=== PATIENT | female | born 1945 | race Caucasian/White ===

== ENCOUNTER 2017-03-18 19:46 | Emergency (ER) | payer MEDICARE, BC ==
[~2017-03-18] VITALS: Ht 160 cm; Wt 90.7 kg
[~2017-03-18 19:46] MED LIST: ALN70T; BPR150TCR PO; CHOL10003 PO; CYAN100021 PO; CYAN10007 PO; Calcium PO; DULO60CA6 PO; HYDR1TAB PO; LEVO500T69 PO; LISI1TAB2 PO; LVT.1T PO; METF500T8 PO; METR500T PO; MULT-963 PO; NF-ESOM40C PO; PRM25T PO; TMZP15C; TMZP15C PO; VENL25TA5; VIT1TABL57 PO
--- NOTE | 2017-03-18 19:53 | ED Fall/Injury ---
General Chief Complaint: Trauma-Non Activation Stated Complaint: FALL Source: patient Exam Limitations: no limitations History of Present Illness Time seen by provider: 19:51 Initial Comments To ER per EMS from home with reports of a fall. Patient tripped over her carpet at home striking face first on the floor. She did have epistaxis that seems to have improved. She does have a deformity to left wrist. Occurred: just prior to arrival Severity: moderate Injuries/Pain Location: head, face, neck Allergies and Home Medications Allergies Coded Allergies: morphine (Unverified Allergy, Intermediate, RED RASH WITH HIVES, 07/28/13) Sulfa (Sulfonamide Antibiotics) (Verified Allergy, Unknown, 11/03/06) Home Medications Amoxicillin 500 Mg Capsule, 500 MG PO TID, #21 Prescribed by: JOSE ALFREDO LLOYD on 03/18/171 Bupropion Hcl 150 Mg Tablet, 1 TAB PO DAILY, #30 (Reported) Cholecalciferol 1,000 Unit Tablet, 1,000 UNIT PO DAILY, (Reported) Cyanocobalamin 1,000 Mcg Tablet.sa, 1,000 MCG PO DAILY, (Reported) Esomeprazole Mag Trihydrate 40 Mg Capsule.dr, 40 MG PO DAILY, (Reported) Hydrocodone/Acetaminophen 1 Each Tablet, 1 EACH PO Q4H PRN for PAIN-MODERATE TO SEVERE, #30 Prescribed by: JOSE ALFREDO LLOYD on 03/18/172116 Levothyroxine Sodium 100 Mcg Tablet, 100 MCG PO DAILY, (Reported) Lisinopril/Hydrochlorothiazide 1 Each Tablet, 1 TAB PO DAILY, (Reported) Multivitamin 1 Each Tablet, 1 EACH PO DAILY, (Reported) Constitutional: see HPI Eyes: No Symptoms Reported Ears, Nose, Mouth, Throat: no symptoms reported Respiratory: no symptoms reported Cardiovascular: no symptoms reported Genitourinary: no symptoms reported Musculoskeletal: no symptoms reported Skin: no symptoms reported Psychiatric/Neurological: No Symptoms Reported Past Zwjtnwe-Juckcb-Aiorzu Hx Patient Social History Alcohol Use: Denies Use Recreational Drug Use: No Smoking Status: Never a Smoker Recent Hopitalizations: No Immunizations Up To Date Tetanus Booster (TDap): Unknown PED Vaccines UTD: Yes Date of Pneumonia Vaccine: Jul 04, 2009 Date of Influenza Vaccine: Jul 17, 2014 Seasonal Allergies Seasonal Allergies: Yes Surgeries HX Surgeries: Yes (TUMOR UNDER KNEE CAP, TUMOR BEHIND THYROID) Respiratory Hx Respiratory Disorders: No Cardiovascular Hx Cardiac Disorders: No Neurological Hx Neurological Disorders: No Reproductive System Hx Reproductive Disorders: No (HYSTERECTOMY) Sexually Transmitted Disease: No HIV/AIDS: No Female Reproductive Disorders: Denies Genitourinary Hx Genitourinary Disorders: No Gastrointestinal Hx Gastrointestinal Disorders: No Gastrointestinal Disorders: Abdominal Hernia, Gastroesophageal Reflux, Gastrointestinal Bleed, Hiatal Hernia Musculoskeletal Hx Musculoskeletal Disorders: Yes (L ANKLE) Musculoskeletal Disorders: Fibromyalgia, Fractures Endocrine Hx Endocrine Disorders: Yes Endocrine Disorders: Hypothyroidsim, Diabetes, Non-Insulin dep HEENT HX ENT Disorders: Yes HEENT Disorders: Cataract Cancer Hx Cancer: No Psychosocial Hx Psychiatric Problems: Yes Behavioral Health Disorders: Depression Integumentary HX Skin/Integumentary Disorder: Yes (ADULT ACNE) Blood Transfusions Hx Blood Disorders: Yes (ANEMIA) Adverse Reaction to a Blood Tr: No Family Medical History Significant Family History: No Pertinent Family Hx Physical Exam Vital Signs Vital Sign - Last 12Hours 03/18/17 03/18/17 19:48 21:13 Temp 98.0 Pulse 86 Resp 18 B/P (MAP) 111/52 Pulse Ox 98 O2 Delivery Room Air O2 Flow Rate 2.00 Capillary Refill : General Appearance: WD/WN, no apparent distress HEENT: PERRL/EOMI, normal ENT inspection, TMs normal, other (dried blood in nose, no septal hematoma, no active bleeding. ) Neck: non-tender, full range of motion Respiratory: normal breath sounds, no respiratory distress, no accessory muscle use Gastrointestinal: normal bowel sounds, non tender, soft Extremities: other (deformity of left wrist. distally neurovascularly intact. ) Neurologic/Psychiatric: alert, normal mood/affect, oriented x 3 Skin: normal color, warm/dry Comments I did end up cauterizing the right side of the nasal septum with one stick of silver nitrate for a slow but persistent oozing of blood from the anterior septum. Deven Coma Score Best Eye Response: (4) Open Spontaneously Best Verbal Response: (5) Oriented Best Motor Response: (6) Obeys Commands [place] Total: 15 Splinting and Joint Reduction : Pre-Proc Neuro Vasc Exam: normal Post-Proc Neuro Vasc Exam: normal, unchanged from pre-exam Hand-Made Type: orthoglass Splint Application: Short Arm Progress/Results/Core Measures Results/Orders My Orders Orders - JOSE ALFREDO LLOYD APRN Lidocaine 2% Injection 20 Ml (Xylocaine (03/18/17 20:00) Fentanyl Injection (Sublimaze Injection (03/18/17 20:00) Ct Head/Face/Cervical Wo (03/18/17 19:49) Forearm, Left, 2 Views (03/18/17 19:49) Fentanyl Injection (Sublimaze Injection (03/18/17 20:45) Midazolam Injection (Versed Injection) (03/18/17 20:45) Forearm, Left, 2 Views (03/18/17 21:08) Oxymetazoline 0.05% Nasal [place] (Afrin 0. (03/19/17 09:00) Forearm, Right, 2 Views (03/18/17 21:11) Rx-Hydrocodone/Apap 5-325 Mg (Rx-Vicodin (03/18/17 21:45) Medications Given in ED Current Medications Medications Dose Ordered Sig/Barber Route Start Time Stop Time Status Last Admin Dose Admin Acetaminophen/ Hydrocodone Bitart 1 ea Q4H PRN PO 03/18/17 21:45 03/18/17 21:52 DC 03/18/17 21:51 1 EA Fentanyl Citrate 75 mcg ONCE ONCE IVP 03/18/17 20:00 03/18/17 20:01 DC 03/18/17 19:57 75 MCG Fentanyl Citrate 75 mcg ONCE ONCE IVP 03/18/17 20:45 03/18/17 20:46 DC 03/18/17 20:54 75 MCG Lidocaine HCl 20 ml ONCE ONCE INJ 03/18/17 20:00 03/18/17 20:01 DC 03/18/17 20:53 10 ML Midazolam HCl 2 mg ONCE ONCE IVP 03/18/17 20:45 03/18/17 20:46 DC 03/18/17 20:54 2 MG Vital Signs/I&O Vital Sign - Last 12Hours 03/18/17 03/18/17 19:48 21:13 Temp 98.0 Pulse 86 Resp 18 B/P (MAP) 111/52 Pulse Ox 98 O2 Delivery Room Air Nasal Cannula O2 Flow Rate 2.00 Progress Note : Progress Note 2110-conscious sedation was done to reduce the dorsally angulated distal radius fracture. Patient was given a total of 75 g of fentanyl and 2 mg of Versed. She had no episodes of desaturation or apnea. She remained arousable to verbal stimuli during the procedure and tolerated the procedure well. She additionally got 10 mL of 2 percent lidocaine as a hematoma block. She was then splinted using a sugar tong style splint with 3 inch Ortho-Glass. ECG Initial ECG Impression Date: Mar 18, 2017 Diagnostic Imaging Diagonstic Imaging: CT Comments NAME: JANICE CASTILLO MED REC#: [id number] PT STATUS: REG ER : 1945 PHYSICIAN: JOSE ALFREDO LLOYD LOAN OPERATIONS MANAGER ADMIT DATE: 03/18/17/ER Signed Date of Exam:03/18/17 CT HEAD/FACE/CERVICAL WO PROCEDURE: CT head, face, and cervical spine without contrast. TECHNIQUE: Multiple contiguous axial images were obtained through the head, neck, and facial bones without the use of intravenous contrast. Sagittal and coronal reformations through the cervical spine and facial bones were also performed. INDICATION: Fall. Head injury. COMPARISON: None FINDINGS: Head CT: No acute intracranial hemorrhage, mass effect or edema is demonstrated. Snell-white junction is preserved. The ventricles appear normal. No acute focal lesion is suspected. Maxillofacial CT: There is a comminuted nondisplaced nasal fracture. No additional fracture or malalignment is seen. Nasal septum is minimally tortuous to the left with small septal spur. There is minimal mucosal thickening in the ethmoid sinuses. Sinuses otherwise appear clear as visualized. Orbits appear intact. Cervical spine CT: No acute fracture, traumatic malalignment or osseous destructive process is seen. Vertebral body heights are maintained. There is disc space narrowing and spurring at C5/C6.. There is facet arthropathy throughout the cervical spine. There is minimal anterior subluxation of C3 on C4 and C4 and C5, likely degenerative. There are multiple levels of foraminal narrowing. IMPRESSION: 1. No evidence of an acute intracranial abnormality. 2. Nondisplaced comminuted nasal fracture. No additional maxillofacial fracture is seen. 3. No evidence of an acute cervical spine fracture. Degenerative changes as described. Dictated by: Dictated on workstation # [id number] Dict: 03/18/172046 Trans: 03/18/172104 [facility] [id number] Interpreted by: JOSR RAMIREZ DO Electronically signed by: JOSR RAMIREZ DO 03/18/172104 NAME: JANICE CASTILLO MED REC#: [id number] PT STATUS: REG ER : 1945 PHYSICIAN: JOSE ALFREDO LLOYD APRN ADMIT DATE: 03/18/17/ER Signed Date of Exam:03/18/17 FOREARM, LEFT, 2 VIEWS INDICATION: Fall. Pain. COMPARISON: None. EXAMINATION: Two views of the left forearm were obtained. FINDINGS: There is an impacted angulated fracture of the distal radius and distal ulna with moderate (greater than 45 degrees) dorsal angulation of the distal fracture fragments. No additional fracture or malalignment is seen. IMPRESSION: Dorsally angulated impacted distal radius and ulnar fractures, as described. Report was called to DOMENICA Khanna in the [facility], [place], operated by [facility] at 8:22 p.m., by heydi. Dictated by: Dictated on workstation # [id number] Dict: 03/18/172016 Trans: 03/18/172031 [facility] [id number] Interpreted by: JOSR RAMIREZ DO Electronically signed by: JOSR RAMIREZ DO 03/18/172031 Departure Impression Impression: Primary Impression: Fall at home Additional Impressions: Epistaxis Nasal fracture Wrist fracture Disposition: 01 HOME, SELF-CARE Condition: Stable Departure-Patient Inst. Decision time for Depature: 21:10 Referrals: KAREN SANDOVAL MD, JON C MD OGDEN, JOHN T MD ORENDER, JACQUELINE S DO (PCP/Family) Primary Care Physician MEREDITH MACIEL MICHAEL P MD Patient Instructions: Wrist Fracture (DC) Add. Discharge Instructions: 1. Wear the splint at all times. Do not take it off even to shower. He should keep this dry when showering so placed a trash bag over this and duct tape it around the upper arm. Take pain medication as directed. Call one of the orthopedic surgeons of your choosing tomorrow morning at 8 a.m. to make an appointment to be seen sometime next week. Take pain medication as directed. Keep the hand elevated to help reduce swelling. Return to ER for any intolerable pain, loss of sensation to the fingertips or any other concerns. 2. You've also broken her nasal bones. Take antibiotics as directed for this and call Dr. Sandoval for an appointment for follow-up. Do not blow your nose. All discharge instructions reviewed with patient and/or family. Voiced understanding. Scripts Amoxicillin (Amoxicillin) 500 Mg Capsule 500 MG PO TID, #21 CAP Prov: JOSE ALFREDO LLOYD APRN 03/18/17 Hydrocodone/Acetaminophen ([place] 5-325 Tablet) 1 Each Tablet 1 EACH PO Q4H Y for PAIN-MODERATE TO SEVERE, #30 TAB Prov: JOSE ALFREDO LLOYD APRN 03/18/17 Copy Copies To 1: DAJA WILSON PETER J APRN Mar 18, 2017 19:53
[2017-03-18] MEDS ORDERED: fentaNYL INJECTION 100 MCG/2 ML AMP IVP ONE ×2 (20:00→20:45)
[2017-03-18] MEDS ORDERED: LIDOCAINE 2% 20 ML (XYLOCAINE) VIAL INJ ONE (20:00)
--- NOTE | 2017-03-18 20:24 | Diagnostic Imaging Report ---
INDICATION: Fall. Pain. COMPARISON: None. EXAMINATION: Two views of the left forearm were obtained. FINDINGS: There is an impacted angulated fracture of the distal radius and distal ulna with moderate (greater than 45 degrees) dorsal angulation of the distal fracture fragments. No additional fracture or malalignment is seen. IMPRESSION: Dorsally angulated impacted distal radius and ulnar fractures, as described. Report was called to DOMENICA Khanna in the [facility] ER at 8:22 p.m., by niko. Dictated by: Dictated on workstation # [id number]
[2017-03-18] MEDS ORDERED: MIDAZOLAM 2 MG/2 ML (VERSED) VIAL IVP ONE (20:45)
--- NOTE | 2017-03-18 20:56 | Diagnostic Imaging Report ---
PROCEDURE: CT head, face, and cervical spine without contrast. TECHNIQUE: Multiple contiguous axial images were obtained through the head, neck, and facial bones without the use of intravenous contrast. Sagittal and coronal reformations through the cervical spine and facial bones were also performed. INDICATION: Fall. Head injury. COMPARISON: None FINDINGS: Head CT: No acute intracranial hemorrhage, mass effect or edema is demonstrated. Snell-white junction is preserved. The ventricles appear normal. No acute focal lesion is suspected. Maxillofacial CT: There is a comminuted nondisplaced nasal fracture. No additional fracture or malalignment is seen. Nasal septum is minimally tortuous to the left with small septal spur. There is minimal mucosal thickening in the ethmoid sinuses. Sinuses otherwise appear clear as visualized. Orbits appear intact. Cervical spine CT: No acute fracture, traumatic malalignment or osseous destructive process is seen. Vertebral body heights are maintained. There is disc space narrowing and spurring at C5/C6.. There is facet arthropathy throughout the cervical spine. There is minimal anterior subluxation of C3 on C4 and C4 and C5, likely degenerative. There are multiple levels of foraminal narrowing. IMPRESSION: 1. No evidence of an acute intracranial abnormality. 2. Nondisplaced comminuted nasal fracture. No additional maxillofacial fracture is seen. 3. No evidence of an acute cervical spine fracture. Degenerative changes as described. Dictated by: Dictated on workstation # [id number]
[2017-03-18] MEDS ORDERED: HYDR-757 PO (21:17)
[2017-03-18] MEDS ORDERED: AMOX500C2 PO (21:21)
--- NOTE | 2017-03-18 21:36 | Diagnostic Imaging Report ---
INDICATION: Postreduction. COMPARISON: 03/18/2017 at 8:11 p.m. EXAMINATION: Two views of the left forearm were obtained through cast material 03/18/2017 at 9:37 p.m. FINDINGS: There has been interval reduction of the angulated distal radius and ulnar fractures. There is some minimal (2-3 mm) lateral displacement of the distal fracture fragments at the radius and ulna. Alignment otherwise appears nearly anatomic. IMPRESSION: Previously described dorsal angulation of the distal radius and ulnar fracture fragments has been reduced. There is minimal lateral angulation of the distal radius and ulnar fracture fragments, as described. Dictated by: Dictated on workstation # [id number]
--- NOTE | 2017-03-18 21:36 | Diagnostic Imaging Report ---
INDICATION: Fall. Pain. COMPARISON: None. EXAMINATION: Two views of the right forearm were obtained. FINDINGS: No acute fracture, malalignment or osseous destructive process is seen. IMPRESSION: Negative right forearm. Dictated by: Dictated on workstation # [id number]
[2017-03-18] MEDS ORDERED: RX-HYDROCODONE/APAP 5/325 MG #4 TAB PK PO PRN (21:45)
[2017-03-18 21:54] VITALS: BP 144/83
[2017-03-19] MEDS ORDERED: OXYMETAZOLINE (AFRIN) 0.05% NA 15 ML BTL SCH (09:00)
== END 2017-03-18 21:52 | disposition home or self-care (01) ==
LOC: EDUNIT# 19:46 → ER 19:47
DX: S02.2XXA Fracture of nasal bones, initial encounter for closed fracture (principal); S62.91XA Unspecified fracture of right hand, initial encounter for closed fracture; R04.0 Epistaxis; W01.198A Fall on same level from slipping, tripping and stumbling with subsequent striking against other object, initial encounter
CPT/HCPCS: 70450; 70486; 72125; 73090; 93041

== ENCOUNTER → 2017-05-19 | Outpatient (CLI) | payer MEDICARE ==
[~2017-05-19] MED LIST changes: +AMOX500C2 PO; +HYDR-757 PO
--- NOTE | 2017-05-19 19:41 | Diagnostic Imaging Report ---
Digital mammogram bilateral screening with tomosynthesis. This study was compared to the prior exams of 03/10/2016, 03/07/2015, and 03/01/2014. At this time, there are no current complaints. The current study was also evaluated with a Computer Aided Detection (CAD) system. FINDINGS: The previous studies have shown a large 3 x 4 cm area of mixed calcification in the medial retroareolar region of the left breast. There were also a few scattered coarse calcifications in the right breast. These findings were felt to be secondary to fat necrosis and related to the patient's prior reduction mammoplasty procedure. On this exam, those findings are again evident and no different. There are scattered fibroglandular densities in both breasts which could obscure a lesion. When compared to the previous study, there does not appear to have been any significant change. There is no primary or secondary sign of malignancy noted. The tomographic views also fail to show any sign of malignancy. However, on the MLO views there are punctate densities overlying each axilla. I suspect that these are secondary to deodorant artifact. I would recommend that the MLO views be repeated for better quality. IMPRESSION: 1. There is no evidence of malignancy. 2. The MLO views of each breast should be repeated. ACR BI-RADS Category 0: Incomplete. (Needs additional imaging evaluation). Result letter will be mailed to the patient. Note: At least 10% of breast cancer is not imaged by mammography. Dictated by: Dictated on workstation # [id number]
== END ==
LOC: RAD 14:43
PROVIDERS: ATTEND Family Medicine
DX: Z12.31 Encounter for screening mammogram for malignant neoplasm of breast (principal); R92.8 Other abnormal and inconclusive findings on diagnostic imaging of breast
CPT/HCPCS: 77067

== ENCOUNTER → 2017-05-27 | Outpatient (CLI) | payer MEDICARE ==
--- NOTE | 2017-05-29 07:47 | Diagnostic Imaging Report ---
INDICATION: Digital mammogram bilateral screening. ADDENDUM TO EXAM: Patient's bilateral diagnostic mammogram performed on 05/19/17. The current study was also evaluated with a Computer Aided Detection (CAD) system. The previous mammogram noted punctate densities overlying each axilla on the MLO view. These findings were felt to be related to deodorant artifact. The patient returned today for additional mammographic views of each breast. On the additional MLO views the punctate densities are no longer evident. Consequently they were secondary to deodorant artifact. IMPRESSION: There is no evidence of malignancy. ACR BI-RADS Category 1: Negative. Result letter will be mailed to the patient. Note: At least 10% of breast cancer is not imaged by mammography. Dictated by: Dictated on workstation # [id number]
== END ==
LOC: RAD 14:11
PROVIDERS: ATTEND Family Medicine
DX: R92.1 Mammographic calcification found on diagnostic imaging of breast (principal)
CPT/HCPCS: 77066

== ENCOUNTER → 2017-06-17 | Outpatient (CLI) | payer MEDICARE ==
--- NOTE | 2017-06-17 17:49 | Diagnostic Imaging Report ---
Examination: DEXA scan. Indication: osteopenia Technique: Bone mineral density estimated based on dual energy radiography over the lumbar spine and femoral necks, was performed. Findings: The lumbar spine T-score is -1. This is 2.2% increased density measurement compared to 10/23/2010. The T-score over the left femoral neck is 1.2 and on the right side is 1.2. This is 5.1% decreased density compared to 2011 measurements. IMPRESSION: Osteopenia. Dictated by: Dictated on workstation # [id number]
== END ==
LOC: RAD 10:26
PROVIDERS: ATTEND Family Medicine
DX: M81.0 Age-related osteoporosis without current pathological fracture (principal)
CPT/HCPCS: 77080

== ENCOUNTER → 2017-09-08 | Outpatient (CLI) | payer MEDICARE ==
--- NOTE | 2017-09-08 11:24 | Diagnostic Imaging Report ---
PROCEDURE: US Carotid Duplex Bilateral. INDICATION: History of hypertension. TECHNIQUE: Multiple real-time grayscale images were obtained over the carotid arteries in various projections bilaterally. Additional duplex Doppler and color Doppler images were also obtained. CORRELATION STUDY: 11/09/2014 FINDINGS: Color and grayscale images demonstrate mild plaque-like formation to be present. Visualized area of stenosis does not appear to be present. No abnormally elevated velocity to suggest a focal area of narrowing. On the right, maximum velocity is distally at 99 cm/s with an ICA/CCA ratio of 1.2. On the left, maximum velocity in the distal aspect of the ICA at 104 cm/s with an ICA/CCA ratio of 1.7. External carotid arteries patent. Vertebral arteries with antegrade direction of flow. IMPRESSION: 1. Mild plaque-like formation of the carotid arteries. As demonstrate on prior study, there is mildly elevated velocity in the distal aspect of the left ICA. However, no appreciable underlying plaque or visualized narrowing demonstrated. This may be owing to tortuous course. Potential estimated underlying stenosis appears to be less than 40%. Periodic followup survey assessment recommended. Dictated by: Dictated on workstation # [id number]
== END ==
LOC: RAD 09:00
PROVIDERS: ATTEND Family Medicine
DX: I65.29 Occlusion and stenosis of unspecified carotid artery (principal); I10 Essential (primary) hypertension
CPT/HCPCS: 93880

== ENCOUNTER 2017-11-13 21:26 | Emergency (ER) | payer MEDICARE ==
[~2017-11-13] VITALS: Ht 157.5 cm; Wt 104.3 kg
--- NOTE | 2017-11-13 21:43 | ED Fall/Injury ---
General Stated Complaint: FELL ON ICE,POSS BROKEN R ARM Source: patient History of Present Illness Date Seen by Provider: Nov 13, 2017 Time Seen by Provider: 21:28 Initial Comments PT ARRIVES VIA POV FROM HOME PT STATES SHE WAS WALKING OUT DOOR, TO GET HER DOG BACK INSIDE, BECAUSE DOG WAS SLIPPING ALL OVER THE ICE. PT TOOK ONE STEP OUT HER DOOR, AND SLIPPED AND FELL, LANDING ON OUTSTRETCHED RIGHT HAND--OCCURRED JUST PRIOR TO ARRIVAL C/O RIGHT WRIST PAIN NO PARESTHESIAS OR MOTOR DEFICITS NO PRIOR INJURY TO THIS WRIST--FRACTURED LEFT WRIST AND HAD ORIF A YEAR AGO. DR. LARSON PT IS RIGHT HANDED PT IS CARING FOR HER DAUGHTER WHO BROKE HER LEG 10 DAYS AGO PT STATES SHE ALSO LANDED ON HER BUTTOCKS, BUT DENIES ANY BACK OR HIP PAIN-- STATES HER LOWER BACK ALWAYS HURTS SOME, BUT IS NOT ANY DIFFERENT THAN NORMAL WAS ABLE TO GET BACK UP ON HER OWN AND ABLE TO AMBULATE WITHOUT DIFFICULTY DID NOT HIT HEAD AND NO LOSS OF CONSCIOUSNESS NO NECK PAIN PCP:DR. WILSON Allergies and Home Medications Allergies Coded Allergies: morphine (Unverified Allergy, Intermediate, RED RASH WITH HIVES, 11/13/17) Sulfa (Sulfonamide Antibiotics) (Verified Allergy, Unknown, 11/03/06) Home Medications Amoxicillin 500 Mg Capsule, 500 MG PO TID, #21 Prescribed by: JOSE ALFREDO LLOYD on 03/18/172120 Bupropion Hcl 150 Mg Tablet, 1 TAB PO DAILY, #30 (Reported) Cholecalciferol 1,000 Unit Tablet, 1,000 UNIT PO DAILY, (Reported) Cyanocobalamin 1,000 Mcg Tablet.sa, 1,000 MCG PO DAILY, (Reported) Esomeprazole Mag Trihydrate 40 Mg Capsule.dr, 40 MG PO DAILY, (Reported) Hydrocodone/Acetaminophen 1 Each Tablet, 1 EACH PO Q4H PRN for PAIN-MODERATE TO SEVERE, #30 Prescribed by: JOSE ALFREDO LLOYD on 03/18/172116 Levothyroxine Sodium 100 Mcg Tablet, 100 MCG PO DAILY, (Reported) Lisinopril/Hydrochlorothiazide 1 Each Tablet, 1 TAB PO DAILY, (Reported) Multivitamin 1 Each Tablet, 1 EACH PO DAILY, (Reported) Constitutional: no symptoms reported Respiratory: no symptoms reported Cardiovascular: no symptoms reported Gastrointestinal: no symptoms reported Genitourinary: no symptoms reported Musculoskeletal: see HPI Skin: no symptoms reported Psychiatric/Neurological: No Symptoms Reported Past Fdcpwek-Vtfysy-Bnwncy Hx Patient Social History Recent Hopitalizations: No Immunizations Up To Date Tetanus Booster (TDap): Unknown PED Vaccines UTD: Yes Date of Pneumonia Vaccine: Jul 04, 2009 Date of Influenza Vaccine: Jul 17, 2014 Seasonal Allergies Seasonal Allergies: Yes Surgeries History of Surgeries: Yes (LEFT ANKLE FX/ORIF WITH HARDWARE REMOVAL-SURGERIES X 3; LEFT WRIST FX/ORIF 2017; RIGHT KNEE BENIGN TUMOR; BENIGN TUMOR IN NECK WITH THYROIDECTOMY; OPEN BRIANNA WITH EXPLORATORY LAP/KIKO; HYST/BSO WITH KIKO; COLONOSCOPIES WITH POLYPECTOMY; VENTRAL HERNIA REPAIR; BREAST REDUCTION) Surgeries: Abdominal, Gallbladder, Hysterectomy, Oophorectomy, Orthopedic, Thyroidectomy, Tonsillectomy Respiratory History of Respiratory Disorde: No Cardiovascular History of Cardiac Disorders: Yes (CAROTID DISEASE) Cardiac Disorders: Hypertension Neurological History of Neurological Disord: No Reproductive System Hx Reproductive Disorders: No (HYSTERECTOMY) Sexually Transmitted Disease: No HIV/AIDS: No Female Reproductive Disorders: 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, Menopausal Genitourinary History of Genitourinary Disor: No Gastrointestinal History of Gastrointestinal Di: Yes Gastrointestinal Disorders: Abdominal Hernia, Colitis, Gastroesophageal Reflux , Gastrointestinal Bleed, Polyps, Hiatal Hernia Musculoskeletal History of Musculoskeletal Dis: Yes (L ANKLE FX/ORIF; LEFT WRIST FX/ORIF) Musculoskeletal Disorders: Degenerate Disk Disease (ESPECIALLY OF LUMBAR SPINE) , Osteoporosis, Fibromyalgia, Chronic Back Pain, Fractures Endocrine History of Endocrine Disorders: Yes Endocrine Disorders: Hypothyroidsim, Diabetes, Non-Insulin dep HEENT History of HEENT Disorders: Yes HEENT Disorders: Cataract Cancer History of Cancer: No Psychosocial History of Psychiatric Problem: Yes Behavioral Health Disorders: Sleep Difficulties, Anxiety, Depression Integumentary History of Skin or Integumenta: Yes (ADULT ACNE) Blood Transfusions History of Blood Disorders: Yes (ANEMIA, B12 DEFICIENCY) Adverse Reaction to a Blood Tr: No Family Medical History Significant Family History: No Pertinent Family Hx Physical Exam Vital Signs Vital Signs - First Documented 11/13/17 21:28 Temp 98.0 Pulse 96 Resp 20 B/P (MAP) 141/88 (105) Pulse Ox 97 O2 Delivery Room Air Capillary Refill : General Appearance: WD/WN, no apparent distress, obese Neck: non-tender, full range of motion, supple, normal inspection Cardiovascular: normal peripheral pulses, regular rate, rhythm, no murmur Respiratory: chest non-tender, normal breath sounds, no respiratory distress, no accessory muscle use Gastrointestinal: non tender, soft Back: normal inspection, no CVA tenderness, no vertebral tenderness Extremities: other (RIGHT WRIST WITH SWELLING, TENDERNESS AND DEFORMITY. 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, no motor/sensory deficits, alert, normal mood/affect, oriented x 3 Skin: normal color, warm/dry Splinting and Joint Reduction : Arm Sling: [place] Hand-Made Type: orthoglass Splint Application: Short Arm Progress/Results/Core Measures Results/Orders My Orders Orders - FILIBERTO GELLER DO Forearm, Right, 2 Views (11/13/17 21:37) Wrist, Right, 3 Views Or More (11/13/17 21:37) Splint Application Short Arm (11/13/17 22:17) Sling (11/13/17 22:17) Hydrocodone/Apap 10/325 Tablet (Lortab 1 (11/13/17 22:30) Rx-Hydrocodone/Apap 5-325 Mg (Rx-Vicodin (11/13/17 22:30) Ibuprofen Tablet (Motrin Tablet) (11/13/17 22:30) Vital Signs/I&O Vital Sign - Last 12Hours 11/13/17 21:28 Temp 98.0 Pulse 96 Resp 20 B/P (MAP) 141/88 (105) Pulse Ox 97 O2 Delivery Room Air Diagnostic Imaging Comments XRAYS RIGHT WRIST AND FOREARM--FX DISTAL RADIUS AND ULNAR STYLOID, PENDING RADIOLOGIST REVIEW Reviewed: Reviewed by Me Departure Impression Impression: Primary Impression: Closed fracture of right distal radius and ulna Additional Impression: S/P FALL ON ICE Disposition: 01 HOME, SELF-CARE Condition: Stable Departure-Patient Inst. Referrals: DAJA WILSON DO (PCP/Family) Primary Care Physician TESSA LARSON DO Patient Instructions: How to Use a Shoulder Sling, SPLINT CARE, Wrist Fracture (DC) Add. Discharge Instructions: WEAR SPLINT AND SLING AT ALL TIMES ICE TO AREA AT 20 MINUTE INTERVALS ELEVATE HAND MUCH POSSIBLE FOLLOW UP WITH DR. LARSON IN 3-4 DAYS FOR FURTHER CARE--CALL ON [facility] TO MAKE APPOINTMENT Scripts Hydrocodone/Ibuprofen (Hydrocodone-Ibuprofen 7.5-200) 1 Each Tablet 1-2 EACH PO Q4H for Pain, #20 TAB Prov: FILIBERTO GELLER DO 11/13/17 FILIBERTO GELLER DO Nov 13, 2017 21:42
[2017-11-13] MEDS ORDERED: HYDR-87 PO (22:25)
[2017-11-13] MEDS ORDERED: IBUPROFEN 800 MG (MOTRIN) TAB PO ONE (22:30)
[2017-11-13] MEDS ORDERED: RX-HYDROCODONE/APAP 5/325 MG #4 TAB PK PO PRN (22:30)
[2017-11-13] MEDS ORDERED: HYDROcodone/APAP 10 MG/325 MG (LORTAB) TAB PO ONE (22:30)
[2017-11-13] MEDS ORDERED: fentaNYL INJECTION 100 MCG/2 ML AMP IM STA (22:42)
[2017-11-13] MEDS ORDERED: KETOROLAC 60 MG/2 ML VIAL IM ONE (22:45)
[2017-11-13 23:20] VITALS: BP 141/88
--- NOTE | 2017-11-14 06:12 | Diagnostic Imaging Report ---
EXAM: WRIST, RIGHT, 3 VIEWS OR MORE INDICATION: Fall. Right wrist pain. COMPARISON: Right wrist radiograph 03/18/2017. FINDINGS: Comminuted impacted intra-articular fracture of the distal right radial metaphysis. Mildly displaced right ulnar styloid fracture. Moderate degenerative changes in the CMC joints, greatest in the first CMC joint. No radiopaque foreign bodies. IMPRESSION: Comminuted impacted intra-articular fracture of the distal right radial metaphysis. Mildly displaced right ulnar styloid fracture. Dictated by: Dictated on workstation # [id number]
--- NOTE | 2017-11-14 06:13 | Diagnostic Imaging Report ---
EXAM: FOREARM, RIGHT, 2 VIEWS INDICATION: Fall. Right arm pain. COMPARISON: Right wrist radiographs also performed today. FINDINGS: Again seen is the comminuted impacted intra-articular right radius fracture. Mildly displaced right ulnar styloid fracture. No other fractures. No radiopaque foreign bodies. IMPRESSION: Comminuted impacted intra-articular fracture of the distal right radius. Mildly displaced right ulnar styloid fracture. Dictated by: Dictated on workstation # [id number]
--- OUTSIDE RECORDS SUMMARY | 2017-11-14 11:37 | XMS REPORT | Clinical Summary ---
Author Author [facility] Organization [facility] Address Unknown Phone Unavailable Care Team Providers Care Biology Research Assistant Name Role Phone Gabriella Manriquez MD PCP Jennifer Rizo PA-C Unavailable Source Comments Some departments are not documenting in the electronic medical record. If you do not see the information that you expected, contact Release of Information in the Health Information Management department at [phone] for further assistance in locating additional records.[facility] Allergies Active Allergy Reactions Severity Noted Date Comments Sulfa (Sulfonamide HIVES 12/26/2010 Antibiotics) Current Medications Prescription Sig. Disp. Refills Start End Date Status Date levothyroxine (SYNTHROID) Take 112 mcg by mouth Active 100 mcg PO tablet daily. lisinopril/hydrochlorothi Take 1 Dose by mouth Active azide (ZESTORETIC) daily. 10/12.5 mg tablet 1 Dose metformin-XR(+) Take 500 mg by mouth Active (GLUCOPHAGE XR) 500 mg PO daily with dinner. tablet esomeprazole DR(+) Take 40 mg by mouth every Active (NEXIUM) 40 mg PO capsule morning. cyanocobalamin (VITAMIN Take 1,000 mcg by mouth Active B-12) 1,000 mcg PO tablet daily. Cholecalciferol (Vitamin Take 1 Tab by mouth Active D3) (VITAMIN D-3) 1,000 daily. unit PO Chew DULoxetine DR (CYMBALTA) Take 60 mg by mouth Active 60 mg capsule daily. NAPROXEN SODIUM (ALEVE Take by mouth as Needed. Active PO) ferrous sulfate (IRON) Take 325 mg by mouth Active 325 mg (65 mg iron) three times daily. 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 GERD (gastroesophageal reflux disease) 12/26/2010 Overview: She reports a recent EGD which showed a schatzki's ring, she says it did not require dilatation. She reports she also had a hiatal hernia. Schatzki's ring 12/26/2010 Hiatal hernia 12/26/2010 Vitamin D deficiency 12/26/2010 Thyroid mass 12/26/2010 Overview: A. 01/03/2010 s/p right hemithyroidectomy. The pathology showed nodular hyperplasia with dominant nodule. There is no evidence of malignancy. Neck mass 12/26/2010 Overview: A. 10/2010 Carotid Doppler post operatively showed a mass in the bed of the right thyroid. B. 10/30/2010 CT neck showed a 3.7x3.7x6 mc mass arising from the right thyroid bed. C. 12/11/2010 Carotid Doppler showed well-defined mildly lobulated heterogeneous hypervascular soft tissue mass in the right thyroid bed measuring 5.4 x 4.1 x 2.4 cm. The left lobe of the thyroid measures 4.0 x 1.1 x 1.2 cm. There is a colloid cyst in the midpole which measures 0.3 x 0.2 cm. A small cyst is noted in the left isthmus measuring 0.4 cm. Last Assessment & Plan: Resection of the neck mass is planned. Osteopenia 12/26/2010 Unspecified elective surgery for purposes other than remedying health 2010 states Overview: Prior R knee mass surgery. Prior tosillectomy. Prior cholecystectomy. Prior L ankle ORIF. Prior MARCO ANTONIO. Prior right hemithyroidectomy. Hypertension Last Assessment & Plan: Her blood pressure is slightly above goal today. She held her anti-hypertensive today since she was driving up from [place], [place], and didn't want to take a diuretic prior to the ride up. I think we can follow her blood pressure for now. She says it has been well controlled at home. She is scheduled for an echocardiogram and MPI today. I will update you on the results once they are complete. If there are no high risk findings, I see no cardiac contra-indication to surgery. Hypothyroidism Borderline diabetes mellitus Overview: She says she has no complications from her diabetes. Resolved Problems Problem Noted Date Resolved Date Multiple thyroid nodules 12/26/2010 12/26/2010 Family History Medical History Relation Name Comments Diabetes Mother Asthma Other Heart Attack Other Relation Name Status Comments Father Mother Alive Other Social History Tobacco Use Types Packs/Day Years Used Date Never Smoker Smokeless Tobacco: Never Used Alcohol Use Drinks/Week oz/Week Comments No Sex Assigned at Date Recorded Not on file Last Filed Vital Signs Vital Sign Reading Time Taken Blood Pressure 132/84 06/09/2012 1:30 PM CDT Pulse 90 06/09/2012 1:30 PM CDT Temperature 36.6 C (97.8 F) 01/28/2011 10:45 AM CDT Respiratory Rate - - Oxygen Saturation 95% 01/28/2011 10:45 AM CDT Inhaled Oxygen - - Concentration Weight 101.2 kg (223 lb) 06/09/2012 1:30 PM CDT Height 158.1 cm (5' 2.25") 06/09/2012 1:30 PM CDT Body Mass Index 40.46 06/09/2012 1:30 PM CDT Plan of Treatment Health Maintenance Due Date Last Done Comments HEPATITIS C SCREENING 1946 PHYSICAL (COMPREHENSIVE) 1953 EXAM PERTUSSIS VACCINE 1957 TETANUS VACCINE 1963 BREAST CANCER SCREENING 1986 COLORECTAL CANCER 1996 SCREENING SHINGLES VACCINE 2006 OSTEOPOROSIS SCREENING 2011 PREVNAR/PNEUMOVAX (#1) 2011 INFLUENZA VACCINE 05/04/2017 Results Not on filefrom Last 3 Months
--- OUTSIDE RECORDS SUMMARY | 2017-11-14 11:38 | XMS REPORT | Continuity of Care Document ---
Author Author [facility] Organization [facility] Address Unknown Phone Unavailable Allergies Active Description Code Type Severity Reaction Onset Reported/Identified Relationship to Patient Clinical Status Yes Sulfa (Sulfonamide Antibiotics) [id number] Drug Allergy Unknown N/A 2006 Yes morphine [id number] Drug Allergy Moderate RED RASH WITH H 07/28/2013 Medications There is no data. Problems Date Dx Coded Attending Type Code Diagnosis Diagnosed By 03/25/2011 Ot 719.41 JOINT PAIN- LDER 03/25/2011 Ot 719.61 JOINT SYMPTOM NEC-LDER 03/25/2011 Ot V57.1 PHYSICAL THERAPY NEC 04/18/2013 IVÁN WILSON DOQUELINE S Ot 244.9 04/18/2013 SELAMNDER DO, DAJA S Ot 266.2 04/18/2013 SELAMNDER DO, DAJA S Ot 272.4 04/18/2013 SELAMNDER DO, DAJA S Ot 277.7 04/18/2013 SELAMNDER DO, DAJA S Ot 300.00 04/18/2013 SELAMNDER DO, DAJA S Ot 311 04/18/2013 SELAMNDER DO, DAJA S Ot 401.9 04/18/2013 SELAMNDER DO, DAJA S Ot 412 04/18/2013 SELAMNDER DO, DAJA S Ot 530.81 04/18/2013 SELAMNDER DO, DAJA S Ot 558.9 04/18/2013 SELAMNDER DO, DAJA S Ot 562.10 04/18/2013 SELAMNDER DO, DAJA S Ot 715.90 04/18/2013 SELAMNDER DO, DAJA S Ot 780.52 07/21/2013 WILLY OSCAR, MEREDITH Acuña Ot 244.0 07/21/2013 WILLY OSCAR, MEREDITH Acuña Ot 250.00 07/21/2013 WILLY OSCAR, MEREDITH Acuña Ot 278.00 07/21/2013 WILLY OSCAR, MEREDITH S Ot 401.9 07/21/2013 WILLY OSCAR, MEREDITH S Ot 530.81 07/21/2013 WILLY OSCAR, MEREDITH S Ot 552.1 07/21/2013 WILLY OSCAR, MEREDITH S Ot 553.20 07/21/2013 WILLY OSCAR, MEREDITH S Ot 553.3 07/21/2013 WILLY OSCAR, MEREDITH S Ot 553.8 07/21/2013 WILLY OSCAR, MEREDITH S Ot 724.5 07/21/2013 WILLY OSCAR, MEREDITH S Ot 729.1 07/21/2013 WILLY OSCAR, MEREDITH S Ot 789.00 07/21/2013 WILLY OSCAR, MEREDITH S Ot V04.81 07/21/2013 WILLY OSCAR, MEREDITH S Ot V85.39 07/29/2013 CEDRIC OSCAR, MADELEINE Conn Ot 552.20 07/29/2013 CEDRIC OSCAR, MADELEINE Conn Ot 701.9 08/28/2013 CEDRIC OSCAR, MADELEINE M Ot 211.3 08/28/2013 CEDRIC OSCAR, MADELEINE Conn Ot 562.10 08/29/2014 Ot V76.12 08/29/2014 CEDRIC OSCAR, MADELEINE M Ot V72.84 08/29/2014 LONG WILSON DOLINE S Ot V76.12 08/30/2014 Ot V76.12 08/30/2014 CEDRIC OSCAR, MADELEINE M Ot V72.84 08/30/2014 LONG WILSON DOLINE S Ot V76.12 09/03/2014 Ot V76.12 09/03/2014 CEDRIC OSCAR, MADELEINE M Ot V72.84 09/03/2014 DAJA WILSON DO S Ot V76.12 09/03/2014 CEDRIC OSCAR, MADELEINE M Ot V72.84 09/04/2014 CEDRIC OSCAR, MADELEINE Conn Ot 562.10 09/04/2014 CEDRIC OSCAR, MADELEINE Conn Ot V12.72 09/04/2014 CEDRIC OSCAR, MADELEINE Conn Ot V67.09 09/05/2014 CEDRIC OSCAR, MADELEINE Conn Ot 562.10 09/05/2014 CEDRIC OSCAR, MAEDLEINE M Ot V12.72 09/05/2014 CEDRIC OSCAR, MADELEINE M Ot V67.09 09/14/2014 CEDRIC OSCAR, MADELEINE M Ot 562.10 09/14/2014 CEDRIC OSCAR, MADELEINE M Ot V12.72 09/14/2014 CEDRIC OSCAR, MADELEINE M Ot V67.09 10/03/2014 CEDRIC OSCAR, MADELEINE M Ot 562.10 10/03/2014 CEDRIC OSCAR, MADELEINE M Ot V12.72 10/03/2014 CEDRIC OSCAR, MADELEINE M Ot V67.09 11/08/2014 Ot V76.12 11/08/2014 CEDRIC OSCAR, MADELEINE M Ot V72.84 11/08/2014 SELAMNDLETTY FERNANDEZ, DAJA S Ot V76.12 11/08/2014 CEDRIC OSCAR, MADELEINE M Ot V72.84 11/08/2014 CEDRIC OSCAR, MADELEINE M Ot 562.10 11/08/2014 CEDRIC OSCAR, MADELEINE M Ot V12.72 11/08/2014 CEDRIC OSCAR, MADELEINE M Ot V67.09 11/12/2014 STEVE FERNANDEZ DAJA S Ot 433.10 11/12/2014 Ot V76.12 11/12/2014 CEDRIC OSCAR, MADELEINE M Ot V72.84 11/12/2014 STEVE FERNANDEZ DAJA S Ot V76.12 11/12/2014 CEDRIC OSCAR, MADELEINE M Ot V72.84 11/12/2014 CEDRIC OSCAR, MADELEINE M Ot 562.10 11/12/2014 CEDRIC OSCAR, MADELEINE M Ot V12.72 11/12/2014 CEDRIC OSCAR, MADELEINE M Ot V67.09 11/12/2014 STEVE FERNANDEZ, DAJA S Ot 433.10 11/22/2014 SELAMNDER , DAJA S Ot 433.10 02/06/2015 Ot V76.12 02/06/2015 CEDRIC OSCAR, MADELEINE M Ot V72.84 02/06/2015 IVÁN WILSON DOQUELINE S Ot V76.12 02/06/2015 CEDRIC OSCAR, MADELEINE M Ot V72.84 02/06/2015 CEDRIC OSCAR, MADELEINE M Ot 562.10 02/06/2015 CEDRIC OSCAR, MADELEINE M Ot V12.72 02/06/2015 CEDRIC OSCAR, MADELEINE M Ot V67.09 02/06/2015 SELAMNDER DO, DAJA S Ot 433.10 03/20/2015 SELAMNDER DO, DAJA S Ot 719.47 03/26/2015 SELAMNDER DO, DAJA S Ot V76.12 06/13/2015 Ot V76.12 06/13/2015 CEDRIC OSCAR, MADELEINE Conn Ot V72.84 06/13/2015 ORENDER DO, DAJA S Ot V76.12 06/13/2015 CEDRIC OSCAR, MADELEINE Conn Ot V72.84 06/13/2015 CEDRIC OSCAR, MADELEINE Conn Ot 562.10 06/13/2015 CEDRIC OSCAR, MADELEINE Conn Ot V12.72 06/13/2015 CEDRIC OSCAR, MADELEIEN Conn Ot V67.09 06/13/2015 SELAMNDER DO, DAJA S Ot 433.10 06/13/2015 SELAMNDER DO, DAJA S Ot 719.47 06/13/2015 SELAMNDER DO, DAJA S Ot V76.12 03/10/2016 Ot 433.10 CAROTID ARTERY OCCLUSION W O CEREBRAL IN 03/10/2016 Ot 733.90 BONE CARTILAGE DIS NOS 03/10/2016 Ot 784.2 SWELLING IN HEAD NECK 03/10/2016 Ot V76.12 OTH SCREEN MAMMO-MALIGN NEOPLASM OF PJ 03/10/2016 Ot 784.2 SWELLING IN HEAD NECK 03/10/2016 Ot V81.5 SCREEN FOR NEPHROPATHY 03/10/2016 Ot 786.09 RESPIRATORY ABNORM NEC 03/10/2016 Ot 786.2 COUGH 03/10/2016 Ot V76.12 OTH SCREEN MAMMO-MALIGN NEOPLASM OF PJ 03/10/2016 Ot 722.91 DISC DIS NEC /NOS-CERV 03/10/2016 Ot 787.20 DYSPHAGIA, UNSPECIFIED 03/12/2016 JOEY KEEN Ot Z12.31 ENCNTR SCREEN MAMMOGRAM FOR MALIGNANT NE 03/31/2016 JOEY KEEN Ot Z12.31 ENCNTR SCREEN MAMMOGRAM FOR MALIGNANT NE 03/18/2017 JOSE ALFREDO LLOYD PROCESSING MANAGER Ot R04.0 EPISTAXIS 03/18/2017 JOSE ALFREDO LLOYD PROCESSING MANAGER Ot S02.2XXA FRACTURE OF NASAL BONES, INIT ENCNTR FOR 03/18/2017 JOSE ALFREDO LLOYD PROCESSING MANAGER Ot S09.90XA UNSPECIFIED INJURY OF HEAD, INITIAL ENCO 03/18/2017 JOSE ALFREDO LLOYD PROCESSING MANAGER Ot S62.91XA UNSP FRACTURE OF RIGHT WRIST AND HAND, I 03/18/2017 JOSE ALFREDO LLOYD PROCESSING MANAGER Ot W01.198A FALL SAME LEV FROM SLIP/TRIP W STRIKE AG 03/18/2017 Ot V76.12 OTH SCREEN MAMMO-MALIGN NEOPLASM OF PJ 03/18/2017 Ot 722.91 DISC DIS NEC /NOS-CERV 03/18/2017 Ot 787.20 DYSPHAGIA, UNSPECIFIED 03/18/2017 JOEY KEEN ROOFER HELPER Ot Z12.31 ENCNTR SCREEN MAMMOGRAM FOR MALIGNANT NE 05/11/2017 ORENDER DO, DAJA S Ot Z12.31 ENCNTR SCREEN MAMMOGRAM FOR MALIGNANT NE 05/11/2017 Ot 787.20 DYSPHAGIA, UNSPECIFIED 05/11/2017 JOEY KEEN ROOFER HELPER Ot Z12.31 ENCNTR SCREEN MAMMOGRAM FOR MALIGNANT NE 05/11/2017 ORENDER DO, DAJA S Ot Z12.31 ENCNTR SCREEN MAMMOGRAM FOR MALIGNANT NE 05/17/2017 ORENDER DO, DAJA S Ot Z12.31 ENCNTR SCREEN MAMMOGRAM FOR MALIGNANT NE 05/19/2017 Ot 787.20 DYSPHAGIA, UNSPECIFIED 05/19/2017 JOEY KEEN ROOFER HELPER Ot Z12.31 ENCNTR SCREEN MAMMOGRAM FOR MALIGNANT NE 05/19/2017 ORENDER DO, DAJA S Ot Z12.31 ENCNTR SCREEN MAMMOGRAM FOR MALIGNANT NE 05/27/2017 ORENDER DO, DAJA S Ot R92.8 OTH ABN AND INCONCLUSIVE FINDINGS ON DX 05/27/2017 ORENDER DO, DAJA S Ot Z12.31 ENCNTR SCREEN MAMMOGRAM FOR MALIGNANT NE 05/27/2017 ORENDER DO, DAJA S Ot R92.1 MAMMOGRAPHIC CALCIFCN FOUND ON DIAGNOSTI 06/02/2017 ORENDER DO, DAJA S Ot M80.032G AGE-REL OSTEOPOR W CRNT PATH FX, L FOREA 06/15/2017 ORENDER DO, DAJA S Ot R92.8 OTH ABN AND INCONCLUSIVE FINDINGS ON DX 06/15/2017 SELAMNDDAJA SAENZ DO S Ot Z12.31 ENCNTR SCREEN MAMMOGRAM FOR MALIGNANT NE 06/15/2017 SELAMNDER DO, DAJA S Ot M81.0 AGE-RELATED OSTEOPOROSIS W/O CURRENT PAT 06/16/2017 ORENDER DO, DAJA S Ot M81.0 AGE-RELATED OSTEOPOROSIS W/O CURRENT PAT 06/17/2017 ORENDER DO, DAJA S Ot M81.0 AGE-RELATED OSTEOPOROSIS W/O CURRENT PAT 06/18/2017 ORENDER DO, DAJA S Ot M81.0 AGE-RELATED OSTEOPOROSIS W/O CURRENT PAT 06/18/2017 ORENDER DO, DAJA S Ot R92.1 MAMMOGRAPHIC CALCIFCN FOUND ON DIAGNOSTI 06/23/2017 SELAMNDER DO, DAJA S Ot M81.0 AGE-RELATED OSTEOPOROSIS W/O CURRENT PAT 06/24/2017 ORENDER DO, DAJA S Ot R92.1 MAMMOGRAPHIC CALCIFCN FOUND ON DIAGNOSTI 07/08/2017 SELAMNDER DO, DAJA S Ot M81.0 AGE-RELATED OSTEOPOROSIS W/O CURRENT PAT 09/03/2017 SELAMNDER DO, DAJA S Ot I65.29 OCCLUSION AND STENOSIS OF UNSPECIFIED CA 09/03/2017 SELAMNDER DO, DAJA S Ot I65.29 OCCLUSION AND STENOSIS OF UNSPECIFIED CA 09/29/2017 ORENDER DO, DAJA S Ot I10 ESSENTIAL (PRIMARY) HYPERTENSION 09/29/2017 ORENDER DO, DAJA S Ot I65.29 OCCLUSION AND STENOSIS OF UNSPECIFIED CA 10/22/2017 ORENDER DO, DAJA S Ot I10 ESSENTIAL (PRIMARY) HYPERTENSION 10/22/2017 ORENDER DO, DAJA S Ot I65.23 OCCLUSION AND STENOSIS OF BILATERAL CHEN Procedures There is no data. Results There is no data. Encounters ACCT No. Visit Date/Time Discharge Status Pt. Type Provider Facility Loc./Unit Complaint [id number] 09/08/2017 09:00:00 09/08/2017 23:59:59 [facility] Outpatient TAWANDA DAJA S [facility] RAD CAROTID ARTERY STENOSIS [id number] 06/17/2017 10:26:00 06/17/2017 23:59:59 [facility] Outpatient ORENDER DO, DAJA S [facility] RAD POSTMENOPAUSAL OSTEOPOROSIS W/CURRENT L WRIST FRAC [id number] 05/27/2017 14:11:00 05/27/2017 23:59:59 CLS Outpatient ORENDER DO, DAJA S [facility] RAD BILAT BREAST CALCIFICATIONS [id number] 05/19/2017 14:43:00 05/19/2017 23:59:59 CLS Outpatient ORENDER DO, DAJA S [facility] RAD SCREENING Z12.31 [id number] 03/18/2017 19:47:00 03/18/2017 21:52:00 DIS Emergency JOSE ALFREDO LLOYD PROCESSING MANAGER [facility] ER FALL [id number] 03/10/2016 13:49:00 03/10/2016 23:59:59 CLS Outpatient JOEY KEEN ROOFER HELPER [facility] RAD SCREENING [id number] 03/07/2015 15:18:00 03/07/2015 23:59:59 CLS Outpatient ORENDER DO, DAJA S [facility] RAD [id number] 02/06/2015 15:36:00 02/06/2015 23:59:59 CLS Outpatient ORENDER DO, DAJA S [facility] RAD [id number] 11/09/2014 10:12:00 11/09/2014 23:59:59 CLS Outpatient ORENDER DO, DAJA S [facility] RAD [id number] 09/03/2014 09:44:00 09/03/2014 23:59:59 [id number] 08/29/2014 06:08:00 08/29/2014 23:59:59 CLS Outpatient MADELEINE STEELE MD [facility] PREOP [id number] 03/01/2014 10:05:00 03/01/2014 23:59:59 CLS Outpatient ORENDER DO, DAJA S [facility] RAD [id number] 08/28/2013 10:36:00 08/28/2013 14:00:00 DIS Outpatient MADELEINE STEELE MD [facility] [id number] 08/24/2013 07:11:00 08/24/2013 23:59:59 CLS Outpatient MADELEINE STEELE MD [facility] PREOP [id number] 07/27/2013 10:17:00 07/29/2013 14:21:00 DIS Outpatient MADELEINE STEELE MD [facility] [id number] 07/20/2013 21:58:00 07/21/2013 15:10:00 DIS Inpatient MEREDITH AGUILERA MD S [facility] SURGICAL [id number] 04/14/2013 14:56:00 04/18/2013 14:30:00 DIS Inpatient DAJA WILSON DO S [facility] SURGICAL [id number] 03/10/2016 13:49:00 Document Registration [id number] 12/22/2012 09:45:00 Document Registration [id number] 04/21/2012 10:00:00 Document Registration [id number] 10/30/2011 11:20:00 Document Registration [id number] 10/26/2011 10:58:00 Document Registration [id number] 03/25/2011 08:28:00 Document Registration [id number] 03/20/2011 13:36:00 Document Registration [id number] 10/30/2010 09:02:00 Document Registration [id number] 10/23/2010 09:04:00 Document Registration
== END 2017-11-13 23:20 | disposition home or self-care (01) ==
LOC: EDUNIT# 21:26 → ER 21:28
DX: S52.571A Other intraarticular fracture of lower end of right radius, initial encounter for closed fracture (principal); S52.201A Unspecified fracture of shaft of right ulna, initial encounter for closed fracture; D64.9 Anemia, unspecified; F41.9 Anxiety disorder, unspecified; F32.9 Major depressive disorder, single episode, unspecified; E03.9 Hypothyroidism, unspecified; E11.9 Type 2 diabetes mellitus without complications; Z90.710 Acquired absence of both cervix and uterus; Z90.89 Acquired absence of other organs; Z88.2 Allergy status to sulfonamides; Z88.5 Allergy status to narcotic agent; W00.0XXA Fall on same level due to ice and snow, initial encounter
CPT/HCPCS: 29125; 73090; 73110; 96372

== ENCOUNTER → 2017-12-02 | Outpatient (CLI) | payer MEDICARE ==
[~2017-12-02] MED LIST changes: +HYDR-87 PO
--- NOTE | 2017-12-02 14:33 | Diagnostic Imaging Report ---
INDICATION: Cough. TIME OF EXAM: 1:47 PM COMPARISON: Correlation is made with prior chest from 12/30/2009. FINDINGS: The heart size is stable. Pulmonary vascularity is normal. No infiltrate or effusion is detected. There is no pneumothorax identified. IMPRESSION: No acute cardiopulmonary processes detected. Dictated by: Dictated on workstation # [id number]
== END ==
LOC: RAD 13:20
PROVIDERS: ATTEND Family Medicine
DX: R05 Cough (principal)
CPT/HCPCS: 71046

== ENCOUNTER → 2018-06-08 | Outpatient (CLI) | payer MEDICARE ==
[~2018-06-08] MED LIST changes: +CHOL10007 PO; +CIPR500T4 PO; +CYAN250T PO; +HYDR-34 PO; +HYDR-4226 PO; -HYDR-757 PO; +LEVO100T7 PO; +LISI-552 PO; +LOSA100T8 PO; +METR500T21 PO
--- NOTE | 2018-06-08 16:33 | Diagnostic Imaging Report ---
INDICATION: Low back pain with left sciatica. EXAMINATION: Lumbar spine. FINDINGS: AP and lateral views of the lumbar spine show normal vertebral body height and alignment. There is mild spondylosis with small osteophytes forming anteriorly. There is no compression fracture or misalignment. IMPRESSION: Mild spondylosis deformans. No acute abnormality is seen. Dictated by: Dictated on workstation # [id number]
== END ==
LOC: RAD 15:01
PROVIDERS: ATTEND Family Medicine
DX: M47.816 Spondylosis without myelopathy or radiculopathy, lumbar region (principal); M54.42 Lumbago with sciatica, left side
CPT/HCPCS: 72100

== ENCOUNTER → 2018-06-13 | Outpatient (CLI) | payer MEDICARE ==
--- NOTE | 2018-06-13 17:39 | Diagnostic Imaging Report ---
INDICATION: Routine screening. COMPARISON: Comparison is made with prior mammogram from 05/19/2017 and 03/10/2016. TECHNIQUE: 2D and 3D bilateral screening mammography was performed with computer-aided detection (CAD) system. FINDINGS: Scattered fibroglandular densities are identified bilaterally. Large area of calcification in the medial retroareolar left breast is similar to prior exam and again an area of likely fat necrosis. Benign calcifications on the right are again noted. No new mass or malignant appearing microcalcifications are seen. Areas of nodularity bilaterally are stable. The axillae are unremarkable. IMPRESSION: No mammographic features suspicious for malignancy are identified. ACR BI-RADS Category 2: Benign findings. Result letter will be mailed to the patient. Note: At least 10% of breast cancer is not imaged by mammography. Dictated by: Dictated on workstation # [id number]
== END ==
LOC: RAD 15:08
PROVIDERS: ATTEND Family Medicine
DX: Z12.31 Encounter for screening mammogram for malignant neoplasm of breast (principal)
CPT/HCPCS: 77067

== ENCOUNTER 2018-06-25 19:30 | Inpatient (IN) | payer MEDICARE ==
[~2018-06-25] VITALS: Ht 157.5 cm; Wt 108.0 kg
[~2018-06-25 19:30] MED LIST changes: -CHOL10007 PO; -CIPR500T4 PO; -CYAN250T PO; -HYDR-34 PO; -LEVO100T7 PO; -LISI-552 PO; -LOSA100T8 PO; -METR500T21 PO
--- OUTSIDE RECORDS SUMMARY | 2018-06-25 19:35 | XMS REPORT | Clinical Summary ---
Author Author [facility] Organization [facility] Address Unknown Phone Unavailable Care Team Providers Care Television Receiver Analyzer Name Role Phone Gabriella Manriquez MD PCP Jennifer Rizo PA-C Unavailable Source Comments Some departments are not documenting in the electronic medical record. If you do not see the information that you expected, contact Release of Information in the Health Information Management department at [phone] for further assistance in locating additional records.[facility] Allergies Active Allergy Reactions Severity Noted [...] today since she was driving up from [place], [place], and didn't want to take a [...] SCREENING 1986 COLORECTAL CANCER 1996 SCREENING SHINGLES RECOMBINANT 1996 VACCINE (1 of 2) OSTEOPOROSIS SCREENING 2011 PNEUMONIA (PCV13/PPSV23) 2011 VACCINES (1 of 2 - PCV13) INFLUENZA VACCINE 07/04/2018 Results Not on filefrom Last 3 Months
--- OUTSIDE RECORDS SUMMARY | 2018-06-25 19:37 | XMS REPORT | Continuity of Care Document ---
Author Author [facility] Organization [facility] Address Unknown Phone Unavailable Allergies Active Description Code Type Severity Reaction Onset Reported/Identified Relationship to Patient Clinical Status Yes Sulfa (Sulfonamide Antibiotics) [id number] Drug Allergy Unknown N/A 2006 Yes morphine [id number] Drug Allergy Moderate RED RASH WITH H 11/13/2017 Medications There is no data. Problems Date Dx Coded Attending Type Code Diagnosis Diagnosed By 03/25/2011 Ot 719.41 JOINT PAIN- LDER 03/25/2011 Ot 719.61 JOINT SYMPTOM NEC-LDER 03/25/2011 Ot V57.1 PHYSICAL THERAPY NEC 04/18/2013 IVÁN WILSON DOQUELINE S Ot 244.9 04/18/2013 SELAMNDLETTY DO, GABRIELLA S Ot 266.2 04/18/2013 SELAMNDER DO, GABRIELLA S Ot 272.4 04/18/2013 SELAMNDER DO, GABRIELLA S Ot 277.7 04/18/2013 SELAMNDER DO, GABRIELLA S Ot 300.00 04/18/2013 SELAMNDER DO, GABRIELLA S Ot 311 04/18/2013 SELAMNDER DO, GABRIELLA S Ot 401.9 04/18/2013 SELAMNDER DO, GABRIELLA S Ot 412 04/18/2013 SELAMNDER DO, GABRIELLA S Ot 530.81 04/18/2013 SELAMNDER DO, GABRIELLA S Ot 558.9 04/18/2013 SELAMNDER DO, GABRIELLA S Ot 562.10 04/18/2013 SELAMNDER DO, GABRIELLA S Ot 715.90 04/18/2013 SELAMNDER DO, GABRIELLA S Ot 780.52 07/21/2013 WILLY OSCAR, MEREDITH [...] CEDRIC OSCAR, MADELEINE M Ot V72.84 09/03/2014 GABRIELLA WILSON DO S Ot V76.12 09/03/2014 CEDRIC OSCAR, MADELEINE M Ot V72.84 09/04/2014 CEDRIC OSCAR, MADELEINE Conn Ot 562.10 09/04/2014 CEDRIC OSCAR, MADELEINE Conn Ot V12.72 09/04/2014 CEDRIC OSCAR, MADELEINE Conn Ot V67.09 09/05/2014 CEDRIC OSCAR, MADELEINE Conn Ot 562.10 09/05/2014 CEDRIC OSCAR, MADELEINE M Ot V12.72 09/05/2014 CEDRIC OSCAR, MADELEINE [...] MADELEINE M Ot V72.84 11/08/2014 SELAMNDLETTY FERNANDEZ, GABRIELLA S Ot V76.12 11/08/2014 CEDRIC OSCAR, MADELEINE M Ot V72.84 11/08/2014 CEDRIC OSCAR, MADELEINE M Ot 562.10 11/08/2014 CEDRIC OSCAR, MADELEINE M Ot V12.72 11/08/2014 CEDRIC OSCAR, MADELEINE M Ot V67.09 11/12/2014 STEVE FERNANDEZ GABRIELLA S Ot 433.10 11/12/2014 Ot V76.12 11/12/2014 CEDRIC OSCAR, MADELEINE M Ot V72.84 11/12/2014 STEVE FERNANDEZ GABRILELA S Ot V76.12 11/12/2014 CEDRIC OSCAR, MADELEINE M Ot V72.84 11/12/2014 CEDRIC OSCAR, MADELEINE M Ot 562.10 11/12/2014 CEDRIC OSCAR, MADELEINE M Ot V12.72 11/12/2014 CEDRIC OSCAR, MADELEINE M Ot V67.09 11/12/2014 STEVE FERNANDEZ, GABRIELLA S Ot 433.10 11/22/2014 SELAMNDER , GABRIELLA S Ot 433.10 02/06/2015 Ot V76.12 02/06/2015 CEDRIC OSCAR, MADELEINE M Ot V72.84 02/06/2015 IVÁN WILSON DOQUELINE S Ot V76.12 02/06/2015 CEDRIC OSCAR, MADELEINE M Ot V72.84 02/06/2015 CEDRIC OSCAR, MADELEINE M Ot 562.10 02/06/2015 CEDRIC OSCAR, MADELEINE M Ot V12.72 02/06/2015 CEDRIC OSCAR, MADELEINE M Ot V67.09 02/06/2015 SELAMNDER DO, GABRIELLA S Ot 433.10 03/20/2015 SELAMNDER DO, GABRIELLA S Ot 719.47 03/26/2015 SELAMNDER DO, GABRIELLA S Ot V76.12 06/13/2015 Ot V76.12 06/13/2015 CEDRIC OSCAR, MADELEINE Conn Ot V72.84 06/13/2015 ORENDER DO, GABRIELLA S Ot V76.12 06/13/2015 CEDRIC OSCAR, MADELEINE Conn Ot V72.84 06/13/2015 CEDRIC OSCAR, MADELEINE Conn Ot 562.10 06/13/2015 CEDRIC OSCAR, MADELEINE Conn Ot V12.72 06/13/2015 CEDRIC OSCAR, MADELEINE Conn Ot V67.09 06/13/2015 SELAMNDER DO, GABRIELLA S Ot 433.10 06/13/2015 SELAMNDER DO, GABRIELLA S Ot 719.47 06/13/2015 SELAMNDER DO, GABRIELLA S Ot V76.12 03/10/2016 Ot 433.10 CAROTID [...] 03/10/2016 Ot 787.20 DYSPHAGIA, UNSPECIFIED 03/12/2016 JOEY EKEN Ot Z12.31 ENCNTR SCREEN MAMMOGRAM FOR MALIGNANT NE 03/31/2016 JOEY KEEN Ot Z12.31 ENCNTR SCREEN MAMMOGRAM FOR MALIGNANT NE 03/18/2017 JOSE ALFREDO LLOYD MATERIALS PLANNING ANALYST Ot R04.0 EPISTAXIS 03/18/2017 JOSE ALFREDO LLOYD MATERIALS PLANNING ANALYST Ot S02.2XXA FRACTURE OF NASAL BONES, INIT ENCNTR FOR 03/18/2017 JOSE ALFREDO LLOYD MATERIALS PLANNING ANALYST Ot S09.90XA UNSPECIFIED INJURY OF HEAD, INITIAL ENCO 03/18/2017 JOSE ALFREDO LLOYD MATERIALS PLANNING ANALYST Ot S62.91XA UNSP FRACTURE OF RIGHT WRIST AND HAND, I 03/18/2017 JOSE ALFREDO LLOYD MATERIALS PLANNING ANALYST Ot W01.198A FALL SAME LEV FROM SLIP/TRIP W STRIKE AG 03/18/2017 Ot V76.12 OTH SCREEN MAMMO-MALIGN NEOPLASM OF PJ 03/18/2017 Ot 722.91 DISC DIS NEC /NOS-CERV 03/18/2017 Ot 787.20 DYSPHAGIA, UNSPECIFIED 03/18/2017 JOEY KEEN TRANSMISSION TECHNICIAN Ot Z12.31 ENCNTR SCREEN MAMMOGRAM FOR MALIGNANT NE 05/11/2017 ORENDER DO, GABRIELLA S Ot Z12.31 ENCNTR SCREEN MAMMOGRAM FOR MALIGNANT NE 05/11/2017 Ot 787.20 DYSPHAGIA, UNSPECIFIED 05/11/2017 JOEY KEEN TRANSMISSION TECHNICIAN Ot Z12.31 ENCNTR SCREEN MAMMOGRAM FOR MALIGNANT NE 05/11/2017 ORENDER DO, GABRIELLA S Ot Z12.31 ENCNTR SCREEN MAMMOGRAM FOR MALIGNANT NE 05/17/2017 ORENDER DO, GABRIELLA S Ot Z12.31 ENCNTR SCREEN MAMMOGRAM FOR MALIGNANT NE 05/19/2017 Ot 787.20 DYSPHAGIA, UNSPECIFIED 05/19/2017 JOEY KEEN TRANSMISSION TECHNICIAN Ot Z12.31 ENCNTR SCREEN MAMMOGRAM FOR MALIGNANT NE 05/19/2017 ORENDER DO, GABRIELLA S Ot Z12.31 ENCNTR SCREEN MAMMOGRAM FOR MALIGNANT NE 05/27/2017 ORENDER DO, GABRIELLA S Ot R92.8 OTH ABN AND INCONCLUSIVE FINDINGS ON DX 05/27/2017 ORENDER DO, GABRIELLA S Ot Z12.31 ENCNTR SCREEN MAMMOGRAM FOR MALIGNANT NE 05/27/2017 ORENDER DO, GABRIELLA S Ot R92.1 MAMMOGRAPHIC CALCIFCN FOUND ON DIAGNOSTI 06/02/2017 ORENDER DO, GABRIELLA S Ot M80.032G AGE-REL OSTEOPOR W CRNT PATH FX, L FOREA 06/15/2017 ORENDER DO, GABRIELLA S Ot R92.8 OTH ABN AND INCONCLUSIVE FINDINGS ON DX 06/15/2017 SELAMNDGABRIELLA SAENZ DO Ot Z12.31 ENCNTR SCREEN MAMMOGRAM FOR MALIGNANT NE 06/15/2017 SELAMNDER DO, GABRIELLA S Ot M81.0 AGE-RELATED OSTEOPOROSIS W/O CURRENT PAT 06/16/2017 ORENDER DO, GABRIELLA S Ot M81.0 AGE-RELATED OSTEOPOROSIS W/O CURRENT PAT 06/17/2017 ORENDER DO, GABRIELLA S Ot M81.0 AGE-RELATED OSTEOPOROSIS W/O CURRENT PAT 06/18/2017 ORENDER DO, GABRIELLA S Ot M81.0 AGE-RELATED OSTEOPOROSIS W/O CURRENT PAT 06/18/2017 ORENDER DO, GABRIELLA S Ot R92.1 MAMMOGRAPHIC CALCIFCN FOUND ON DIAGNOSTI 06/23/2017 SELAMNDER DO, GABRIELLA S Ot M81.0 AGE-RELATED OSTEOPOROSIS W/O CURRENT PAT 06/24/2017 SELAMNDER DO, GABRIELLA S Ot R92.1 MAMMOGRAPHIC CALCIFCN FOUND ON DIAGNOSTI 07/08/2017 SELAMNDER DO, GABRIELLA S Ot M81.0 AGE-RELATED OSTEOPOROSIS W/O CURRENT PAT 09/03/2017 SELAMNDER DO, GABRIELLA S Ot I65.29 OCCLUSION AND STENOSIS OF UNSPECIFIED CA 09/03/2017 ORENDER DO, GABRIELLA S Ot I65.29 OCCLUSION AND STENOSIS OF UNSPECIFIED CA 09/29/2017 ORENDER DO, GABRIELLA S Ot I10 ESSENTIAL (PRIMARY) HYPERTENSION 09/29/2017 ORENDER DO, GABRIELLA S Ot I65.29 OCCLUSION AND STENOSIS OF UNSPECIFIED CA 10/22/2017 ORENDER DO, GABRIELLA S Ot I10 ESSENTIAL (PRIMARY) HYPERTENSION 10/22/2017 ORENDER DO, GABRIELLA S Ot I65.23 OCCLUSION AND STENOSIS OF BILATERAL CHEN 11/13/2017 YIMI DO, FILIBERTO K Ot D64.9 ANEMIA, UNSPECIFIED 11/13/2017 YIMI DO, FILIBERTO K Ot E03.9 HYPOTHYROIDISM, UNSPECIFIED 11/13/2017 YIMI DO, FILIBERTO K Ot E11.9 TYPE 2 DIABETES MELLITUS WITHOUT COMPLIC 11/13/2017 YIMI DO FILIBERTO K Ot F32.9 MAJOR DEPRESSIVE DISORDER, SINGLE EPISOD 11/13/2017 YIMI , FILIBERTO Elizabeth Ot F41.9 ANXIETY DISORDER, UNSPECIFIED 11/13/2017 [facility] FILIBERTO Elizabeth Ot M25.531 PAIN IN RIGHT WRIST 11/13/2017 [facility] FILIBERTO Elizabeth Ot S52.201A UNSP FRACTURE OF SHAFT OF RIGHT ULNA, IN 11/13/2017 [facility] FILIBERTO Elizabeth Ot S52.571A OTH INTARTIC FRACTURE OF LOWER END OF RI 11/13/2017 [place] FILIBERTO K Ot W00.0XXA FALL ON SAME LEVEL DUE TO ICE AND SNOW, 11/13/2017 [facility] FILIBERTO K Ot Z88.2 ALLERGY STATUS TO SULFONAMIDES STATUS 11/13/2017 [facility] FILIBERTO K Ot Z88.5 ALLERGY STATUS TO NARCOTIC AGENT STATUS 11/13/2017 [facility] Ot Z90.710 ACQUIRED ABSENCE OF BOTH CERVIX AND UTER 11/13/2017 [facility] Ot Z90.89 ACQUIRED ABSENCE OF OTHER ORGANS 11/15/2017 [facility] FILIBERTO K Ot D64.9 ANEMIA, UNSPECIFIED 11/15/2017 [facility] FILIBERTO Elizabeth Ot E03.9 HYPOTHYROIDISM, UNSPECIFIED 11/15/2017 [facility] FILBIERTO Elizabeth Ot E11.9 TYPE 2 DIABETES MELLITUS WITHOUT COMPLIC 11/15/2017 [facility] FILIBERTO K Ot F32.9 MAJOR DEPRESSIVE DISORDER, SINGLE EPISOD 11/15/2017 [place] FILIBERTO Elizabeth Ot F41.9 ANXIETY DISORDER, UNSPECIFIED 11/15/2017 [facility] FILIBERTO Elizabeth Ot M25.531 PAIN IN RIGHT WRIST 11/15/2017 [facility] FILIBERTO Elizabeth Ot S52.201A UNSP FRACTURE OF SHAFT OF RIGHT ULNA, IN 11/15/2017 [facility] FILIBERTO K Ot S52.571A OTH INTARTIC FRACTURE OF LOWER END OF RI 11/15/2017 [place] FILIBERTO K Ot W00.0XXA FALL ON SAME LEVEL DUE TO ICE AND SNOW, 11/15/2017 YIMI DO FILIBERTO K Ot Z88.2 ALLERGY STATUS TO SULFONAMIDES STATUS 11/15/2017 [facility] Z88.5 ALLERGY STATUS TO NARCOTIC AGENT STATUS 11/15/2017 [facility], FILIBERTO K Ot Z90.710 ACQUIRED ABSENCE OF BOTH CERVIX AND UTER 11/15/2017 FILIBERTO GELLER DO Ot Z90.89 ACQUIRED ABSENCE OF OTHER ORGANS 11/17/2017 GABRIELLA WILSON DO S Ot I10 ESSENTIAL (PRIMARY) HYPERTENSION 11/17/2017 LONG WILSON DOLINE S Ot I65.23 OCCLUSION AND STENOSIS OF BILATERAL CHEN 12/06/2017 SELAMND LONG FERNANDEZLINE S Ot R05 COUGH 12/24/2017 SELAMND , GABREILLA S Ot R05 COUGH 12/29/2017 SELAMNDER , GABRIELLA S Ot R05 COUGH 06/08/2018 JOEY KEEN M TRANSMISSION TECHNICIAN Ot Z12.31 ENCNTR SCREEN MAMMOGRAM FOR MALIGNANT NE 06/08/2018 GABRIELLA WILSON DO Ot R92.8 OTH ABN AND INCONCLUSIVE FINDINGS ON DX 06/08/2018 GABRIELLA WILSON DO S Ot Z12.31 ENCNTR SCREEN MAMMOGRAM FOR MALIGNANT NE 06/08/2018 GABRIELLA WILSON DO S Ot R92.1 MAMMOGRAPHIC CALCIFCN FOUND ON DIAGNOSTI 06/08/2018 GABRIELLA WILSON DO S Ot M81.0 AGE-RELATED OSTEOPOROSIS W/O CURRENT PAT 06/08/2018 GABRIELLA WILSON DO S Ot I10 ESSENTIAL (PRIMARY) HYPERTENSION 06/08/2018 GABRIELLA WILSON DO S Ot I65.23 OCCLUSION AND STENOSIS OF BILATERAL CHEN 06/08/2018 LONG WILSON DOLINE S Ot R05 COUGH 06/08/2018 SELAMND LONG FERNANDEZLINE S Ot Z12.31 ENCNTR SCREEN MAMMOGRAM FOR MALIGNANT NE 06/14/2018 LONG WILSON DOLINE S Ot Z12.31 ENCNTR SCREEN MAMMOGRAM FOR MALIGNANT NE Procedures There is no data. Results There is no data. Encounters ACCT No. Visit Date/Time Discharge Status Pt. Type Provider Facility Loc./Unit Complaint [id number] 06/13/2018 15:08:00 06/13/2018 23:59:59 CLS Outpatient GABRIELLA WILSON DO [facility] RAD SCREENING [id number] 06/08/2018 15:01:00 06/08/2018 23:59:59 CLS Outpatient STEVE FERNANDEZ, GABRIELLA S [facility] RAD LOW BACK PAIN [id number] 12/02/2017 13:20:00 12/02/2017 23:59:59 CLS Outpatient STEVE FERNANDEZ, GABRIELLA S [facility] RAD COUGH [id number] 11/13/2017 21:28:00 11/13/2017 23:20:00 DIS Emergency FILIBERTO GELLER DO [facility] ER FELL ON ICE,POSS BROKEN R ARM [id number] 09/08/2017 09:00:00 09/08/2017 23:59:59 CLS Outpatient STVEE FERNANDEZ GABRIELLA S [facility] RAD CAROTID ARTERY STENOSIS [id number] 06/17/2017 10:26:00 06/17/2017 23:59:59 CLS Outpatient STEVE DO GABRIELLA S [facility] RAD POSTMENOPAUSAL OSTEOPOROSIS W/CURRENT L WRIST FRAC [id number] 05/27/2017 14:11:00 05/27/2017 23:59:59 CLS Outpatient STEVE FERNANDEZ GABRIELLA S [facility] RAD BILAT BREAST CALCIFICATIONS [id number] 05/19/2017 14:43:00 05/19/2017 23:59:59 CLS Outpatient STEVE FERNANDEZ GABRIELLA S [facility] RAD SCREENING Z12.31 [id number] 03/18/2017 19:47:00 03/18/2017 21:52:00 DIS Emergency JOSE ALFREDO LLOYD MATERIALS PLANNING ANALYST [facility] ER FALL [id number] 03/10/2016 13:49:00 03/10/2016 23:59:59 CLS Outpatient JOEY KEEN TRANSMISSION TECHNICIAN [facility] RAD SCREENING [id number] 03/07/2015 15:18:00 03/07/2015 23:59:59 CLS Outpatient SELAMNDER DO, GABRIELLA S [facility] RAD [id number] 02/06/2015 15:36:00 02/06/2015 23:59:59 CLS Outpatient SELAMNDER DO GABRIELLA S [facility] RAD [id number] 11/09/2014 10:12:00 11/09/2014 23:59:59 CLS Outpatient ORENDER DOLONGGABRIELLA S [facility] RAD [id number] 09/03/2014 09:44:00 09/03/2014 23:59:59 CLS Outpatient MADELEINE STEELE MD [facility] [id number] 08/29/2014 06:08:00 08/29/2014 23:59:59 CLS Outpatient MADELEINE STEELE MD [facility] PREOP [id number] 03/01/2014 10:05:00 03/01/2014 23:59:59 CLS Outpatient ORENDER DOIVÁNGABRIELLA S [facility] RAD [id number] 08/28/2013 10:36:00 08/28/2013 14:00:00 DIS Outpatient MADELEINE STEELE MD [facility] [id number] 08/24/2013 07:11:00 08/24/2013 23:59:59 CLS Outpatient MADELEINE STEELE MD [facility] PREOP [id number] 07/27/2013 10:17:00 07/29/2013 14:21:00 DIS Outpatient MADELEINE STEELE MD [facility] [id number] 07/20/2013 21:58:00 07/21/2013 15:10:00 DIS Inpatient MEREDITH AGUILERA MD [facility] SURGICAL [id number] 04/14/2013 14:56:00 04/18/2013 14:30:00 DIS Inpatient SELAMNDER DOLONGGABRIELLA S [facility] SURGICAL [id number] 06/25/2018 19:31:00 ACT Emergency VALENTÍN JOE MD [facility] ER ABD PAIN [id number] 03/10/2016 13:49:00 Document Registration [id number] 12/22/2012 09:45:00 Document Registration [id number] 04/21/2012 10:00:00 Document Registration [id number] 10/30/2011 11:20:00 Document Registration [id number] 10/26/2011 10:58:00 Document Registration [id number] 03/25/2011 08:28:00 Document Registration [id number] 03/20/2011 13:36:00 Document Registration [id number] 10/30/2010 09:02:00 Document Registration [id number] 10/23/2010 09:04:00 Document Registration [email or web address] 03/08/2015 05:29:32 ACT Document Registration 06/27/16 06/13/2018 11:48:42 06/13/2018 23:59:59 [facility] Gabriella Cotto
[2018-06-25 20:03] LABS: BASOPHILS % (AUTO) 0 % (0-10); EOSINOPHILS # (AUTO) 0.1 10^3/uL (0.0-0.3); EOSINOPHILS % (AUTO) 1 % (0-10); HEMATOCRIT 43 % (35-52); HEMOGLOBIN 14.9 G/DL (11.5-16.0); LYMPHOCYTES # (AUTO) 2.2 X 10^3 (1.0-4.0); LYMPHOCYTES % (AUTO) 17 % (12-44); MEAN CORPUSCULAR HEMOGLOBIN 32 PG (25-34); MEAN CORPUSCULAR HGB CONC 35 G/DL (32-36); MEAN CORPUSCULAR VOLUME 90 FL (80-99); MEAN PLATELET VOLUME 10.9 FL (7.4-10.4); MONOCYTES # (AUTO) 0.9 X 10^3 (0.0-1.0); MONOCYTES % (AUTO) 7 % (0-12); NEUTROPHILS # (AUTO) 9.3 X 10^3 (1.8-7.8); NEUTROPHILS % (AUTO) 75 % (42-75); PLATELET COUNT 326 10^3/uL (130-400); RED BLOOD COUNT 4.73 10^6/uL (4.35-5.85); RED CELL DISTRIBUTION WIDTH 13.4 % (10.0-14.5); WHITE BLOOD COUNT 12.5 10^3/uL (4.3-11.0)
[2018-06-25 20:04] LABS: BILIRUBIN,URINE NEGATIVE (NEGATIVE); CLARITY,URINE SLIGHTLY CLOUDY; COLOR,URINE YELLOW; GLUCOSE, URINE (UA) NEGATIVE (NEGATIVE); KETONES,URINE 2+ (NEGATIVE); LEUKOCYTE ESTERASE ,URINE NEGATIVE (NEGATIVE); NITRITE,URINE NEGATIVE (NEGATIVE); PH,URINE 7 (5-9); PROTEIN,URINE NEGATIVE (NEGATIVE); UROBILINOGEN,URINE NORMAL (NORMAL)
--- NOTE | 2018-06-25 20:08 | ED Abdominal Pain ---
General Chief Complaint: Abdominal/GI Problems Stated Complaint: ABD PAIN Nursing Triage Note: ABDOMINAL PAIN SINCE LAST WEEKEND. PT HAS HAD HERNIA REPAIR SURGERY AND IS CONCERNED THAT "HER INSIDES ARE BEING PULLED APART BY THE TRACTION TABLE AT PHYSICAL THERAPY." PT ALSO STATES THAT SHE IS UNDER A LOT OF STRESS AT HOME. Sepsis Screen: No Definite Risk Source of Information: Patient Exam Limitations: No Limitations History of Present Illness Date Seen by Provider: Jun 25, 2018 Time Seen by Provider: 20:05 Initial Comments To ER per private vehicle with reports of abdominal pain. This is been intermittent for about 2 weeks but constant since yesterday. She reports intermittent bouts of diarrhea area of the pain is crampy and upper abdominal in location. She has nausea and vomiting. She had vomiting 2 weeks ago but none today. History of open cholecystectomy many years ago and ventral hernia repair Timing/Duration: Getting Worse, Intermittent Severity/Quality: Moderate Location: Generalized Abdomen Radiation: No Radiation Associated Symptoms: Nausea/Vomiting Allergies and Home Medications Allergies Coded Allergies: morphine (Unverified Allergy, Intermediate, RED RASH WITH HIVES, 11/13/17) Sulfa (Sulfonamide Antibiotics) (Verified Allergy, Unknown, 11/03/06) Home Medications Amoxicillin 500 Mg Capsule, 500 MG PO TID Prescribed by: JOSE ALFREDO LLOYD on 03/18/172120 Bupropion Hcl 150 Mg Tablet, 1 TAB PO DAILY, (Reported) Cholecalciferol 1,000 Unit Tablet, 1,000 UNIT PO DAILY, (Reported) Cyanocobalamin 1,000 Mcg Tablet.sa, 1,000 MCG PO DAILY, (Reported) Esomeprazole Mag Trihydrate 40 Mg Capsule.dr, 40 MG PO DAILY, (Reported) Hydrocodone/Acetaminophen 1 Each Tablet, 1 EACH PO Q4H PRN for PAIN-MODERATE TO SEVERE Prescribed by: JOSE ALFREDO LLOYD on 03/18/172116 Hydrocodone/Ibuprofen 1 Each Tablet, 1-2 EACH PO Q4H Prescribed by: FILIBERTO GELLER on 11/13/172224 Levothyroxine Sodium 100 Mcg Tablet, 100 MCG PO DAILY, (Reported) Lisinopril/Hydrochlorothiazide 1 Each Tablet, 1 TAB PO DAILY, (Reported) Multivitamin 1 Each Tablet, 1 EACH PO DAILY, (Reported) Patient Home Medication List Home Medication List Reviewed: Yes Review of Systems Review of Systems Constitutional: see HPI EENTM: No Symptoms Reported Respiratory: No Symptoms Reported Gastrointestinal: See HPI, Abdominal Pain, Diarrhea, Nausea, Vomiting Genitourinary: No Symptoms Reported Musculoskeletal: no symptoms reported Skin: no symptoms reported Psychiatric/Neurological: No Symptoms Reported Endocrine: No Symptoms Reported Hematologic/Lymphatic: No Symptoms Reported Past Mkxvzsm-Nlwdzf-Xgeraf Hx Patient Social History Alcohol Use: Denies Use Recreational Drug Use: No Recent Foreign Travel: No Contact w/Someone Who Travel: No Recent Infectious Disease Expo: No Recent Hopitalizations: No Physical Abuse: No Sexual Abuse: No Immunizations Up To Date Tetanus Booster (TDap): Unknown PED Vaccines UTD: Yes Date of Pneumonia Vaccine: Jul 04, 2009 Date of Influenza Vaccine: Jul 17, 2014 Seasonal Allergies Seasonal Allergies: Yes Past Medical History Surgeries: Yes Abdominal, Gallbladder, Hysterectomy, Oophorectomy, Orthopedic, Thyroidectomy, Tonsillectomy Respiratory: No Cardiac: Yes (CAROTID DISEASE) Hypertension Neurological: No Reproductive Disorders: No (HYSTERECTOMY) Female Reproductive Disorders: Denies CLIENT REPRESENTATIVE History: Hysterectomy, Menopausal Sexually Transmitted Disease: No HIV/AIDS: No Genitourinary: No Gastrointestinal: Yes Abdominal Hernia, Colitis, Gastroesophageal Reflux, Gastrointestinal Bleed, Polyps, Hiatal Hernia Musculoskeletal: Yes (L ANKLE FX/ORIF; LEFT WRIST FX/ORIF) Degenerate Disk Disease, Osteoporosis, Fibromyalgia, Chronic Back Pain, Fractures Endocrine: Yes Hypothyroidsim, Diabetes, Non-Insulin dep HEENT: Yes Cataract Cancer: No Psychosocial: Yes Sleep Difficulties, Anxiety, Depression Integumentary: Yes (ADULT ACNE) Blood Disorders: Yes (ANEMIA, B12 DEFICIENCY) Adverse Reaction/Blood Tranf: No Family Medical History No Pertinent Family Hx Physical Exam Vital Signs Vital Signs - First Documented 06/25/18 19:39 Temp 98.0 Pulse 94 Resp 16 B/P (MAP) 153/74 (100) Pulse Ox 98 Capillary Refill : Less Than 3 Seconds Height/Weight/BMI Height: 5'2.00" Weight: 230lbs. oz. 104.598735dm; 42.98 BMI Method:Stated General Appearance: WD/WN, mild distress HEENT: PERRL/EOMI, normal ENT inspection Neck: non-tender, full range of motion Respiratory: no respiratory distress, no accessory muscle use Cardiovascular: regular rate, rhythm, no murmur Gastrointestinal: soft, abnormal bowel sounds (hypoactive), tenderness Extremities: normal range of motion, non-tender Neurologic/Psychiatric: alert, normal mood/affect, oriented x 3 Progress/Results/Core Measures Results/Orders Lab Results Laboratory Tests Test 06/25/18 19:45 06/25/18 19:51 Range/Units Urine Color YELLOW Urine Clarity SLIGHTLY CLOUDY Urine pH 7 5-9 Urine Specific [place] 1.010 L 1.016-1.022 Urine Protein NEGATIVE NEGATIVE Urine Glucose (UA) NEGATIVE NEGATIVE Urine Ketones 2+ H NEGATIVE Urine Nitrite NEGATIVE NEGATIVE Urine Bilirubin NEGATIVE NEGATIVE Urine Urobilinogen NORMAL NORMAL MG/DL Urine Leukocyte Esterase NEGATIVE NEGATIVE Urine RBC (Auto) NEGATIVE NEGATIVE Urine RBC NONE /HPF Urine WBC 0-2 /HPF Urine Squamous Epithelial Cells 10-25 H /HPF Urine Renal Epithelial Cells NONE /HPF Urine Crystals NONE /LPF Urine Bacteria TRACE /HPF Urine Casts NONE /LPF Urine Mucus SMALL H /LPF Urine Culture Indicated NO White Blood Count 12.5 H 4.3-11.0 10^3/uL Red Blood Count 4.73 4.35-5.85 10^6/uL Hemoglobin 14.9 11.5-16.0 G/DL Hematocrit 43 35-52 % Mean Corpuscular Volume 90 80-99 FL Mean Corpuscular Hemoglobin 32 25-34 PG Mean Corpuscular Hemoglobin Concent 35 32-36 G/DL Red Cell Distribution Width 13.4 10.0-14.5 % Platelet Count 326 130-400 10^3/uL Mean Platelet Volume 10.9 H 7.4-10.4 FL Neutrophils (%) (Auto) 75 42-75 % Lymphocytes (%) (Auto) 17 12-44 % Monocytes (%) (Auto) 7 0-12 % Eosinophils (%) (Auto) 1 0-10 % Basophils (%) (Auto) 0 0-10 % Neutrophils # (Auto) 9.3 H 1.8-7.8 X 10^3 Lymphocytes # (Auto) 2.2 1.0-4.0 X 10^3 Monocytes # (Auto) 0.9 0.0-1.0 X 10^3 Eosinophils # (Auto) 0.1 0.0-0.3 10^3/uL Basophils # (Auto) 0.0 0.0-0.1 10^3/uL Sodium Level 140 135-145 MMOL/L Potassium Level 3.8 3.6-5.0 MMOL/L Chloride Level 106 98-107 MMOL/L Carbon Dioxide Level 22 21-32 MMOL/L Anion Gap 12 5-14 MMOL/L Blood Urea Nitrogen 12 7-18 MG/DL Creatinine 0.74 0.60-1.30 MG/DL Estimat Glomerular Filtration Rate > 60 BUN/Creatinine Ratio 16 Glucose Level 103 70-105 MG/DL Calcium Level 10.0 8.5-10.1 MG/DL Corrected Calcium 9.7 8.5-10.1 MG/DL Total Bilirubin 0.4 0.1-1.0 MG/DL Aspartate Amino Transf (AST/SGOT) 18 5-34 U/L Alanine Aminotransferase (ALT/SGPT) 15 0-55 U/L Alkaline Phosphatase 91 40-136 U/L Troponin I < 0.30 <0.30 NG/ML Total Protein 8.0 6.4-8.2 GM/DL Albumin 4.4 3.2-4.5 GM/DL Lipase 22 8-78 U/L My Orders Orders - JOSE ALFREDO LLOYD APRN Cbc With Automated Diff (06/25/18 19:56) Comprehensive Metabolic Panel (06/25/18 19:56) Lipase (06/25/18 19:56) Ua Culture If Indicated (06/25/18 19:56) Iv Heplock-Insert (Order) (06/25/18 19:56) Troponin I (06/25/18 19:56) Ekg Tracing (06/25/18 19:56) Ct Abd/Pelv W (Appendicitis) (06/25/18 20:04) Fentanyl Injection (Sublimaze Injection (06/25/18 20:15) Ondansetron Injection (Zofran Injectio (06/25/18 20:15) Iohexol Injection (Omnipaque 350 Mg/Ml 1 (06/25/18 20:30) Ns (Ivpb) (Sodium Chloride 0.9%) (06/25/18 20:30) Promethazine Injection (Phenergan Injec (06/25/18 21:15) Benzocaine Extension Tube (Hurricaine Ex (06/25/18 21:05) Medications Given in ED Current Medications Medications Dose Ordered Sig/Barber Route Start Time Stop Time Status Last Admin Dose Admin Benzocaine 1 ea STK-MED ONCE .ROUTE 06/25/18 21:05 06/25/18 21:09 DC 06/25/18 21:19 1 EA Fentanyl Citrate 50 mcg ONCE ONCE IVP 06/25/18 20:15 06/25/18 20:16 DC 06/25/18 20:15 50 MCG Iohexol 100 ml ONCE ONCE IV 06/25/18 20:30 06/25/18 20:31 UNV 06/25/18 20:30 100 ML Ondansetron HCl 8 mg ONCE ONCE IVP 06/25/18 20:15 06/25/18 20:16 DC 06/25/18 20:15 8 MG Promethazine HCl 12.5 mg ONCE ONCE IVP 06/25/18 21:15 06/25/18 21:16 DC 06/25/18 21:19 12.5 MG Sodium Chloride 250 ml ONCE ONCE IV 06/25/18 20:30 06/25/18 20:31 UNV 06/25/18 20:30 80 ML Vital Signs/I&O 06/25/18 19:39 Temp 98.0 Pulse 94 Resp 16 B/P (MAP) 153/74 (100) Pulse Ox 98 Blood Pressure Mean: 100 Departure Communication (Admissions) Time/Spoke to Admitting Phy: 21:[address] Grace who is on-call for surgery. We'll admit with nasogastric tube to low and minimal suction, IV fluids, pain medication nausea medication Cipro Flagyl. 2126 I did insert a 16 Syriac nasogastric tube through the left nares. Placement to be confirmed by chest x-ray. Impression Primary Impression: Small bowel obstruction Additional Impression: Umbilical hernia Disposition: ADMITTED INPATIENT Condition: Stable Admissions Decision to Admit Reason: Admit from ER (General) Decision to Admit/Date: Jun 25, 2018 Time/Decision to Admit Time: 21:28 Departure-Patient Inst. Referrals: DAJA WILSON DO (PCP/Family) Primary Care Physician JOSE ALFREDO LLOYD APRN Jun 25, 2018 20:08
[2018-06-25] MEDS ORDERED: fentaNYL INJECTION 100 MCG/2 ML AMP IVP ONE (20:15)
[2018-06-25] MEDS ORDERED: ONDANSETRON 4 MG/2 ML (SDV) Z0FRAN IVP ONE (20:15)
[2018-06-25 20:20] LABS: ALANINE AMINOTRANSFERASE 15 U/L (0-55); ALBUMIN 4.4 GM/DL (3.2-4.5); ALKALINE PHOSPHATASE 91 U/L (40-136); BILIRUBIN,TOTAL 0.4 MG/DL (0.1-1.0); BUN/CREATININE RATIO 16; CARBON DIOXIDE 22 MMOL/L (21-32); CHLORIDE 106 MMOL/L (98-107); CREATININE SERUM 0.74 MG/DL (0.60-1.30); GFR ESTIMATED > 60; GLUCOSE 103 MG/DL (70-105); LIPASE 22 U/L (8-78); POTASSIUM 3.8 MMOL/L (3.6-5.0); SODIUM 140 MMOL/L (135-145)
[2018-06-25 20:21] LABS: BACTERIA,URINE TRACE /HPF; WBC,URINE 0-2 /HPF
[2018-06-25] MEDS ORDERED: NS 250 ML (IVPB) BAG IV ONE (20:30)
[2018-06-25] MEDS ORDERED: IOHEXOL 350 MG/ML 100 ML (OMNIPAQUE 350) VIAL IV ONE (20:30)
--- NOTE | 2018-06-25 20:55 | Diagnostic Imaging Report ---
PROCEDURE: CT abdomen and pelvis with contrast, rule out appendicitis. TECHNIQUE: Multiple contiguous axial images were obtained through the abdomen and pelvis after the administration of intravenous contrast. INDICATION: Upper abdominal pain with nausea and diarrhea. Comparison is made with prior CT from 07/20/2013. The lung bases are clear. There is a moderate-sized hiatal hernia. No discrete liver mass is seen. 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 Gallbladder appears to be surgically absent. The pancreas and spleen are unremarkable. No adrenal mass is identified. There are tiny cortical renal low densities present, too small to characterize but most likely cysts. Aorta is non-aneurysmal. There appears to be a small fat containing midline ventral hernia just above the umbilicus. In addition, there is an umbilical hernia which does contain small bowel loop. There are some mildly prominent and fluid-filled upper abdominal small bowel loops with distal bowel normal caliber. Small bowel obstruction is suspected. The colon is decompressed. There is significant sigmoid diverticulosis but no evidence of acute diverticulitis. The bladder is decompressed. There is no ascites. IMPRESSION: 1. Umbilical hernia containing a small bowel loop. This does create some proximal small bowel fluid-filled distention consistent with small bowel obstruction. Distal loops are normal caliber. No abscess formation or free air is seen. 2. Uncomplicated sigmoid diverticulosis. Dictated by: Dictated on workstation # [id number]
[2018-06-25] MEDS ORDERED: HURRICAINE EXT TUBE (BENZOCAINE) ONE (21:05)
[2018-06-25] MEDS ORDERED: PROMETHAZINE INJ 25 MG/ML (PHENERGAN) AMP IVP ONE (21:15)
--- OUTSIDE RECORDS SUMMARY | 2018-06-25 21:49 | XMS REPORT | Clinical Summary ---
Author Author [facility] Organization [facility] Address Unknown Phone Unavailable Care Team Providers Care Programming Director Name Role Phone Gabriella Manriquez MD PCP Jennifer Rizo PA-C Unavailable Source Comments Some departments are not documenting in the electronic medical record. If you do not see the information that you expected, contact Release of Information in the Health Information Management department at [phone] for further assistance in locating additional records.[facility] Allergies Active Allergy Reactions Severity Noted Date [...] today since she was driving up from [place], [place], and didn't want to take a [...]
--- OUTSIDE RECORDS SUMMARY | 2018-06-25 21:51 | XMS REPORT | Continuity of Care Document ---
Author Author [facility] Organization [facility] Address Unknown Phone Unavailable Allergies Active Description Code Type Severity Reaction Onset Reported/Identified Relationship to Patient Clinical Status Yes Sulfa (Sulfonamide Antibiotics) [id number] Drug Allergy Unknown N/A 2006 Yes morphine [id number] Drug Allergy Moderate RED RASH WITH H [...] SELAMNDER DO, GABRIELLA S Ot 530.81 04/18/2013 ESLAMNDER DO, GABRIELLA S Ot 558.9 04/18/2013 SELAMNDER DO, GABRIELLA S Ot 562.10 04/18/2013 SELAMNDER DO, GABRIELLA S Ot 715.90 04/18/2013 SELAMNDER DO, GABRIELLA S Ot 780.52 07/21/2013 WILLY OSCAR, MEREDITH Acuña Ot 244.0 07/21/2013 WILLY OSCAR, MEREDITH Acuña Ot 250.00 07/21/2013 WILLY OSCAR, MEREDITH Acuña Ot 278.00 07/21/2013 WILLY OSCAR, MEREDITH S Ot 401.9 07/21/2013 WILLY OSCAR, MEREDITH S Ot 530.81 07/21/2013 WLILY OSCAR, MEREDITH S Ot 552.1 07/21/2013 WILLY [...] MADELEINE M Ot V72.84 11/12/2014 STEVE FERNANDEZ GABRIELLA S Ot V76.12 11/12/2014 CEDRIC OSCAR, MADELEINE [...] FOR MALIGNANT NE 03/18/2017 JOSE ALFREDO LLOYD CAPTAIN WAITER/WAITRESS Ot R04.0 EPISTAXIS 03/18/2017 JOSE ALFREDO LLOYD CAPTAIN WAITER/WAITRESS Ot S02.2XXA FRACTURE OF NASAL BONES, INIT ENCNTR FOR 03/18/2017 JOSE ALFREDO LLOYD CAPTAIN WAITER/WAITRESS Ot S09.90XA UNSPECIFIED INJURY OF HEAD, INITIAL ENCO 03/18/2017 JOSE ALFREDO LLOYD CAPTAIN WAITER/WAITRESS Ot S62.91XA UNSP FRACTURE OF RIGHT WRIST AND HAND, I 03/18/2017 JOSE ALFREDO LLOYD CAPTAIN WAITER/WAITRESS Ot W01.198A FALL SAME LEV FROM SLIP/TRIP W STRIKE AG 03/18/2017 Ot V76.12 OTH SCREEN MAMMO-MALIGN NEOPLASM OF PJ 03/18/2017 Ot 722.91 DISC DIS NEC /NOS-CERV 03/18/2017 Ot 787.20 DYSPHAGIA, UNSPECIFIED 03/18/2017 JOEY KEEN RETAIL MERCHANDISING MANAGER Ot Z12.31 ENCNTR SCREEN MAMMOGRAM FOR MALIGNANT NE 05/11/2017 ORENDER DO, GABRIELLA S Ot Z12.31 ENCNTR SCREEN MAMMOGRAM FOR MALIGNANT NE 05/11/2017 Ot 787.20 DYSPHAGIA, UNSPECIFIED 05/11/2017 JOEY KEEN RETAIL MERCHANDISING MANAGER Ot Z12.31 ENCNTR SCREEN MAMMOGRAM FOR MALIGNANT NE 05/11/2017 ORENDER DO, GABRIELLA S Ot Z12.31 ENCNTR SCREEN MAMMOGRAM FOR MALIGNANT NE 05/17/2017 ORENDER DO, GABRIELLA S Ot Z12.31 ENCNTR SCREEN MAMMOGRAM FOR MALIGNANT NE 05/19/2017 Ot 787.20 DYSPHAGIA, UNSPECIFIED 05/19/2017 JOEY KEEN RETAIL MERCHANDISING MANAGER Ot Z12.31 ENCNTR SCREEN MAMMOGRAM FOR MALIGNANT [...] Elizabeth Ot F41.9 ANXIETY DISORDER, UNSPECIFIED 11/13/2017 [facility] FILIBERTO Elizabeth Ot M25.531 PAIN IN RIGHT WRIST 11/13/2017 [facility] FILIBERTO Elizabeth Ot S52.201A UNSP FRACTURE OF SHAFT OF RIGHT ULNA, IN 11/13/2017 [facility] FILIBERTO Elizabeth Ot S52.571A OTH INTARTIC FRACTURE OF LOWER END OF RI 11/13/2017 [facility] FILIBERTO K Ot W00.0XXA FALL ON SAME LEVEL DUE TO ICE AND SNOW, 11/13/2017 [facility] FILIBERTO K Ot Z88.2 ALLERGY STATUS TO SULFONAMIDES STATUS 11/13/2017 [facility] FILIBERTO K Ot Z88.5 ALLERGY STATUS TO NARCOTIC AGENT STATUS 11/13/2017 [facility] Ot Z90.710 ACQUIRED ABSENCE OF BOTH CERVIX AND UTER 11/13/2017 [facility] Ot Z90.89 ACQUIRED ABSENCE OF OTHER ORGANS 11/15/2017 [facility] FILIBERTO K Ot D64.9 ANEMIA, UNSPECIFIED 11/15/2017 [facility] FILIBERTO Elizabeth Ot E03.9 HYPOTHYROIDISM, UNSPECIFIED 11/15/2017 [facility] FILIBERTO Elizabeth Ot E11.9 TYPE 2 DIABETES MELLITUS WITHOUT COMPLIC 11/15/2017 [facility] FILIBERTO K Ot F32.9 MAJOR DEPRESSIVE DISORDER, SINGLE EPISOD 11/15/2017 [facility] FILIBERTO Elizabeth Ot F41.9 ANXIETY DISORDER, UNSPECIFIED 11/15/2017 [facility] FILIBERTO Elizabeth Ot M25.531 PAIN IN RIGHT WRIST 11/15/2017 [facility] FILIBERTO Elizabeth Ot S52.201A UNSP FRACTURE OF SHAFT OF RIGHT ULNA, IN 11/15/2017 [facility] FILIBERTO K Ot S52.571A OTH INTARTIC FRACTURE OF LOWER END OF RI 11/15/2017 TRINWAY FILIBERTO K Ot W00.0XXA FALL ON SAME LEVEL DUE TO ICE AND SNOW, 11/15/2017 YIMI DO FILIBERTO K Ot Z88.2 ALLERGY STATUS TO SULFONAMIDES STATUS 11/15/2017 [facility] Ot Z88.5 ALLERGY STATUS TO NARCOTIC AGENT STATUS 11/15/2017 [facility], FILIBERTO K Ot Z90.710 ACQUIRED ABSENCE OF BOTH CERVIX AND UTER 11/15/2017 FILIBERTO GELLER DO Ot Z90.89 ACQUIRED ABSENCE OF OTHER ORGANS 11/17/2017 SELAMNDER GABRIELLA FERNANDEZ S Ot I10 ESSENTIAL (PRIMARY) HYPERTENSION 11/17/2017 SELAMNDER DO, GABRIELLA S Ot I65.23 OCCLUSION AND STENOSIS OF BILATERAL CHEN 12/06/2017 ORENDER DO, GABRIELLA S Ot R05 COUGH 12/24/2017 ORENDER DO, GABRIELLA S Ot R05 COUGH 12/29/2017 [facility] S Ot R05 COUGH 06/08/2018 LEONILA JOEY M RETAIL MERCHANDISING MANAGER Ot Z12.31 ENCNTR SCREEN MAMMOGRAM FOR MALIGNANT NE 06/08/2018 SELAMNDER DO, GABRIELLA S Ot R92.8 OTH ABN AND INCONCLUSIVE FINDINGS ON DX 06/08/2018 SELAMND , GABRIELLA S Ot Z12.31 ENCNTR SCREEN MAMMOGRAM FOR MALIGNANT NE 06/08/2018 SELAMNDER , GABRIELLA S Ot R92.1 MAMMOGRAPHIC CALCIFCN FOUND ON DIAGNOSTI 06/08/2018 SELAMND , GABRIELLA S Ot M81.0 AGE-RELATED OSTEOPOROSIS W/O CURRENT PAT 06/08/2018 TAWANDA GABRIELLA FERNANDEZ S Ot I10 ESSENTIAL (PRIMARY) HYPERTENSION 06/08/2018 SELAMND DO, GABRIELLA S Ot I65.23 OCCLUSION AND STENOSIS OF BILATERAL CHEN 06/08/2018 [facility] S Ot R05 COUGH 06/08/2018 SELAMND DO, GABRIELLA S Ot Z12.31 ENCNTR SCREEN MAMMOGRAM FOR MALIGNANT NE 06/14/2018 SELAMND DO, GABRIELLA S Ot Z12.31 ENCNTR SCREEN MAMMOGRAM FOR MALIGNANT NE Procedures There is no data. Results Test Result Range Complete urinalysis with reflex to culture - 06/25/18 19:45 Urine color determination YELLOW NRG Urine clarity determination SLIGHTLY CLOUDY NRG Urine pH measurement by test strip 7 5-9 Specific gravity of urine by test strip 1.010 1.016- 1.022 Urine protein assay by test strip, semi-quantitative NEGATIVE NEGATIVE Urine glucose detection by automated test strip NEGATIVE NEGATIVE Erythrocytes detection in urine sediment by light microscopy NEGATIVE NEGATIVE Urine ketones detection by automated test strip 2+ NEGATIVE Urine nitrite detection by test strip NEGATIVE NEGATIVE Urine total bilirubin detection by test strip NEGATIVE NEGATIVE Urine urobilinogen measurement by automated test strip (mass/volume) NORMAL NORMAL Urine leukocyte esterase detection by dipstick NEGATIVE NEGATIVE Automated urine sediment erythrocyte count by microscopy (number/high power field) NONE NRG Automated urine sediment leukocyte count by microscopy (number/high power field ) [HPF] NRG Bacteria detection in urine sediment by light microscopy TRACE NRG Squamous epithelial cells detection in urine sediment by light microscopy 10-25 NRG Crystals detection in urine sediment by light microscopy NONE NRG Casts detection in urine sediment by light microscopy NONE NRG Mucus detection in urine sediment by light microscopy SMALL NRG Complete urinalysis with reflex to culture NO NRG Renal epithelial cells detection in urine sediment by light microscopy NONE NRG Complete blood count (CBC) with automated white blood cell (WBC) differential - 06/25/18 19:51 Blood leukocytes automated count (number/volume) 12.5 10*3/uL 4.3-11.0 Blood erythrocytes automated count (number/volume) 4.73 10*6/uL 4.35-5.85 Venous blood hemoglobin measurement (mass/volume) 14.9 g/dL 11.5-16.0 Blood hematocrit (volume fraction) 43 % 35-52 Automated erythrocyte mean corpuscular volume 90 [foz_us] 80-99 Automated erythrocyte mean corpuscular hemoglobin (mass per erythrocyte) 32 pg 25-34 Automated erythrocyte mean corpuscular hemoglobin concentration measurement ( mass/volume) 35 g/dL 32-36 Automated erythrocyte distribution width ratio 13.4 % 10.0-14.5 Automated blood platelet count (count/volume) 326 10*3/uL 130-400 Automated blood platelet mean volume measurement 10.9 [foz_us] 7.4-10.4 Automated blood neutrophils/100 leukocytes 75 % 42-75 Automated blood lymphocytes/100 leukocytes 17 % 12-44 Blood monocytes/100 leukocytes 7 % 0-12 Automated blood eosinophils/100 leukocytes 1 % 0-10 Automated blood basophils/100 leukocytes 0 % 0-10 Blood neutrophils automated count (number/volume) 9.3 10*3 1.8-7.8 Blood lymphocytes automated count (number/volume) 2.2 10*3 1.0-4.0 Blood monocytes automated count (number/volume) 0.9 10*3 0.0-1.0 Automated eosinophil count 0.1 10*3/uL 0.0-0.3 Automated blood basophil count (count/volume) 0.0 10*3/uL 0.0-0.1 Comprehensive metabolic panel - 06/25/18 19:51 Serum or plasma sodium measurement (moles/volume) 140 mmol/L 135-145 Serum or plasma potassium measurement (moles/volume) 3.8 mmol/L 3.6-5.0 Serum or plasma chloride measurement (moles/volume) 106 mmol/L 98-107 Carbon dioxide 22 mmol/L 21-32 Serum or plasma anion gap determination (moles/volume) 12 mmol/L 5-14 Serum or plasma urea nitrogen measurement (mass/volume) 12 mg/dL 7-18 Serum or plasma creatinine measurement (mass/volume) 0.74 mg/dL 0.60-1.30 Serum or plasma urea nitrogen/creatinine mass ratio 16 NRG Serum or plasma creatinine measurement with calculation of estimated glomerular filtration rate > NRG Serum or plasma glucose measurement (mass/volume) 103 mg/dL 70-105 Serum or plasma calcium measurement (mass/volume) 10.0 mg/dL 8.5-10.1 Serum or plasma total bilirubin measurement (mass/volume) 0.4 mg/dL 0.1-1.0 Serum or plasma alkaline phosphatase measurement (enzymatic activity/volume) 91 U/L 40-136 Serum or plasma aspartate aminotransferase measurement (enzymatic activity/ volume) 18 U/L 5-34 Serum or plasma alanine aminotransferase measurement (enzymatic activity/volume ) 15 U/L 0-55 Serum or plasma protein measurement (mass/volume) 8.0 g/dL 6.4-8.2 Serum or plasma albumin measurement (mass/volume) 4.4 g/dL 3.2-4.5 CALCIUM CORRECTED 9.7 mg/dL 8.5-10.1 Serum or plasma troponin i.cardiac measurement (mass/volume) - 06/25/18 19:51 Serum or plasma troponin i.cardiac measurement (mass/volume) < ng/ mL <0.30 Lipase - 06/25/18 19:51 Lipase 22 U/L 8-78 Encounters ACCT No. Visit Date/Time Discharge Status Pt. Type Provider Facility Loc./Unit Complaint [id number] 06/13/2018 15:08:00 06/13/2018 23:59:59 CLS Outpatient IÁVN WILSON DOQUELINE S [facility] RAD SCREENING [id number] 06/08/2018 15:01:00 06/08/2018 23:59:59 CLS Outpatient IVÁN WILSON DOQUELINE S [facility] RAD LOW BACK PAIN [id number] 12/02/2017 13:20:00 12/02/2017 23:59:59 CLS Outpatient IVÁN WILSON DOQUELINE S [facility] RAD COUGH [id number] 11/13/2017 21:28:00 11/13/2017 23:20:00 DIS Emergency FILIBERTO GELLER DO [facility] ER FELL ON ICE,POSS BROKEN R ARM [id number] 09/08/2017 09:00:00 09/08/2017 23:59:59 CLS Outpatient STEVE FERNANDEZ GABRIELLA S [facility] RAD CAROTID ARTERY STENOSIS [id number] 06/17/2017 10:26:00 06/17/2017 23:59:59 CLS Outpatient STEVE FERNANDEZ GABRIELLA S [facility] RAD POSTMENOPAUSAL OSTEOPOROSIS W/CURRENT L WRIST FRAC [id number] 05/27/2017 14:11:00 05/27/2017 23:59:59 CLS Outpatient STEVE FERNANDEZ GABRIELLA S [facility] RAD BILAT BREAST CALCIFICATIONS [id number] 05/19/2017 14:43:00 05/19/2017 23:59:59 CLS Outpatient STEVE FERNANDEZ GABRIELLA S [facility] RAD SCREENING Z12.31 [id number] 03/18/2017 19:47:00 03/18/2017 21:52:00 DIS Emergency JOSE ALFREDO LLOYD CAPTAIN WAITER/WAITRESS [facility] ER FALL [id number] 03/10/2016 13:49:00 03/10/2016 23:59:59 CLS Outpatient JOEY KEEN RETAIL MERCHANDISING MANAGER [facility] RAD SCREENING [id number] 03/07/2015 15:18:00 03/07/2015 23:59:59 CLS Outpatient STEVE FERNANDEZ GABRIELLA S [facility] RAD [id number] 02/06/2015 15:36:00 02/06/2015 23:59:59 CLS Outpatient SELAMNDER DO GABRIELLA S [facility] RAD [id number] 11/09/2014 10:12:00 11/09/2014 23:59:59 CLS Outpatient ORENDER DO GABRIELLA S [facility] RAD [id number] 09/03/2014 09:44:00 09/03/2014 23:59:59 CLS Outpatient MADELEINE STEELE MD [facility] [id number] 08/29/2014 06:08:00 08/29/2014 23:59:59 CLS Outpatient MADELEINE STEELE MD [facility] PREOP [id number] 03/01/2014 10:05:00 03/01/2014 23:59:59 CLS Outpatient ORENDER DOIVÁNGABRIELLA S [facility] RAD [id number] 08/28/2013 10:36:00 08/28/2013 14:00:00 DIS Outpatient MADELEINE STEELE MD [facility] [id number] 08/24/2013 07:11:00 08/24/2013 23:59:59 CLS Outpatient MADELEINE STEELE MD [facility] PREOP [id number] 07/27/2013 10:17:00 07/29/2013 14:21:00 DIS Outpatient MADELEINE STEELE MD [facility] [id number] 07/20/2013 21:58:00 07/21/2013 15:10:00 DIS Inpatient WILLY OSCAR, MEREDITH S [facility] SURGICAL [id number] 04/14/2013 14:56:00 04/18/2013 14:30:00 DIS Inpatient SELAMNDER DOIVÁNGABRIELLA S [facility] SURGICAL [id number] 06/25/2018 21:44:00 ACT Inpatient PEARL ROLLE MD [facility] 4TH SMALL BOWEL OBSTRUCTION [id number] 03/10/2016 13:49:00 Document Registration [id number] 12/22/2012 09:45:00 Document Registration [id number] 04/21/2012 10:00:00 Document Registration [id number] 10/30/2011 11:20:00 Document Registration [id number] 10/26/2011 10:58:00 Document Registration [id number] 03/25/2011 08:28:00 Document Registration [id number] 03/20/2011 13:36:00 Document Registration [id number] 10/30/2010 09:02:00 Document Registration [id number] 10/23/2010 09:04:00 Document Registration [email or web address] 03/08/2015 05:29:32 ACT Document Registration 06/27/16 06/13/2018 11:48:42 06/13/2018 23:59:59 Gabriella Haley
--- NOTE | 2018-06-25 22:04 | Diagnostic Imaging Report ---
INDICATION: Abdominal pain. Time of exam: 9:55 PM NG tube passes below the diaphragm. Lungs are clear. Heart size is normal. There is no effusion or pneumothorax. IMPRESSION: No acute cardiopulmonary process is identified. Dictated by: Dictated on workstation # [id number]
[2018-06-25 22:25] VITALS: BP 141/69
[2018-06-25] MEDS ORDERED: ONDANSETRON 4 MG/2 ML (SDV) Z0FRAN IV PRN (23:30)
[2018-06-25] MEDS: PANTOPRAZOLE 40 MG (PROTONIX) VIAL IV SCH (23:50)
[2018-06-25] MEDS: NS W/KCL 20 MEQ/L 1,000 ML IV SCH (23:51)
[2018-06-25] MEDS: metroNIDAZOLE 500 MG/100 ML IVPB (PRE-MIX) IV SCH (23:51)
[2018-06-26] VITALS: BP 143/71
[2018-06-26] MEDS ORDERED: LISI-552 PO (00:33)
[2018-06-26] MEDS ORDERED: CYAN250T PO (00:33)
[2018-06-26] MEDS: CIPROFLOXACIN 400 MG/D5W 200 ML (PRE-MIX) IV SCH ×3 (00:42→23:46)
[2018-06-26] MEDS: fentaNYL INJECTION 100 MCG/2 ML AMP IV PRN ×2 (02:55→19:45)
[2018-06-26] MEDS ORDERED: LOSA100T8 PO (03:54)
[2018-06-26 04:00] VITALS: BP 129/61
[2018-06-26 05:47] LABS: BASOPHILS % (AUTO) 0 % (0-10); EOSINOPHILS # (AUTO) 0.1 10^3/uL (0.0-0.3); EOSINOPHILS % (AUTO) 1 % (0-10); HEMATOCRIT 39 % (35-52); HEMOGLOBIN 12.9 G/DL (11.5-16.0); LYMPHOCYTES # (AUTO) 2.1 X 10^3 (1.0-4.0); LYMPHOCYTES % (AUTO) 18 % (12-44); MEAN CORPUSCULAR HEMOGLOBIN 31 PG (25-34); MEAN CORPUSCULAR HGB CONC 33 G/DL (32-36); MEAN CORPUSCULAR VOLUME 93 FL (80-99); MEAN PLATELET VOLUME 10.4 FL (7.4-10.4); MONOCYTES # (AUTO) 0.9 X 10^3 (0.0-1.0); MONOCYTES % (AUTO) 8 % (0-12); NEUTROPHILS # (AUTO) 8.3 X 10^3 (1.8-7.8); NEUTROPHILS % (AUTO) 73 % (42-75); PLATELET COUNT 287 10^3/uL (130-400); RED BLOOD COUNT 4.19 10^6/uL (4.35-5.85); RED CELL DISTRIBUTION WIDTH 13.6 % (10.0-14.5); WHITE BLOOD COUNT 11.4 10^3/uL (4.3-11.0)
[2018-06-26 06:13] LABS: ALANINE AMINOTRANSFERASE 13 U/L (0-55); ALBUMIN 3.6 GM/DL (3.2-4.5); ALKALINE PHOSPHATASE 71 U/L (40-136); BILIRUBIN,TOTAL 0.4 MG/DL (0.1-1.0); BUN/CREATININE RATIO 13; CALCIUM 8.8 MG/DL (8.5-10.1); CARBON DIOXIDE 22 MMOL/L (21-32); CHLORIDE 109 MMOL/L (98-107); GFR ESTIMATED > 60; GLUCOSE 109 MG/DL (70-105); POTASSIUM 3.9 MMOL/L (3.6-5.0); SODIUM 140 MMOL/L (135-145); TOTAL PROTEIN 6.3 GM/DL (6.4-8.2)
[2018-06-26] MEDS: metroNIDAZOLE 500 MG/100 ML IVPB (PRE-MIX) IV SCH ×3 (06:52→22:30)
[2018-06-26] MEDS ORDERED: FLU QUADRIvalent (5+ YOA) 2018-2019 (AFLURIA) 0.5 ML IM ONE ×2 (07:15→09:19)
[2018-06-26 08:00] VITALS: BP 122/56
[2018-06-26] MEDS: NS W/KCL 20 MEQ/L 1,000 ML IV SCH ×2 (11:17→15:48)
[2018-06-26] MEDS: PANTOPRAZOLE 40 MG (PROTONIX) VIAL IV SCH ×2 (11:19→22:30)
--- NOTE | 2018-06-26 11:47 | History & Physicial ---
History of Present Illness History of Present Illness Reason for visit/HPI This is a 72 year old female who was seen with Dr. Rolle. Patient reports that she presented to the ER last night after a 2 week history of diffuse abdominal pain. She reports that it is intermittent and sharp at times. She does report associated nausea and did vomit once a week ago. She Reports that she did also have sweats and chills 3 days ago. She reports that over the course of the 2 weeks the pain has increased as well as having diarrhea and reflux. She reports that she has a midline abdominal incision from a previous hysterectomy and did have a ventral abdominal incision hernia repaired about 2 years ago. She reports that she has gained weight over the past 3 years since the passing of her . She reports that she did move recently and was doing some heavy lifting. While in the ER a CT scan was performed which showed a umbilical hernia containing a loop of small bowel. Date of Admission Jun 25, 2018 at 21:44 Date Seen by a Provider: Jun 26, 2018 Time Seen by a Provider: 11:30 I consulted on this patient on 06/26/18 11:41 Attending Physician Pearl Rolle MD Admitting Physician Gabriella Manriquez DO Consult Allergies and Home Medications Allergies Coded Allergies: morphine (Unverified Allergy, Intermediate, RED RASH WITH HIVES, 11/13/17) Sulfa (Sulfonamide Antibiotics) (Verified Allergy, Unknown, 11/03/06) Home Medications Cholecalciferol (Vitamin D3) 1,000 Unit Capsule, 1,000 UNIT PO DAILY, (Reported) Cyanocobalamin (Vitamin B-12) 250 Mcg Tablet, 250 MCG PO DAILY, (Reported) Levothyroxine Sodium 100 Mcg Tablet, 100 MCG PO DAILY, (Reported) Losartan Potassium 100 Mg Tablet, 100 MG PO DAILY, (Reported) Patient Home Medication List Home Medication List Reviewed: Yes Past Ybwvfag-Mycgjm-Ffuscv Hx Patient Social History Alcohol Use: Denies Use Recreational Drug Use: No Smoking Status: Never a Smoker Physical Abuse Screen: No Sexual Abuse: No Recent Foreign Travel: No Contact w/other who traveled: No Recent Hopitalizations: No Recent Infectious Disease Expo: No Immunizations Up To Date Tetanus Booster (TDap): Unknown Pediatric: Yes Date of Pneumonia Vaccine: Jul 04, 2017 Date of Influenza Vaccine: Jul 17, 2014 Seasonal Allergies Seasonal Allergies: Yes Surgeries Yes Abdominal, Gallbladder, Hysterectomy, Oophorectomy, Orthopedic, Thyroidectomy, Tonsillectomy Respiratory No Currently Using CPAP: No Currently Using BIPAP: No Cardiovascular Yes (CAROTID DISEASE) Hypertension Neurological No Reproductive System Hx Reproductive Disorders: No (HYSTERECTOMY) Sexually Transmitted Disease: No HIV/AIDS: No Female Reproductive Disorders: Denies 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: Hysterectomy, Menopausal Genitourinary No Gastrointestinal Yes Abdominal Hernia, Colitis, Gastroesophageal Reflux, Gastrointestinal Bleed, Polyps, Hiatal Hernia Musculoskeletal Yes (L ANKLE FX/ORIF; LEFT WRIST FX/ORIF) Degenerate Disk Disease, Osteoporosis, Fibromyalgia, Chronic Back Pain, Fractures Endocrine History of Endocrine Disorders: No (denies NIDDM) Endocrine Disorders: Hypothyroidsim, Diabetes, Non-Insulin dep HEENT History of HEENT Disorders: Yes HEENT Disorders: Cataract Hearing Impairment: Denies Cancer No Psychosocial History of Psychiatric Problem: Yes Behavioral Health Disorders: Sleep Difficulties, Anxiety, Depression Integumentary History of Skin or Integumenta: Yes (ADULT ACNE) Blood Transfusions History of Blood Disorders: Yes (ANEMIA, B12 DEFICIENCY) Adverse Reaction to a Blood Tr: No Family Medical History Significant Family History: No Pertinent Family Hx Review of Systems Constitutional: see HPI EENTM: no symptoms reported Respiratory: no symptoms reported Cardiovascular: no symptoms reported Gastrointestinal: see HPI, abdominal pain (diffuse), diarrhea, heartburn, nausea, vomiting Genitourinary: no symptoms reported : No Musculoskeletal: no symptoms reported Skin: no symptoms reported Psychiatric/Neurological: No Symptoms Reported All Other Systems Reviewed Negative Unless Noted: Yes Physical Exam Vital Signs Vital Signs - First Documented 06/25/18 06/25/18 19:39 22:15 Temp 98.0 Pulse 94 Resp 16 B/P (MAP) 153/74 (100) Pulse Ox 98 O2 Delivery Room Air Capillary Refill : Less Than 3 Seconds Height, Weight, BMI Height: 5'2.00" Weight: 238lbs. 1.8oz. 108.140659tz; 43.5 BMI Method:Stated General Appearance: No Apparent Distress, WD/WN Neck: Full Range of Motion, Normal Inspection, Non Tender, Supple Respiratory: Normal Breath Sounds, No Accessory Muscle Use, No Respiratory Distress Cardiovascular: Regular Rate, Rhythm, No Edema Gastrointestinal: Normal Bowel Sounds, Soft, Hernia (Ventral abdominal incision just superior to umbilicus which is painful to palpation and appears to be incarcerated. ), Tenderness Extremity: Normal Capillary Refill, Normal Inspection, Normal Range of Motion Neurologic/Psychiatric: Alert, Oriented x3 Skin: Normal Color, Warm/Dry, Other (Midline abdominal incision, RUQ incision, and laparoscopic incisions.) Assessment/Plan Assessment and Plan A 72 year old female with a recurrent ventral abdominal incisional hernia which is incarcerated. At this time we will proceed with IV fluids, pain and nausea medications. It was discussed with patient about proceeding with a ventral abdominal incisional hernia repair with mesh tomorrow. The risks, benefits, and home care instructions were explained to the patient as well as the need for weight reduction. Patient verbalized understanding and agreed to proceed as planned. We will proceed with NPO status tonight and schedule her for a ventral abdominal incisional hernia repair with mesh tomorrow. Admission Diagnosis recurrent ventral abdominal incisional hernia Admission Status: Inpatient Order (span 2 midnights) Reason for Inpatient Admission: Patient admitted due to pain and nausea control. Clinical Quality Measures DVT/VTE Risk/Contraindication: Risk Factor Score Per Nursin RFS Level Per Nursing on Admit: 3=High Copy Copies To 1: PEARL ROLLE MD, DUSTIN L APRN Jun 26, 2018 11:47 am
[2018-06-26 12:00] VITALS: BP 119/67
--- NOTE | 2018-06-26 12:30 | Progress Note-Pre Operative ---
Pre-Operative Progress Note H&P Reviewed The H&P was reviewed, patient examined and no changes noted. Date Seen by Provider: Jun 26, 2018 Time Seen by Provider: 12:20 Date H&P Reviewed: Jun 26, 2018 Time H&P Reviewed: 12:20 Pre-Operative Diagnosis: recurrent ventral abdominal incisional hernia, incarcerated PEARL ROLLE MD Jun 26, 2018 12:30 pm
[2018-06-26 16:21] VITALS: BP 111/53
[2018-06-26 19:15] VITALS: BP 121/92
[2018-06-27 00:09] VITALS: BP 126/61
[2018-06-27] MEDS: NS W/KCL 20 MEQ/L 1,000 ML IV SCH ×4 (02:02→20:18)
[2018-06-27 04:03] VITALS: BP 131/64
[2018-06-27] MEDS: metroNIDAZOLE 500 MG/100 ML IVPB (PRE-MIX) IV SCH ×3 (06:23→23:24)
[2018-06-27 08:00] VITALS: BP 133/65
[2018-06-27] MEDS ORDERED: LEVO100T7 PO (10:17)
[2018-06-27] MEDS ORDERED: CHOL10007 PO (10:17)
[2018-06-27] MEDS: CIPROFLOXACIN 400 MG/D5W 200 ML (PRE-MIX) IV SCH ×2 (10:55→20:18)
[2018-06-27] MEDS: PANTOPRAZOLE 40 MG (PROTONIX) VIAL IV SCH ×2 (10:59→23:24)
[2018-06-27 12:00] VITALS: BP 146/66
[2018-06-27] MEDS ORDERED: BUP/EPI 0.5% 1:200,000 (SENSORCAINE) 30 ML VIAL ONE (12:57)
[2018-06-27] MEDS ORDERED: ROCURONIUM 10 MG/ML 5 ML SYRINGE IV ONE (13:29)
[2018-06-27] MEDS ORDERED: ONDANSETRON 4 MG/2 ML (SDV) Z0FRAN ONE (13:29)
[2018-06-27] MEDS ORDERED: SEVOFLURANE (ULTANE) 15 ML INHAL SOLN ONE ×8 (13:29→17:51)
[2018-06-27] MEDS ORDERED: LIDOCAINE PF 2% 2 ML (XYLOCAINE) VIAL ONE ×2 (13:29→13:32)
[2018-06-27] MEDS ORDERED: proPOfol 200 MG/20 ML (DIPRIVAN) VIAL IV ONE (13:29)
[2018-06-27] MEDS ORDERED: fentaNYL INJECTION 100 MCG/2 ML AMP ONE ×3 (13:30→18:00)
[2018-06-27] MEDS ORDERED: DEXAMETHASONE 10 MG/ML (DECADRON) 1 ML VIAL ONE (13:33)
[2018-06-27] MEDS: LACTATED RINGERS 1,000 ML IV PRN ×2 (15:50→17:08)
[2018-06-27] MEDS ORDERED: ceFAZolin 2 GM IV Premixed 50 ML ONE (15:51)
--- NOTE | 2018-06-27 15:59 | Progress Note-Standard ---
Standard Progress Note Progress Notes/Assess & Plan Date Seen by a Provider: Jun 27, 2018 Time Seen by a Provider: 15:50 Progress/Assessment & Plan Patient seen and reports doing ok, but still having abdominal pain. No other issues. Questions answered for surgery. Will proceed with open ventral abdominal incisional hernia repair with mesh. WADE ALBERTO APRN Jun 27, 2018 3:59 pm
[2018-06-27] MEDS ORDERED: ceFAZolin 2 GM IV Premixed 50 ML IV ONE (16:30)
[2018-06-27] MEDS ORDERED: HYDROmorphone 2 MG/ML VIAL (DILAUDID) ONE (16:52)
[2018-06-27] MEDS ORDERED: NEOSTIGMINE 1 MG/ML 5 ML SYRINGE ONE (17:50)
[2018-06-27] MEDS ORDERED: GLYCOPYRROLATE 0.2 MG/ML (ROBINUL) 2 ML VIAL ONE (17:50)
--- NOTE | 2018-06-27 18:06 | Progress Note-Post Operative ---
Post-Operative Progess Note Surgeon (s)/Entry Level Software Developer (s) Surgeon PEARL ROLLE MD Entry Level Software Developer: saskia leonard INSTRUMENTATION CONTROLS ENGINEER Pre-Operative Diagnosis recurrent ventral abdominal incisional hernia, incarcerated Post-Operative Diagnosis multiple recurrent ventral abd inc hernias, incarcerated. Procedure & Operative Findings Date of Procedure 06/27/18 Procedure Performed/Findings exploratory laparotomy, lysis of adhesions, small bowel resection and anastamosis, enterorrhaphy, primary repair recurrent incarcerated incisional hernias. Anesthesia Type GET Estimated Blood Loss Estimated blood loss (mL): minimal Specimens/Packing Specimens Removed small bowel segment. PEARL ROLLE MD Jun 27, 2018 6:06 pm
[2018-06-27] MEDS ORDERED: HYDROmorphone 2 MG/ML VIAL (DILAUDID) IV ONE (19:30)
[2018-06-27] MEDS ORDERED: ONDANSETRON 4 MG/2 ML (SDV) Z0FRAN IVP PRN (19:30)
[2018-06-27 20:00] VITALS: BP 139/62
[2018-06-27] MEDS: fentaNYL INJECTION 100 MCG/2 ML AMP IV PRN ×2 (20:19→21:59)
--- NOTE | 2018-06-27 22:17 | OPERATIVE REPORT ---
DATE OF SERVICE: 06/27/2018 ATTENDING PRIMARY CARE PHYSICIAN: Gabriella Manriquez DO PREOPERATIVE DIAGNOSIS: Recurrent incarcerated ventral abdominal incisional hernia. POSTOPERATIVE DIAGNOSIS: Multiple recurrent incarcerated ventral abdominal incisional hernias with extensive adhesions. PROCEDURES: Exploratory laparotomy, lysis of adhesions, which took greater than 90 minutes. Two enterotomies were identified and we proceeded with small bowel resection and anastomosis of 1 segment with adhered mesh, enterorrhaphy of a small enterotomy. Primary repair multiple recurrent incarcerated ventral abdominal incisional hernias. SURGEON: Thanh Grace MD HOME HEALTH OUTREACH COORDINATOR: Leo Guerrier APRN ANESTHESIA: General endotracheal. ESTIMATED BLOOD LOSS: 250 mL. FINDINGS: Multiple recurrent ventral abdominal incisional hernias that were incarcerated. Extensive intra-abdominal adhesions. A small bowel enterotomy was identified, which was greater than 50%. Just distal to this after the lysis of adhesions was adherent previous mesh and we decided to resect this segment, which was approximately 12 cm in length. We then proceeded with primary anastomosis. A smaller enterotomy less than 25% of the bowel was identified and closed primarily in two layers. DISPOSITION: The patient tolerated the procedure well. INDICATIONS: The patient is a 73-year-old female who presented to the Emergency Department with a 2-week history of diffuse abdominal pain, which has been intermittent and sharp at times. She also reports intermittent episodes of nausea and vomiting as well. She has had multiple abdominal surgeries done in the past. She has had a previous midline laparotomy incision from a previous hysterectomy as well as open Slim incision and as well as a previous ventral abdominal incisional hernia repair with mesh. A CT scan was performed, which did identify an incarcerated hernia. Upon examination, she does not have any peritoneal signs and she was dehydrated and also had a urinary tract infection and we did admit this patient, observed her, proceeded with bowel rest as well as antibiotics. DESCRIPTION OF PROCEDURE: The patient was brought to the operating room, laid supine on the table. After adequate IV pain and sedative medications and general endotracheal intubation, the abdomen was prepped and draped in standard surgical fashion. A 0.5% Marcaine with epinephrine was used to anesthetize the overlying skin along the previous midline incision close to the umbilicus. The skin incision was made using a 15 blade. Subcutaneous tissue was dissected down to the hernia sac. This was dissected out. Upon examination of the hernia defect, there was multiple small hernia defects scattered superiorly and inferiorly. Some of these hernia sacs had omentum as well as a small bowel in them. We then proceeded with meticulous dissection of the intraperitoneal adhesions using Metzenbaum scissors as well as electrocautery. The fascial hernia defects were then connected with electrocautery. Upon exploration of the peritoneal cavity, there was a bile identified. Upon further exploration, it was identified that there was an enterotomy that was greater than 50% of the circumferential diameter of the small bowel. Just a few centimeters distal to this was an excised mesh that was hard and adhered to the top of the bowel and adjacent portion as well. This segment was approximately 12 cm in length. An opening was made in the mesentery using electrocautery and we proceeded with a stapling and transection of the small bowel and using a CHRISTINE 55 mm stapler with blue loads. The omentum was then cut and cauterized using electrocautery with visualization of good hemostasis. We then proceeded with end-to-end anastomosis after the staple corners were opened and a CHRISTINE 55 mm blue load was used to create the anastomosis. The open end was then loosely approximated using 3-0 silk sutures and the open end stapled using the same stapler. The mesentery was then approximated using 3-0 silk suture. Upon further exploration just distal to this was a smaller enterotomy less than 25% of the luminal diameter, which was closed primarily in 2 layers using 3-0 silk. The abdomen was then copiously irrigated and suctioned out with visualization of good hemostasis as well as no other enterotomies or serosal tears. We then proceeded with approximating the fascia and encompassing all the previous hernias primarily using #1 PDS suture starting superiorly and inferiorly taking frequent small fascial bites and then tying this in the middle. Good hemostasis was observed. The subcutaneous tissue was then reapproximated using 3-0 Vicryl interrupted sutures. Skin was closed using loosely approximated skin antony. The wound was then cleaned and covered with island dressing. Before this a 19-Faroese Sergo-Laguerre drain was placed into the abdominal cavity. The patient tolerated the procedure well. We will admit her back to the floor. We will keep her n.p.o. for now and await bowel function and proceed with early ambulation and pain control. When she does show return of bowel function, we will start clear liquid diet and advance as tolerated. We will also await the pathology result for suspected crohns disease as well. Diffuse mesenteric fat creeping of the small bowel was indentified intraoperatively. Job ID: [id number] DocumentID: [id number] Dictated Date: 06/27/2018 18:26:41 Forestry Technical Officer Date: 06/27/2018 22:16:40 Dictated By: THANH GRACE MD MTDD
[2018-06-27] MEDS: HYDROcodone/APAP 7.5 MG/325 MG (LORTAB, LORCET PLUS) TABLET PO PRN (23:25)
[2018-06-28] VITALS (7 sets, daily range): BP systolic 112–141; BP diastolic 56–80
[2018-06-28] MEDS: fentaNYL INJECTION 100 MCG/2 ML AMP IV PRN ×3 (02:53→16:08)
[2018-06-28] MEDS: HYDROcodone/APAP 7.5 MG/325 MG (LORTAB, LORCET PLUS) TABLET PO PRN ×3 (06:17→22:51)
[2018-06-28] MEDS: NS W/KCL 20 MEQ/L 1,000 ML IV SCH ×3 (06:41→23:45)
[2018-06-28] MEDS: metroNIDAZOLE 500 MG/100 ML IVPB (PRE-MIX) IV SCH ×3 (07:39→23:45)
[2018-06-28 07:42] LABS: HEMOGLOBIN 12.3 G/DL (11.5-16.0); MEAN PLATELET VOLUME 10.3 FL (7.4-10.4); RED CELL DISTRIBUTION WIDTH 13.2 % (10.0-14.5)
[2018-06-28 08:00] LABS: BUN/CREATININE RATIO 8; CALCIUM 8.4 MG/DL (8.5-10.1); CARBON DIOXIDE 20 MMOL/L (21-32); CHLORIDE 110 MMOL/L (98-107); CREATININE SERUM 0.63 MG/DL (0.60-1.30); GFR ESTIMATED > 60; GLUCOSE 125 MG/DL (70-105); POTASSIUM 4.1 MMOL/L (3.6-5.0); SODIUM 139 MMOL/L (135-145)
--- NOTE | 2018-06-28 09:27 | Anesthesia-General Post-Op ---
General Patient Condition Mental Status/LOC: Same as Preop Cardiovascular: Satisfactory Nausea/Vomiting: Absent Respiratory: Satisfactory Pain: Controlled Complications: Absent Post Op Complications Complications None Follow Up Care/Instructions Patient Instructions None needed. Anesthesia/Patient Condition Patient Condition Patient is doing well, no complaints, stable vital signs, no apparent adverse anesthesia problems. No complications reported per nursing. D/C home per [facility] Criteria: LUIS Radford CRNA Jun 28, 2018 09:27
[2018-06-28] MEDS: CIPROFLOXACIN 400 MG/D5W 200 ML (PRE-MIX) IV SCH ×2 (11:12→22:47)
[2018-06-28] MEDS: PANTOPRAZOLE 40 MG (PROTONIX) VIAL IV SCH ×2 (11:12→23:45)
--- NOTE | 2018-06-28 12:54 | Progress Note (SOAP) ---
Subjective Date Seen by a Provider: Jun 28, 2018 Time Seen by a Provider: 11:00 Subjective/Events-last exam doing well. pain controlled. no bowel fxn yet. ambulating well. Objective Exam Vital Signs Date Time Temp Pulse Resp B/P (MAP) Pulse Ox O2 Delivery O2 Flow Rate FiO2 06/28/18 12:00 97.6 80 16 130/80 (97) 98 Nasal Cannula 2.00 06/28/18 11:00 94 Room Air 06/28/18 08:25 95 Nasal Cannula 2.00 06/28/18 08:00 96.9 67 14 130/62 (84) 95 Nasal Cannula 2.00 06/28/18 07:30 100 Nasal Cannula 3.00 06/28/18 04:14 98.9 89 17 112/56 (74) 99 Nasal Cannula 3.00 06/28/18 02:45 99 Nasal Cannula 4.00 06/28/18 00:06 97.2 86 19 141/67 (91) 99 Nasal Cannula 4.00 06/27/18 22:40 95 Nasal Cannula 4.00 06/27/18 20:12 94 Nasal Cannula 3.00 06/27/18 20:00 98.4 83 18 139/62 (87) 97 Room Air 06/27/18 20:00 93 Nasal Cannula 5.00 I & O 06/28/18 07:00 Intake Total 2550 ml Output Total 1065 ml Balance 1485 ml Capillary Refill : Less Than 3 Seconds General Appearance: No Apparent Distress HEENT: PERRL/EOMI Neck: Full Range of Motion Respiratory: Chest Non Tender, Lungs Clear, Normal Breath Sounds Cardiovascular: Regular Rate, Rhythm Gastrointestinal: soft, tenderness, other (inc clean/dry, BEATRIZ minimal SS) Extremity: Normal Capillary Refill Neurologic/Psychiatric: Alert, Oriented x3 Skin: Normal Color Lymphatic: No Adenopathy Results Lab Laboratory Tests 06/28/18 07:35: White Blood Count 14.0H, Red Blood Count 4.00L, Hemoglobin 12.3, Hematocrit 37, Mean Corpuscular Volume 92, Mean Corpuscular Hemoglobin 31, Mean Corpuscular Hemoglobin Concent 33, Red Cell Distribution Width 13.2, Platelet Count 258, Mean Platelet Volume 10.3, Sodium Level 139, Potassium Level 4.1, Chloride Level 110H, Carbon Dioxide Level 20L, Anion Gap 9, Blood Urea Nitrogen 5L, Creatinine 0.63, Estimat Glomerular Filtration Rate > 60, BUN/Creatinine Ratio 8 , Glucose Level 125H, Calcium Level 8.4L Microbiology 06/26/18 MRSA Screen - Final, Complete MRSA not isolated Assessment/Plan Assessment/Plan Assess & Plan/Chief Complaint s/p expl lap, small bowel resection, lysis of adhesions and multiple recurrent incisional hernia repair primarily. suspect crohn's due to diffuse adhesions, hx of intermittent crampy abd pain with diarrhea. also introp finding of diffuse mesenteric fat creeping small bowel. will continue abx for now due to contamination and [place](morbid obesity and limited mobility). await bowel fxn then start clears. Clinical Quality Measures DVT/VTE Risk/Contraindication: Risk Factor Score Per Nursin RFS Level Per Nursing on Admit: 3=High PEARL ROLLE MD Jun 28, 2018 12:54
[2018-06-29 04:00] VITALS: BP 120/58
[2018-06-29] MEDS: NS W/KCL 20 MEQ/L 1,000 ML IV SCH ×2 (04:43→14:51)
[2018-06-29] MEDS: metroNIDAZOLE 500 MG/100 ML IVPB (PRE-MIX) IV SCH ×2 (06:27→14:52)
[2018-06-29] MEDS: fentaNYL INJECTION 100 MCG/2 ML AMP IV PRN (07:36)
[2018-06-29 08:00] VITALS: BP 140/64
[2018-06-29 08:04] LABS: HEMOGLOBIN 11.6 G/DL (11.5-16.0); MEAN PLATELET VOLUME 10.6 FL (7.4-10.4); RED BLOOD COUNT 3.64 10^6/uL (4.35-5.85); RED CELL DISTRIBUTION WIDTH 13.5 % (10.0-14.5); WHITE BLOOD COUNT 11.1 10^3/uL (4.3-11.0)
[2018-06-29 08:20] LABS: BUN/CREATININE RATIO 8; CALCIUM 8.3 MG/DL (8.5-10.1); CARBON DIOXIDE 21 MMOL/L (21-32); CHLORIDE 111 MMOL/L (98-107); GFR ESTIMATED > 60; GLUCOSE 87 MG/DL (70-105); POTASSIUM 3.7 MMOL/L (3.6-5.0); SODIUM 140 MMOL/L (135-145)
[2018-06-29] MEDS: PANTOPRAZOLE 40 MG (PROTONIX) VIAL IV SCH (11:32)
[2018-06-29] MEDS: CIPROFLOXACIN 400 MG/D5W 200 ML (PRE-MIX) IV SCH ×2 (11:33→22:42)
[2018-06-29 12:00] VITALS: BP 146/67
[2018-06-29] MEDS: HYDROcodone/APAP 7.5 MG/325 MG (LORTAB, LORCET PLUS) TABLET PO PRN ×2 (13:19→19:44)
[2018-06-29 15:55] VITALS: BP 131/63
--- NOTE | 2018-06-29 16:40 | Progress Note (SOAP) ---
Subjective Date Seen by a Provider: Jun 29, 2018 Time Seen by a Provider: 16:00 Subjective/Events-last exam doing well. pain controlled. tolerating ice chips with no nausea/vomiting. improving bowel sounds. ambulating well. Objective Exam Vital Signs Date Time Temp Pulse Resp B/P (MAP) Pulse Ox O2 Delivery O2 Flow Rate FiO2 06/29/18 12:00 97.2 102 22 146/67 (93) 97 Room Air 06/29/18 08:16 97 Room Air 06/29/18 08:00 97.9 90 20 140/64 (89) 97 Room Air 06/29/18 04:00 98.4 89 20 120/58 (78) 97 Room Air 06/28/18 23:57 97.2 89 20 131/63 (85) 97 Room Air 06/28/18 20:25 98.6 81 20 133/60 (84) 93 Room Air 06/28/18 20:00 Room Air I & O 06/29/18 07:00 Intake Total 1500 ml Output Total 1025 ml Balance 475 ml Capillary Refill : Less Than 3 Seconds General Appearance: No Apparent Distress HEENT: PERRL/EOMI Neck: Full Range of Motion Respiratory: Chest Non Tender, Lungs Clear, Normal Breath Sounds Cardiovascular: Regular Rate, Rhythm Gastrointestinal: soft, tenderness, other (inc clean/dry, mild SS BEATRIZ drainage) Extremity: Normal Capillary Refill Neurologic/Psychiatric: Alert, Oriented x3 Skin: Normal Color Lymphatic: No Adenopathy Results Lab Laboratory Tests 06/29/18 07:38: White Blood Count 11.1H, Red Blood Count 3.64L, Hemoglobin 11.6, Hematocrit 34L , Mean Corpuscular Volume 94, Mean Corpuscular Hemoglobin 32, Mean Corpuscular Hemoglobin Concent 34, Red Cell Distribution Width 13.5, Platelet Count 236, Mean Platelet Volume 10.6H, Sodium Level 140, Potassium Level 3.7, Chloride Level 111H, Carbon Dioxide Level 21, Anion Gap 8, Blood Urea Nitrogen 5L, Creatinine 0.60, Estimat Glomerular Filtration Rate > 60, BUN/Creatinine Ratio 8 , Glucose Level 87, Calcium Level 8.3L Microbiology 06/26/18 MRSA Screen - Final, Complete MRSA not isolated Assessment/Plan Assessment/Plan Assess & Plan/Chief Complaint s/p expl lap, small bowel resection, lysis of adhesions and multiple recurrent incisional hernia repair primarily. suspect crohn's due to diffuse adhesions, hx of intermittent crampy abd pain with diarrhea. also introp finding of diffuse mesenteric fat creeping small bowel. will continue abx for now due to contamination and [place](morbid obesity and limited mobility). continue ambulation. start clear liquids. Clinical Quality Measures DVT/VTE Risk/Contraindication: Risk Factor Score Per Nursin RFS Level Per Nursing on Admit: 3=High PEARL ROLLE MD Jun 29, 2018 4:40 pm
[2018-06-29 19:30] VITALS: BP 133/60
[2018-06-30] MEDS: PANTOPRAZOLE 40 MG (PROTONIX) VIAL IV SCH ×2 (00:08→12:09)
[2018-06-30] MEDS: metroNIDAZOLE 500 MG/100 ML IVPB (PRE-MIX) IV SCH ×4 (00:09→23:19)
[2018-06-30] MEDS: HYDROcodone/APAP 7.5 MG/325 MG (LORTAB, LORCET PLUS) TABLET PO PRN ×3 (00:09→23:19)
[2018-06-30] MEDS: NS W/KCL 20 MEQ/L 1,000 ML IV SCH ×4 (00:09→23:37)
[2018-06-30 00:30] VITALS: BP 133/60
[2018-06-30 04:00] VITALS: BP 140/63
[2018-06-30 08:11] VITALS: BP 126/71
--- NOTE | 2018-06-30 11:56 | Physical Therapy Evaluation ---
PT Evaluation-General Medical Diagnosis Admission Date Jun 25, 2018 at 21:44 Medical Diagnosis: ventral abdominal incision Onset Date: Jun 25, 2018 Therapy Diagnosis Therapy Diagnosis: debility Height/Weight Height (Feet): 5 Height (Inches): 2.00 Weight (Pounds): 238 Weight (Ounces): 1.8 Precautions Precautions/Isolations: Standard Precautions Weight Bear Status Right Lower Extremity: Right Full Weight Bearing Left Lower Extremity: Left Full Weight Bearing Referral Physician: Lesly Reason for Referral: Evaluation/Treatment Medical History Pertinent Medical History: DM, HTN, Hypothroidism Additional Medical History morbid obesity Current History ED secondary to abdominal pain and cramping Reviewed History: Yes Social History Home: Single Level Current Living Status: Children Entry Into Home: Stairs With Railing PT Steps Into Home: 2 Prior/Core FIM Prior Level of Function Functional [place] Measure 0=Not Assessed/NA 4=Minimal Assistance 1=Total Assistance 5=Supervision or Setup 2=Maximal Assistance 6=Modified [place] 3=Moderate Assistance 7=Complete [place] Bed Mobility: 7 Transfers (B,C,W/C) (FIM): 7 Gait: 7 Locomotion: 7 PT Evaluation-Current Subjective Patient agrees to PT. She reports she is feeling better today. Pain Numeric Pain Scale: 5-Moderate Pain Location: Medial Location Body Site: Abdomen Pain Description: Acute Objective Patient Orientation: Normal For Age Problem Solving: Good Attachments: IV ROM/Strength ROM Lower Extremities bilateral LE WFL Strength Lower Extremities 4/5 grossly bilateral LE Integumentary/Posture Integumentary refer to nursing notes Bowel Incontinence: No Bladder Incontinence: No Posture erect Neuromuscular (Tone, Coordination, Reflexes) grossly intact Sensory Vision: Functional Hearing: Functional Sensation Right Lower Extremit: Intact Sensation Left Lower Extremity: Intact Transfers Functional [place] Measure 0=Not Assessed/NA 4=Minimal Assistance 1=Total Assistance 5=Supervision or Setup 2=Maximal Assistance 6=Modified [place] 3=Moderate Assistance 7=Complete [place] Transfers (B, C, W/C) (FIM): 6 Scootin Rollin Supine to/from Sit: 6 Sit to/from Stand: 6 bed flat Gait Mode of Locomotion: Walk Anticipated Mode of Locomotion: Walk Gait (FIM): 6 Distance (FIM): 3=150 ft Distance: 400' Gait Level of Assist: 6 Gait Assistive Device: FWW Comments/Gait Description FWW to decrease abdominal discomfort only/patient has FWW at home from prior use if needed. Stairs Stairs (FIM): 2 #of Steps: 2 Level of Assist: 5 step to Balance Sitting Static: Normal Sitting Dynamic: Normal Standing Static: Normal Standing Dynamic: Normal Assessment/Needs 73 y.o. female, will be seen short term to address functional mobility. Patient is up with nursing PRN in hallway without difficulty. Rehab Potential: Good PT Short Term Goals Short Term Goals Time Frame: Jul 06, 2018 Transfers (B,C,W/C) (FIM): 6 Gait (FIM): 6 Distance (FIM): 3=150 ft Gait Distance Comment: 500' Gait Level of Assist: 6 Gait Assistive Device: None, FWW PT Plan Treatment/Plan Treatment Plan: Continue Plan of Care Treatment Plan: Education, Functional Activity Humberto, Functional Strength, Gait , Safety, Therapeutic Exercise Treatment Duration: Jul 06, 2018 Frequency: 6 times per week Estimated Hrs Per Day: .25 hour per day Patient and/or Family Agrees t: Yes Discharge Recommendations Therapy D/C Recommendations: Home w/ Family Support Time/GCodes Time In: 1115 Time Out: 1140 Total Billed Treatment Time: 25 Total Billed Treatment 1 visit EVModC 25 min G Codes Necessary: No CLAYTON MACIEL PT Jun 30, 2018 11:56
[2018-06-30 12:00] VITALS: BP 129/78
[2018-06-30] MEDS: CIPROFLOXACIN 400 MG/D5W 200 ML (PRE-MIX) IV SCH (12:09)
--- NOTE | 2018-06-30 13:50 | Progress Note (SOAP) ---
Subjective Date Seen by a Provider: Jun 30, 2018 Time Seen by a Provider: 13:30 Subjective/Events-last exam doing well. pain controlled. passing flatus. working with PO/OT due to weakness/ instability even before surgery. Objective Exam Vital Signs Date Time Temp Pulse Resp B/P (MAP) Pulse Ox O2 Delivery O2 Flow Rate FiO2 06/30/18 12:00 98.8 90 20 129/78 (95) 95 Room Air 06/30/18 08:11 98.0 87 16 126/71 (89) 96 Room Air 06/30/18 04:00 98.0 96 18 140/63 (88) 96 Nasal Cannula 1.00 06/30/18 00:30 98.7 90 19 133/60 (84) 95 Nasal Cannula 1.00 06/29/18 19:30 98.4 91 18 133/60 (84) 99 Room Air 06/29/18 15:55 98.7 85 18 131/63 (85) 97 Room Air I & O 06/30/18 07:00 Intake Total 2560 ml Output Total 3345 ml Balance -785 ml Capillary Refill : Less Than 3 Seconds General Appearance: No Apparent Distress HEENT: PERRL/EOMI Neck: Full Range of Motion Respiratory: Chest Non Tender, Lungs Clear, Normal Breath Sounds Cardiovascular: Regular Rate, Rhythm Gastrointestinal: normal bowel sounds, soft, tenderness, other (wound clean/dry , minimal BEATRIZ drainage) Extremity: Normal Capillary Refill Neurologic/Psychiatric: Alert, Oriented x3 Skin: Normal Color Lymphatic: No Adenopathy Results Lab Microbiology 06/26/18 MRSA Screen - Final, Complete MRSA not isolated Assessment/Plan Assessment/Plan Assess & Plan/Chief Complaint s/p expl lap, small bowel resection, lysis of adhesions and multiple recurrent incisional hernia repair primarily. suspect crohn's due to diffuse adhesions, hx of intermittent crampy abd pain with diarrhea. also introp finding of diffuse mesenteric fat creeping small bowel. will continue abx for now due to contamination and [place](morbid obesity and limited mobility). continue ambulation and consult PT/OT as well as ARU evaluation. passing flatus and will advance to dys3 diet. Clinical Quality Measures DVT/VTE Risk/Contraindication: Risk Factor Score Per Nursin RFS Level Per Nursing on Admit: 3=High PEARL ROLLE MD Jun 30, 2018 1:50 pm
--- NOTE | 2018-06-30 15:16 | Occupational Therapy Eval ---
OT Evaluation-General/PLF Medical Diagnosis Admission Date Jun 25, 2018 at 21:44 Medical Diagnosis: ventral abdominal incision Onset Date: Jun 25, 2018 Therapy Diagnosis Therapy Diagnosis: Weakness Height/Weight Height (Feet): 5 Height (Inches): 2.00 Weight (Pounds): 238 Weight (Ounces): 1.8 Precautions Precautions/Isolations: Standard Precautions Safety Interventions: None Weight Bear Status Weight Bearing Restriction: Weight Bearing/Tolerated Referral Physician: Lesly Referral Reason: Activity Tolerance, Self Care, Evaluation/Treatment, Strengthening/ROM Medical History Pertinent Medical History: DM, HTN, Hypothroidism Additional Medical History hysterectomy, carotid disease, Left ankle fx, bilateral wrist fx. Current History Pt. began having abdominal pain. Came to hospital. Discovered that she had abdominal hernia with colon involvement. Underwent hernia repair with small bowl resection. Reviewed History: Yes Social History Home: Single Level Current Living Status: Children Entry Into Home: Stairs With Railing Steps Into Home: 2 ADL-Prior Level of Function ADL PLOF Comments Pt. states that she was independent previous to this hospitalization. Does use a toileting device to cleanse self. DME/Equipment: Shower Occupation: Retired from [employer] Drive Self: Yes OT Current Status Subjective Pt. does not report pain, but indicates discomfort with movement in abdominal area. Appearance Pt. in bed. Agrees to work with OT. Mental Status/Objective Patient Orientation: Person, Place, Time, Situation Current Glasses/Contacts: Yes Upper Extremity ROM WFL ADL-Treatment Functional [place] Measure 0=Not Assessed/NA 4=Minimal Assistance 1=Total Assistance 5=Supervision or Setup 2=Maximal Assistance 6=Modified [place] 3=Moderate Assistance 7=Complete IndependenceIRFPAI Quality Coding Scale 6 Independent with activity with or without an assistive device 5 Patient requires set up or clean up by helper. Patient completes activity by themselves 4 Supervision or touching assist (CGA). [place] provide cues , steadying assist 3 The helper provides less than half the effort to complete the activity 2 The helper provides more than half the effort to complete the activity 1 Dependent. The helper does all the effort to complete an activity 7 Patient refused to complete or attempt activity 9 The patient did not perform the activity before the current illness or injury 88 Not attempted due to Medical conditions or safety concerns Grooming (FIM): 5 (Set up to comb hair.) Lower Body Dressing (FIM): 2 (Pt. unable to reach her feet to doff/don socks.) Toileting (FIM): 2 (Pt. attempts to cleanse front jaimee area after toileting, but unable to reach it. OT does this for her, and then provides toilet tongs with instruction.) Transfers (B, C, W/C) (FIM): 5 (SBA to transfer supine-sit and sit-stand. Pt. ambulates safely with walker with Mod I approximately 200 feet. ) Toilet/Commode Transfer (FIM): 5 Other Treatments Pt. is educated on AE to increase independence with daily tasks. Will provide equipment to use at this facility tomorrow. Verbalizes understanding. Pt. issued toilet tongs to use for increased toileting independence. After ambulating in hallway, pt. toileted with assistance to cleanse self. Transferred back to bed with SBA and all needs met. Education OT Patient Education: Correct positioning, Energy conservation, Modified ADL techniques, Progress toward Goal/Update tx plan, Purpose of tx/functional activities, Reviewed precautions, Rehab process, Transfer techniques, Use of adapted equipment Teaching Recipient: Patient Teaching Methods: Demonstration, Discussion Response to Teaching: Verbalize Understanding, Return Demonstration OT Short Term Goals Short Term Goals Transfers (B,C,W/C) (FIM): 6 1=Demonstrate adherence to instructed precautions during ADL tasks. 2=Patient will verbalize/demonstrate understanding of assistive devices/ modifications for ADL. 3=Patient will improve strength/tolerance for activity to enable patient to perform ADL's. OT Senior Living Goals Chute Operator Goals Time Frame: Jul 07, 2018 Eating (FIM): 6 Grooming(FIM): 6 Bathing(FIM): 6 Upper Body Dressing(FIM): 6 Lower Body Dressing(FIM): 6 Toileting(FIM): 6 Transfers (B,C,W/C) (FIM): 6 Toilet/Commode Transfer(FIM): 6 Shower Transfer(FIM): 5 Additional Goals: 1-Demonstrate ADL Tasks, 2-Verbalize Understanding, 3- ImproveStrength/Humberto 1=Demonstrate adherence to instructed precautions during ADL tasks. 2=Patient will verbalize/demonstrate understanding of assistive devices/ modifications for ADL. 3=Patient will improve strength/tolerance for activity to enable patient to perform ADL's. OT Education/Plan Problem List/Assessment Assessment: Decreased Activ Tolerance, Impaired I ADL's, Impaired Self-Care Skills Discharge Recommendations Plan/Recommendations: Continue POC Therapy D/C Recommendations: Home w/ Family Support, Occupational Therapy Home Care Equpiment Recommendations-D/C: Bath Chair, Hip Kit Treatment Plan/Plan of Care Treatment,Training & Education: Yes Patient would benefit from OT for education, treatment and training to promote independence in ADL's, mobility, safety and/or upper extremity function for ADL' s. Plan of Care: ADL Retraining, Caregiver Training, Functional Mobility, UE Funct Exercise/Act Treatment Duration: Jul 07, 2018 Frequency: 5 times per week Estimated Hrs Per Day: .25 hour per day Agreement: Yes Rehab Potential: Good Time/GCodes Start Time: 13:25 Stop Time: 14:00 Total Time Billed (hr/min): 35 Billed Treatment Time 1, EVM x 15minutes, ADL x 20minutes TYLOR BARBOSA OT Jun 30, 2018 15:16
[2018-06-30 15:45] VITALS: BP 163/76
[2018-06-30 20:10] VITALS: BP 146/64
[2018-07-01 00:02] VITALS: BP 155/68
[2018-07-01] MEDS: PANTOPRAZOLE 40 MG (PROTONIX) VIAL IV SCH ×2 (00:17→11:38)
[2018-07-01] MEDS: CIPROFLOXACIN 400 MG/D5W 200 ML (PRE-MIX) IV SCH ×2 (00:17→11:38)
[2018-07-01 04:02] VITALS: BP 130/63
[2018-07-01] MEDS: metroNIDAZOLE 500 MG/100 ML IVPB (PRE-MIX) IV SCH (06:28)
[2018-07-01 08:00] VITALS: BP 146/67
[2018-07-01] MEDS: NS W/KCL 20 MEQ/L 1,000 ML IV SCH (08:30)
--- NOTE | 2018-07-01 10:03 | Physical Therapy Daily Note ---
PT Daily Note-Current Subjective Patient reports she is feeling much better today. Pain Numeric Pain Scale: 3 Location: Medial, Lower Location Body Site: Abdomen Pain Description: Acute Mental Status Patient Orientation: Normal For Age Attachments: IV Transfers Functional [place] Measure 0=Not Assessed/NA 4=Minimal Assistance 1=Total Assistance 5=Supervision or Setup 2=Maximal Assistance 6=Modified [place] 3=Moderate Assistance 7=Complete IndependenceIRFPAI Quality Coding Scale 6 Independent with activity with or without an assistive device 5 Patient requires set up or clean up by helper. Patient completes activity by themselves 4 Supervision or touching assist (CGA). [place] provide cues , steadying assist 3 The helper provides less than half the effort to complete the activity 2 The helper provides more than half the effort to complete the activity 1 Dependent. The helper does all the effort to complete an activity 7 Patient refused to complete or attempt activity 9 The patient did not perform the activity before the current illness or injury 88 Not attempted due to Medical conditions or safety concerns Transfers (B, C, W/C) (FIM): 7 Scootin Rollin Supine to/from Sit: 7 Sit to/from Stand: 7 Bed to/from Chair: 7 Weight Bearing Right Lower Extremity: Right Full Weight Bearing Left Lower Extremity: Left Full Weight Bearing Gait Training Gait (FIM): 6 Distance (FIM): 3=150 ft Distance: 800' Gait Level of Assist: 6 Gait Assistive Device: FWW patient utilizes FWW for abdominal comfort only. Demonstrates safe and functional independent gait without. Assessment PT instructed patient and staff to ambulate PRN in hallway. Patient is currently at independent PLOF with all gross motor skills and does not requires skilled PT at this time. PT to dismiss patient from services. coordinator notified. PT Short Term Goals Short Term Goals Time Frame: Jul 06, 2018 Transfers (B,C,W/C) (FIM): 6 Gait (FIM): 6 Distance (FIM): 3=150 ft Gait Distance Comment: 500' Gait Level of Assist: 6 Gait Assistive Device: None, FWW PT Plan Treatment/Plan Treatment Plan: Discontinue PT, goals met Treatment Plan: Education, Functional Activity Humberto, Functional Strength, Gait , Safety, Therapeutic Exercise Treatment Duration: Jul 06, 2018 Frequency: 6 times per week Estimated Hrs Per Day: .25 hour per day Patient and/or Family Agrees t: Yes Time/GCodes Time In: 930 Time Out: 944 Total Billed Treatment Time: 14 Total Billed Treatment 1 visit FA 14 min CLAYTON MACIEL PT Jul 01, 2018 10:03
--- NOTE | 2018-07-01 12:13 | Progress Note (SOAP) ---
Subjective Date Seen by a Provider: Jul 01, 2018 Time Seen by a Provider: 10:30 Subjective/Events-last exam doing well. substantial flatus but no BM. tolerating dys3 diet. pain controlled. continue IV abx due to peritoneal contamination. continue PT and ambulation Objective Exam Vital Signs Date Time Temp Pulse Resp B/P (MAP) Pulse Ox O2 Delivery O2 Flow Rate FiO2 07/01/18 08:00 98.6 92 20 146/67 (93) 97 Room Air 07/01/18 04:02 97.8 93 17 130/63 (85) 95 Room Air 07/01/18 00:02 97.6 95 18 155/68 (97) 96 Room Air 06/30/18 20:10 99.1 95 16 146/64 (91) 99 Room Air 06/30/18 15:45 98.4 88 18 163/76 (105) 93 Room Air I & O 07/01/18 07:00 Intake Total 3290 ml Output Total 60 ml Balance 3230 ml Capillary Refill : Less Than 3 SecondsLess Than 3 Seconds General Appearance: No Apparent Distress HEENT: PERRL/EOMI Neck: Full Range of Motion Respiratory: Chest Non Tender, Lungs Clear, Normal Breath Sounds Cardiovascular: Regular Rate, Rhythm Gastrointestinal: normal bowel sounds, non tender, soft, other (incision clean/ dry, BEATRIZ SS) Extremity: Normal Capillary Refill Neurologic/Psychiatric: Alert, Oriented x3 Skin: Normal Color Lymphatic: No Adenopathy Results Lab Microbiology 06/26/18 MRSA Screen - Final, Complete MRSA not isolated Assessment/Plan Assessment/Plan Assess & Plan/Chief Complaint s/p expl lap, small bowel resection, lysis of adhesions and multiple recurrent incisional hernia repair primarily. suspect crohn's due to diffuse adhesions, hx of intermittent crampy abd pain with diarrhea. also introp finding of diffuse mesenteric fat creeping small bowel. will continue abx for now due to peritoneal contamination(morbid obesity and limited mobility). continue ambulation. states weak for past several months. passing flatus and will advance to dys3 diet. will transfer to [facility] status due to IV abx. Clinical Quality Measures DVT/VTE Risk/Contraindication: Risk Factor Score Per Nursin RFS Level Per Nursing on Admit: 3=High PEARL ROLLE MD Jul 01, 2018 12:12 pm
[2018-07-01] MEDS ORDERED: CIPR500T4 PO (12:15)
[2018-07-01] MEDS ORDERED: METR500T21 PO (12:15)
[2018-07-01] MEDS ORDERED: HYDR-34 PO (12:15)
--- NOTE | 2018-07-01 12:17 | Discharge Inst-Surgical ---
D/C Lap Instructions-KIDO New, Converted, or Re-Newed RX: RX on Chart Activity as tolerated No driving for 24 hours No driving while on pain medications Incentive Spirometry use every 2 hours while awake low residue diet 2 weeks. ambulate in lucas QID. continue cipro and flagyl IV BID due to peritoneal contamination intraop and high risk absecess. Symptoms to Report: Fever over 101 degree F, Nausea/Vomiting Infection Signs and Symptoms to report: Increased redness, Foul odor of wound, Increased drainage Bathing instructions: May shower Operative Area Clean/Dry; Keep incision clean/dry If any problems/questions: Contact your physician or go to Emergency Room PEARL ROLLE MD Jul 01, 2018 12:17 pm
--- NOTE | 2018-07-02 00:02 | DISCHARGE SUMMARY ---
DATE OF SERVICE: DISCHARGE SUMMARY WELL A HISTORY AND PHYSICAL FOR SWING BED ADMISSION ATTENDING PRIMARY CARE PHYSICIAN: Gabriella Manriquez DO ADMISSION DIAGNOSES: Abdominal pain, nausea and vomiting, partial small-bowel obstruction. POSTOPERATIVE DIAGNOSES: Incarcerated recurrent ventral abdominal incisional hernia. Dense adhesions and chronic inflammatory changes. OTHER DIAGNOSES: Degenerative joint disease, osteoporosis, fibromyalgia, hypothyroid, [id number] diabetes, anxiety, depression, vitamin B12 deficiency. PRINCIPAL PROCEDURES: Exploratory laparotomy, lysis of adhesions, small bowel resection and anastomosis, small bowel repair, repair of multiple recurrent ventral abdominal incisional hernias primarily. No additional procedures. No complications. DISPOSITION: To swing bed in stable condition with need for IV antibiotics due to a small bowel contamination intraoperatively as well as a history of diabetes and morbid obesity and high risk of intra-abdominal abscess formation for suspected inflammatory bowel disease. The patient is a 72-year-old female who presented to the Emergency Department with a 2-day history of abdominal distention, crampy pain which progressed to nausea and vomiting. A CT scan was performed, which did show dilated loops of small bowel as well as stomach. An incisional hernia was also identified. Upon examination, she did have a hernia identified and this was nonreducible and recurrent. She has had previous multiple open surgeries before in the past. The patient was otherwise stable and afebrile and did not have any peritoneal signs. She was admitted for IV hydration as well as pain control as well as surgery. PAST MEDICAL HISTORY: Gastroesophageal reflux disease, fibromyalgia, degenerative joint disease, hypothyroid, diabetes, anxiety, depression, vitamin B12 deficient anemia. PAST SURGERIES: Open cholecystectomy, open hysterectomy, open ventral abdominal incisional hernia repair. Laparoscopic recurrent ventral abdominal hernia repair. ALLERGIES: MORPHINE, SULFA. MEDICATIONS: Levothyroxine 100 mcg daily, losartan 100 mg daily, cholecalciferol daily, vitamin B12 250 mcg daily. SOCIAL HISTORY: Negative for smoke, negative for alcohol. FAMILY HISTORY: Noncontributory. The patient was admitted and started on IV fluids as well as IV antibiotics. She does not have much out of the nasogastric tube and the nasogastric tube was removed. On clinical examination, her abdomen was soft and she was found to have an incisional hernia, which was painful to palpation, however, no peritoneal signs. On 06/27/2018, the patient went for repair of the recurrent ventral abdominal incisional hernia; however, the hernia was more extensive. The hernia detected on CT scan was recurrent incisional hernia; however, upon further exploration, there were multiple other small hernias within the previous midline incision. There was also a very dense adhesion tissue, which took greater than 90 minutes to proceed with lysis of adhesions. The family had reported that she had multiple adhesion tissues in the past, and upon further questioning, after the surgery, she has had a crampy abdominal pain as well as diarrhea since her early 40s. Upon further exploration, the patient was found to have a larger enterotomy greater than 50% circumference of the small bowel and it was decided to resect this segment as well as a segment just distal to this with adherent previous mesh which was excised and reanastomosed. A slightly more distal was a small enterotomy which was encompassed 25% of the lumen, which was closed primarily. The multiple hernias were connected with cautery and we decided to proceed with primary repair using #1 PDS sutures and taking small frequent fascial bites starting superiorly and inferiorly and tying this in the middle. The patient did well after surgery and was sent back to the general surgical floor. She did have adequate pain control with STEREOTYPE MOLDER pump. We also proceed with DVT prophylaxis with calf SCDs. Her gastrointestinal tract was slow to recover; however, she did develop bowel sounds and passing the flatus and was started on a clear liquid diet, which was advanced to a DYS3 low residue diet. Also intraoperatively, it was found that she had extensive chronic inflammatory changes and edema as well as mesenteric fat creeping along the entirety of the small bowel that was exposed most likely indicating an undiagnosed inflammatory bowel disease, most likely Crohn's disease. Also due to the contamination, a Sergo-Laguerre drain was placed. Her hospital course was uneventful and she was afebrile. Physical therapy and occupational therapy was consulted and she was able to ambulate in a moderate fashion. She states that she has had some difficulty at home and a significant amount of weight gain in the past 3 years since the passing of her and it has been harder for her to ambulate at home. Due to also the contamination as well as a history of other comorbid medical features including diabetes and morbid obesity as well as suspected inflammatory bowel disease, she is at high risk of intra-abdominal abscess formation and we will recommend continue IV antibiotics. She was transferred on 07/01/2018. HOME GOING INSTRUCTIONS: Low residue diet for the next 6 weeks. MEDICATIONS: Resume previous home medications as well as ciprofloxacin 400 mg IV q. 12 hours, metronidazole 500 mg q. 12 hours, Lortab 7.5 mg p.r.n. pain. ACTIVITY: As tolerated; however, we want her to ambulate as much as possible 5 to 6 times a day with a walker. RESTRICTIONS: Only restriction is no heavy lifting or exertion or soaking of the wound. DISPOSITION: To swing bed status in stable condition. Job ID: [id number] DocumentID: [id number] Dictated Date: 07/01/2018 13:35:14 Coordinator Mining Products Date: 07/02/2018 00:01:47 Dictated By: PEARL ROLLE MD MTDD
== END 2018-07-01 13:21 | disposition swing bed (61) | DRG 330 ==
LOC: EDUNIT# 19:30 → ER 19:31 → 4TH 21:44
PROVIDERS: ADMIT Surgery; ATTEND Surgery
PROC: 0D9670Z Drainage of Stomach with Drainage Device, Via Natural or Artificial Opening (ICD-10-PCS; 2018-06-25)
PROC: 0DB80ZZ Excision of Small Intestine, Open Approach (ICD-10-PCS; 2018-06-27)
PROC: 0DQ80ZZ Repair Small Intestine, Open Approach (ICD-10-PCS; 2018-06-27)
PROC: 0WQF0ZZ Repair Abdominal Wall, Open Approach (ICD-10-PCS; principal; 2018-06-27 15:58)
DX: K43.0 Incisional hernia with obstruction, without gangrene (principal); N39.0 Urinary tract infection, site not specified; E86.0 Dehydration; E11.9 Type 2 diabetes mellitus without complications; I10 Essential (primary) hypertension; K21.9 Gastro-esophageal reflux disease without esophagitis; K44.9 Diaphragmatic hernia without obstruction or gangrene; E66.01 Morbid (severe) obesity due to excess calories; Z68.41 Body mass index [BMI] 40.0-44.9, adult; E89.0 Postprocedural hypothyroidism; M81.0 Age-related osteoporosis without current pathological fracture; M79.7 Fibromyalgia; M54.9 Dorsalgia, unspecified; G47.9 Sleep disorder, unspecified; F41.9 Anxiety disorder, unspecified; F32.9 Major depressive disorder, single episode, unspecified; D51.9 Vitamin B12 deficiency anemia, unspecified; Z86.010 Personal history of colon polyps; M19.90 Unspecified osteoarthritis, unspecified site; Z23 Encounter for immunization
CPT/HCPCS: 36415; 71045; 74177; 76937; 80048; 80053; 81000; 83690; 84484; 85025; 85027; 87081; 90686; 93005; 94664; 94760; 96374; 96375

== ENCOUNTER 2018-07-01 10:12 | Inpatient (IN) | payer MEDICARE ==
[~2018-07-01] VITALS: Ht 157.5 cm; Wt 108.0 kg
[~2018-07-01 10:12] MED LIST changes: +CHOL10007 PO; +CYAN250T PO; +LEVO100T7 PO; +LISI-552 PO; +LOSA100T8 PO
[2018-07-01] MEDS ORDERED: METR500T21 PO (12:15)
[2018-07-01] MEDS ORDERED: HYDR-34 PO (12:15)
[2018-07-01] MEDS ORDERED: CIPR500T4 PO (12:15)
[2018-07-01] MEDS ORDERED: fentaNYL INJECTION 100 MCG/2 ML AMP IV PRN (13:45)
[2018-07-01] MEDS ORDERED: LACTATED RINGERS 1,000 ML IV PRN (13:45)
[2018-07-01] MEDS ORDERED: ONDANSETRON 4 MG/2 ML (SDV) Z0FRAN IV PRN (13:45)
[2018-07-01] MEDS ORDERED: metroNIDAZOLE 500MG/100ML IVPB 100 ML IV SCH (14:00)
[2018-07-01] MEDS ORDERED: CIPROFLOXACIN IV 400MG/200ML 200 ML IV SCH (14:00)
--- NOTE | 2018-07-01 14:07 | Physical Therapy Progress Note ---
Therapy Progress Note Order received for swingbed eval for PT. Patient has already been discharged from PT services. PT instructed patient and staff to ambulate PRN in hallway. Patient is currently at independent PLOF with all gross motor skills and does not requires skilled PT at this time. coordinator notified. ZEN MCKINLEY PT Jul 01, 2018 14:07
--- OUTSIDE RECORDS SUMMARY | 2018-07-01 14:16 | XMS REPORT | Clinical Summary ---
Author Author [facility] Organization [facility] Address Unknown Phone Unavailable Care Team Providers Care Certified Registered Dental Assistant Name Role Phone Gabriella Manriquez MD PCP Jennifer Rizo PA-C Unavailable Source Comments Some departments are not documenting in the electronic medical record. If you do not see the information that you expected, contact Release of Information in the Health Information Management department at [phone] for further assistance in locating additional records.[facility] Allergies Active Allergy Reactions Severity Noted Date [...] today since she was driving up from [place], [place], and didn't want to take a [...]
--- OUTSIDE RECORDS SUMMARY | 2018-07-01 14:18 | XMS REPORT | Continuity of Care Document ---
Author Author [facility] Organization [facility] Address Unknown Phone Unavailable Allergies Active Description Code Type Severity Reaction Onset Reported/Identified Relationship to Patient Clinical Status Yes Sulfa (Sulfonamide Antibiotics) [id number] Drug Allergy Unknown N/A 2006 Yes morphine [id number] Drug Allergy Moderate RED RASH WITH H 11/13/2017 Medications There is no data. Problems Date Dx Coded Attending Type Code Diagnosis Diagnosed By 03/25/2011 Ot 719.41 JOINT PAIN- LDER 03/25/2011 Ot 719.61 JOINT SYMPTOM NEC-LDER 03/25/2011 Ot V57.1 PHYSICAL THERAPY NEC 04/18/2013 IVÁN WILSON DOQUELINE S Ot 244.9 04/18/2013 SELAMNDER DO, GABRIELLA S Ot 266.2 04/18/2013 SELAMNDER [...] OSCAR, MADELEINE M Ot V67.09 11/12/2014 STEVE FRENANDEZ GABRIELLA S Ot 433.10 11/12/2014 Ot V76.12 [...] ORENDER DO, GABRIELLA S Ot V76.12 06/13/2015 CERDIC OSCAR, MADELEINE Conn Ot V72.84 06/13/2015 CEDRIC OSCAR, MADELEINE Conn Ot 562.10 06/13/2015 CEDRIC OSCAR, MADELEINE Conn Ot V12.72 06/13/2015 CEDRIC OSCAR, MADELEINE Conn Ot V67.09 06/13/2015 SELAMNDER DO, GABRIELLA S Ot 433.10 06/13/2015 SELAMNDER DO, GABRIELLA S Ot 719.47 06/13/2015 SLEAMNDER DO, GABRIELLA S Ot V76.12 03/10/2016 Ot [...] FOR MALIGNANT NE 03/18/2017 JOSE ALFREDO LLOYD DIRECTOR MEETINGS Ot R04.0 EPISTAXIS 03/18/2017 JOSE ALFREDO LLOYD DIRECTOR MEETINGS Ot S02.2XXA FRACTURE OF NASAL BONES, INIT ENCNTR FOR 03/18/2017 JOSE ALFREDO LLOYD DIRECTOR MEETINGS Ot S09.90XA UNSPECIFIED INJURY OF HEAD, INITIAL ENCO 03/18/2017 JOSE ALFREDO LLOYD DIRECTOR MEETINGS Ot S62.91XA UNSP FRACTURE OF RIGHT WRIST AND HAND, I 03/18/2017 JOSE ALFREDO LLOYD DIRECTOR MEETINGS Ot W01.198A FALL SAME LEV FROM SLIP/TRIP W STRIKE AG 03/18/2017 Ot V76.12 OTH SCREEN MAMMO-MALIGN NEOPLASM OF PJ 03/18/2017 Ot 722.91 DISC DIS NEC /NOS-CERV 03/18/2017 Ot 787.20 DYSPHAGIA, UNSPECIFIED 03/18/2017 JOEY KEEN SUPERVISOR INSPECTING Ot Z12.31 ENCNTR SCREEN MAMMOGRAM FOR MALIGNANT NE 05/11/2017 ORENDER DO, GABRIELLA S Ot Z12.31 ENCNTR SCREEN MAMMOGRAM FOR MALIGNANT NE 05/11/2017 Ot 787.20 DYSPHAGIA, UNSPECIFIED 05/11/2017 JOEY KEEN SUPERVISOR INSPECTING Ot Z12.31 ENCNTR SCREEN MAMMOGRAM FOR MALIGNANT NE 05/11/2017 ORENDER DO, GABRIELLA S Ot Z12.31 ENCNTR SCREEN MAMMOGRAM FOR MALIGNANT NE 05/17/2017 ORENDER DO, GABRIELLA S Ot Z12.31 ENCNTR SCREEN MAMMOGRAM FOR MALIGNANT NE 05/19/2017 Ot 787.20 DYSPHAGIA, UNSPECIFIED 05/19/2017 JOEY KEEN SUPERVISOR INSPECTING Ot Z12.31 ENCNTR SCREEN MAMMOGRAM FOR MALIGNANT [...] Elizabeth Ot F41.9 ANXIETY DISORDER, UNSPECIFIED 11/13/2017 [place] FILIBERTO Elizabeth Ot M25.531 PAIN IN RIGHT WRIST 11/13/2017 [facility] FILIBERTO Elizabeth Ot S52.201A UNSP FRACTURE OF SHAFT OF RIGHT ULNA, IN 11/13/2017 [facility] FILIBERTO Elizabeth Ot S52.571A OTH INTARTIC FRACTURE OF LOWER END OF RI 11/13/2017 [place] FILIBERTO K Ot W00.0XXA FALL ON SAME LEVEL DUE TO ICE AND SNOW, 11/13/2017 [facility] FILIBERTO K Ot Z88.2 ALLERGY STATUS TO SULFONAMIDES STATUS 11/13/2017 [facility] FILIBERTO K Ot Z88.5 ALLERGY STATUS TO NARCOTIC AGENT STATUS 11/13/2017 [facility] Ot Z90.710 ACQUIRED ABSENCE OF BOTH CERVIX AND UTER 11/13/2017 [facility] Ot Z90.89 ACQUIRED ABSENCE OF OTHER ORGANS 11/15/2017 [facility] FILIBERTO K Ot D64.9 ANEMIA, UNSPECIFIED 11/15/2017 [facility] FILIBERTO Elizabeth Ot E03.9 HYPOTHYROIDISM, UNSPECIFIED 11/15/2017 [facility] FILIBERTO Elizabeth Ot E11.9 TYPE 2 DIABETES MELLITUS WITHOUT COMPLIC 11/15/2017 [place] FILIBERTO K Ot F32.9 MAJOR DEPRESSIVE DISORDER, SINGLE EPISOD 11/15/2017 [place] FILIBERTO Elizabeth Ot F41.9 ANXIETY DISORDER, UNSPECIFIED 11/15/2017 [facility] FILIBERTO Elizabeth Ot M25.531 PAIN IN RIGHT WRIST 11/15/2017 [facility] FILIBERTO Elizabeth Ot S52.201A UNSP FRACTURE OF SHAFT OF RIGHT ULNA, IN 11/15/2017 [facility] FILIBERTO K Ot S52.571A OTH INTARTIC FRACTURE OF LOWER END OF RI 11/15/2017 [place] FILIBERTO K Ot W00.0XXA FALL ON SAME LEVEL DUE TO ICE AND SNOW, 11/15/2017 YIMI DO FILIBERTO K Ot Z88.2 ALLERGY STATUS TO SULFONAMIDES STATUS 11/15/2017 [facility] Ot Z88.5 ALLERGY STATUS TO NARCOTIC AGENT STATUS 11/15/2017 [facility], FILIBERTO K Ot Z90.710 ACQUIRED ABSENCE OF BOTH CERVIX AND UTER 11/15/2017 FILIBERTO GELLER DO Ot Z90.89 ACQUIRED ABSENCE OF OTHER ORGANS 11/17/2017 TAW[place] GABRIELLA FERNANDEZ Ot I10 ESSENTIAL (PRIMARY) HYPERTENSION 11/17/2017 TAWANDAER , GABRIELLA S Ot I65.23 OCCLUSION AND STENOSIS OF BILATERAL CHEN 12/06/2017 ORENDER DO, GABRIELLA S Ot R05 COUGH 12/24/2017 ORENDER DO, GABRIELLA S Ot R05 COUGH 12/29/2017 SELAMNDER DO, GABRIELLA S Ot R05 COUGH 06/08/2018 LEONILA JOEY M SUPERVISOR INSPECTING Ot Z12.31 ENCNTR SCREEN MAMMOGRAM FOR MALIGNANT NE 06/08/2018 SELAMNDER , GABRIELLA Acuña Ot R92.8 OTH ABN AND INCONCLUSIVE FINDINGS ON DX 06/08/2018 TAWANDA GABRIELLA FERNANDEZ S Ot Z12.31 ENCNTR SCREEN MAMMOGRAM FOR MALIGNANT NE 06/08/2018 SELAMNDER , GABRIELLA S Ot R92.1 MAMMOGRAPHIC CALCIFCN FOUND ON DIAGNOSTI 06/08/2018 GABRIELLA WILSON DO S Ot M81.0 AGE-RELATED OSTEOPOROSIS W/O CURRENT PAT 06/08/2018 GABRIELLA WILSON DO S Ot I10 ESSENTIAL (PRIMARY) HYPERTENSION 06/08/2018 TAWANDAER , GABRIELLA S Ot I65.23 OCCLUSION AND STENOSIS OF BILATERAL CHEN 06/08/2018 SELAMNDER DO, GABRIELLA S Ot R05 COUGH 06/08/2018 SELAMNDER , GABRIELLA S Ot Z12.31 ENCNTR SCREEN MAMMOGRAM FOR MALIGNANT NE 06/14/2018 SELAMNDER , GABRIELLA S Ot Z12.31 ENCNTR SCREEN MAMMOGRAM FOR MALIGNANT NE 2018 PEARL ROLLE MD, Ot D51.9 VITAMIN B12 DEFICIENCY ANEMIA, UNSPECIFI 2018 PEARL ROLLE MD, Ot E11.9 TYPE 2 DIABETES MELLITUS WITHOUT COMPLIC 2018 PEARL ROLLE MD, Ot E89.0 POSTPROCEDURAL HYPOTHYROIDISM 2018 PEARL ROLLE MD, Ot F32.9 MAJOR DEPRESSIVE DISORDER, SINGLE EPISOD 2018 PEARL ROLLE MD, Ot F41.9 ANXIETY DISORDER, UNSPECIFIED 2018 PEARL ROLLE MD, Ot G47.9 SLEEP DISORDER, UNSPECIFIED 2018 PEARL ROLLE MD, Ot I10 ESSENTIAL (PRIMARY) HYPERTENSION 2018 PEARL ROLLE MD, Ot K21.9 GASTRO-ESOPHAGEAL REFLUX DISEASE WITHOUT 2018 PEARL ROLLE MD, Ot K43.0 INCISIONAL HERNIA WITH OBSTRUCTION, WITH 2018 PEARL ROLLE MD, Ot K44.9 DIAPHRAGMATIC HERNIA WITHOUT OBSTRUCTION 2018 PEARL ROLLE MD, Ot M54.9 DORSALGIA, UNSPECIFIED 2018 PEARL ROLLE MD, Ot M79.7 FIBROMYALGIA 2018 PEARL ROLLE MD, Ot M81.0 AGE-RELATED OSTEOPOROSIS W/O CURRENT PAT 2018 PEARL ROLLE MD, Ot Z86.010 PERSONAL HISTORY OF COLONIC POLYPS Procedures Code Description Performed By Performed On [id number] DRAINAGE OF STOMACH WITH DRAINAGE DEVICE 06/25/2018 Results Test Result Range Complete urinalysis with [...] - 06/25/18 19:51 Lipase 22 U/L 8-78 Complete blood count (CBC) with automated white blood cell (WBC) differential - 06/26/18 04:58 Blood leukocytes automated count (number/volume) 11.4 10*3/uL 4.3-11.0 Blood erythrocytes automated count (number/volume) 4.19 10*6/uL 4.35-5.85 Venous blood hemoglobin measurement (mass/volume) 12.9 g/dL 11.5-16.0 Blood hematocrit (volume fraction) 39 % 35-52 Automated erythrocyte mean corpuscular volume 93 [foz_us] 80-99 Automated erythrocyte mean corpuscular hemoglobin (mass per erythrocyte) 31 pg 25-34 Automated erythrocyte mean corpuscular hemoglobin concentration measurement ( mass/volume) 33 g/dL 32-36 Automated erythrocyte distribution width ratio 13.6 % 10.0-14.5 Automated blood platelet count (count/volume) 287 10*3/uL 130-400 Automated blood platelet mean volume measurement 10.4 [foz_us] 7.4-10.4 Automated blood neutrophils/100 leukocytes 73 % 42-75 Automated blood lymphocytes/100 leukocytes 18 % 12-44 Blood monocytes/100 leukocytes 8 % 0-12 Automated blood eosinophils/100 leukocytes 1 % 0-10 Automated blood basophils/100 leukocytes 0 % 0-10 Blood neutrophils automated count (number/volume) 8.3 10*3 1.8-7.8 Blood lymphocytes automated count (number/volume) 2.1 10*3 1.0-4.0 Blood monocytes automated count (number/volume) 0.9 10*3 0.0-1.0 Automated eosinophil count 0.1 10*3/uL 0.0-0.3 Automated blood basophil count (count/volume) 0.0 10*3/uL 0.0-0.1 Comprehensive metabolic panel - 06/26/18 04:58 Serum or plasma sodium measurement (moles/volume) 140 mmol/L 135-145 Serum or plasma potassium measurement (moles/volume) 3.9 mmol/L 3.6-5.0 Serum or plasma chloride measurement (moles/volume) 109 mmol/L 98-107 Carbon dioxide 22 mmol/L 21-32 Serum or plasma anion gap determination (moles/volume) 9 mmol/L 5-14 Serum or plasma urea nitrogen measurement (mass/volume) 9 mg/dL 7-18 Serum or plasma creatinine measurement (mass/volume) 0.70 mg/dL 0.60-1.30 Serum or plasma urea nitrogen/creatinine mass ratio 13 NRG Serum or plasma creatinine measurement with calculation of estimated glomerular filtration rate > NRG Serum or plasma glucose measurement (mass/volume) 109 mg/dL 70-105 Serum or plasma calcium measurement (mass/volume) 8.8 mg/dL 8.5-10.1 Serum or plasma total bilirubin measurement (mass/volume) 0.4 mg/dL 0.1-1.0 Serum or plasma alkaline phosphatase measurement (enzymatic activity/volume) 71 U/L 40-136 Serum or plasma aspartate aminotransferase measurement (enzymatic activity/ volume) 16 U/L 5-34 Serum or plasma alanine aminotransferase measurement (enzymatic activity/volume ) 13 U/L 0-55 Serum or plasma protein measurement (mass/volume) 6.3 g/dL 6.4-8.2 Serum or plasma albumin measurement (mass/volume) 3.6 g/dL 3.2-4.5 CALCIUM CORRECTED 9.1 mg/dL 8.5-10.1 Methicillin resistant Staphylococcus aureus (MRSA) screening culture - 12:45 Methicillin resistant Staphylococcus aureus (MRSA) screening culture NEG NRG Automated blood complete blood count (hemogram) panel - 06/28/18 07:35 Blood leukocytes automated count (number/volume) 14.0 10*3/uL 4.3-11.0 Blood erythrocytes automated count (number/volume) 4.00 10*6/uL 4.35-5.85 Venous blood hemoglobin measurement (mass/volume) 12.3 g/dL 11.5-16.0 Blood hematocrit (volume fraction) 37 % 35-52 Automated erythrocyte mean corpuscular volume 92 [foz_us] 80-99 Automated erythrocyte mean corpuscular hemoglobin (mass per erythrocyte) 31 pg 25-34 Automated erythrocyte mean corpuscular hemoglobin concentration measurement ( mass/volume) 33 g/dL 32-36 Automated erythrocyte distribution width ratio 13.2 % 10.0-14.5 Automated blood platelet count (count/volume) 258 10*3/uL 130-400 Automated blood platelet mean volume measurement 10.3 [foz_us] 7.4-10.4 Whole blood basic metabolic panel - 06/28/18 07:35 Serum or plasma sodium measurement (moles/volume) 139 mmol/L 135-145 Serum or plasma potassium measurement (moles/volume) 4.1 mmol/L 3.6-5.0 Serum or plasma chloride measurement (moles/volume) 110 mmol/L 98-107 Carbon dioxide 20 mmol/L 21-32 Serum or plasma anion gap determination (moles/volume) 9 mmol/L 5-14 Serum or plasma urea nitrogen measurement (mass/volume) 5 mg/dL 7-18 Serum or plasma creatinine measurement (mass/volume) 0.63 mg/dL 0.60-1.30 Serum or plasma urea nitrogen/creatinine mass ratio 8 NRG Serum or plasma creatinine measurement with calculation of estimated glomerular filtration rate > NRG Serum or plasma glucose measurement (mass/volume) 125 mg/dL 70-105 Serum or plasma calcium measurement (mass/volume) 8.4 mg/dL 8.5-10.1 Automated blood complete blood count (hemogram) panel - 06/29/18 07:38 Blood leukocytes automated count (number/volume) 11.1 10*3/uL 4.3-11.0 Blood erythrocytes automated count (number/volume) 3.64 10*6/uL 4.35-5.85 Venous blood hemoglobin measurement (mass/volume) 11.6 g/dL 11.5-16.0 Blood hematocrit (volume fraction) 34 % 35-52 Automated erythrocyte mean corpuscular volume 94 [foz_us] 80-99 Automated erythrocyte mean corpuscular hemoglobin (mass per erythrocyte) 32 pg 25-34 Automated erythrocyte mean corpuscular hemoglobin concentration measurement ( mass/volume) 34 g/dL 32-36 Automated erythrocyte distribution width ratio 13.5 % 10.0-14.5 Automated blood platelet count (count/volume) 236 10*3/uL 130-400 Automated blood platelet mean volume measurement 10.6 [foz_us] 7.4-10.4 Whole blood basic metabolic panel - 06/29/18 07:38 Serum or plasma sodium measurement (moles/volume) 140 mmol/L 135-145 Serum or plasma potassium measurement (moles/volume) 3.7 mmol/L 3.6-5.0 Serum or plasma chloride measurement (moles/volume) 111 mmol/L 98-107 Carbon dioxide 21 mmol/L 21-32 Serum or plasma anion gap determination (moles/volume) 8 mmol/L 5-14 Serum or plasma urea nitrogen measurement (mass/volume) 5 mg/dL 7-18 Serum or plasma creatinine measurement (mass/volume) 0.60 mg/dL 0.60-1.30 Serum or plasma urea nitrogen/creatinine mass ratio 8 NRG Serum or plasma creatinine measurement with calculation of estimated glomerular filtration rate > NRG Serum or plasma glucose measurement (mass/volume) 87 mg/dL 70-105 Serum or plasma calcium measurement (mass/volume) 8.3 mg/dL 8.5-10.1 Encounters ACCT No. Visit Date/Time Discharge Status Pt. Type Provider Facility Loc./Unit Complaint [id number] 06/13/2018 15:08:00 06/13/2018 23:59:59 [facility] Outpatient GABRIELLA WILSON DO [facility] RAD SCREENING [id number] 06/08/2018 15:01:00 06/08/2018 23:59:59 [facility] Outpatient GABRIELLA WILSON DO [facility] RAD LOW BACK PAIN [id number] 12/02/2017 13:20:00 12/02/2017 23:59:59 [facility] Outpatient STEVE FERNANDEZ GABRIELLA S [facility] RAD COUGH [id number] 11/13/2017 21:28:00 11/13/2017 23:20:00 DIS Emergency FILIBERTO GELLER DO [facility] ER FELL ON ICE,POSS BROKEN R ARM [id number] 09/08/2017 09:00:00 09/08/2017 23:59:59 CLS Outpatient STEVE DO GABRIELLA S [facility] RAD CAROTID ARTERY STENOSIS [id number] 06/17/2017 10:26:00 06/17/2017 23:59:59 CLS Outpatient STEVE FERNANDEZ GABRIELLA S [facility] RAD POSTMENOPAUSAL OSTEOPOROSIS W/CURRENT L WRIST FRAC [id number] 05/27/2017 14:11:00 05/27/2017 23:59:59 CLS Outpatient STEVE FERNANDEZ GABRIELLA S [facility] RAD BILAT BREAST CALCIFICATIONS [id number] 05/19/2017 14:43:00 05/19/2017 23:59:59 CLS Outpatient STEVE FERNANDEZ GABRIELLA S [facility] RAD SCREENING Z12.31 [id number] 03/18/2017 19:47:00 03/18/2017 21:52:00 DIS Emergency JOSE ALFREDO LLOYD DIRECTOR MEETINGS [facility] ER FALL [id number] 03/10/2016 13:49:00 03/10/2016 23:59:59 CLS Outpatient JOEY KEEN SUPERVISOR INSPECTING [facility] RAD SCREENING [id number] 03/07/2015 15:18:00 03/07/2015 23:59:59 CLS Outpatient STEVE DO GABRIELLA S [facility] RAD [id number] 02/06/2015 15:36:00 02/06/2015 23:59:59 CLS Outpatient STEVE DO GABRIELLA S [facility] RAD [id number] 11/09/2014 10:12:00 11/09/2014 23:59:59 CLS Outpatient TAWANDAER GABRIELLA FERNANDEZ S [facility] RAD [id number] 09/03/2014 09:44:00 09/03/2014 23:59:59 CLS Outpatient MADELEINE STEELE MD [facility] [id number] 08/29/2014 06:08:00 08/29/2014 23:59:59 CLS Outpatient MADELEINE STEELE MD [facility] PREOP [id number] 03/01/2014 10:05:00 03/01/2014 23:59:59 CLS Outpatient GABRIELLA WILSON DO S [facility] RAD [id number] 08/28/2013 10:36:00 08/28/2013 14:00:00 DIS Outpatient MADELEINE STEELE MD [facility] [id number] 08/24/2013 07:11:00 08/24/2013 23:59:59 CLS Outpatient MADELEINE STEELE MD [facility] PREOP [id number] 07/27/2013 10:17:00 07/29/2013 14:21:00 DIS Outpatient MADELEINE STEELE MD [facility] [id number] 07/20/2013 21:58:00 07/21/2013 15:10:00 DIS Inpatient MEREDITH AGUILERA MD [facility] SURGICAL [id number] 04/14/2013 14:56:00 04/18/2013 14:30:00 DIS Inpatient GABRIELLA WILSON DO S [facility] SURGICAL [id number] 07/01/2018 14:08:00 Document Registration [id number] 06/25/2018 21:44:00 ACT Inpatient PEARL ROLLE MD [facility] 4TH VENTRAL ABDOMINAL INCISIONAL HERNIA [id number] 03/10/2016 13:49:00 Document Registration [id number] 12/22/2012 09:45:00 Document Registration [id number] 04/21/2012 10:00:00 Document Registration [id number] 10/30/2011 11:20:00 Document Registration [id number] 10/26/2011 10:58:00 Document Registration [id number] 03/25/2011 08:28:00 Document Registration [id number] 03/20/2011 13:36:00 Document Registration [id number] 10/30/2010 09:02:00 Document Registration [id number] 10/23/2010 09:04:00 Document Registration [id number] 03/08/2015 05:29:32 ACT Document Registration 06/27/16 06/13/2018 11:48:42 06/13/2018 23:59:59 Gabriella Haley
--- NOTE | 2018-07-01 15:47 | Occupational Therapy Eval ---
OT Evaluation-General/PLF Medical Diagnosis Admission Date Jul 01, 2018 at 13:43 Medical Diagnosis: ventral abdominal incision Onset Date: Jun 25, 2018 Therapy Diagnosis Therapy Diagnosis: decreased self care skills Height/Weight Height (Feet): 5 Height (Inches): 2.00 Weight (Pounds): 238 Weight (Ounces): 1.8 Referral Physician: Lesly Medical History Pertinent Medical History: DM, HTN, Hypothroidism Additional Medical History hysterectomy, carotid disease, left ankle fracture, bilateral wrist fracture Current History Pt had abdominal hernia with colon involvement. Pt underwent hernia repair with small bowel resection. Reviewed History: Yes Social History Home: Single Level Current Living Status: Children Entry Into Home: Stairs With Railing Steps Into Home: 3 ADL-Prior Level of Function ADL PLOF Comments Pt reports being independent with self care and mobility prior to hospitalization. Pt does use toileting aid. DME/Equipment: Shower, Tall Toilet Drive Self: Yes OT Current Status Subjective Pt just finished walking in [place] with daughter, agrees to treatment. Pt reports 6/10 pain in abdomen at incision site. Mental Status/Objective Patient Orientation: Person, Place, Time, Situation Attachments: Drains, IV Current Glasses/Contacts: Yes Hearing Aids: No Dentures/Partials: No Hand Dominance: Right Upper Extremity ROM Grossly functional Upper Extremity Coordination Intact ADL-Treatment ADL-Current Pt sit to stand with modified independence. Gait to restroom with IV push, no LOB noted. Pt completed toilet transfer with modified independence using grab bar for balance. Pt states she is getting up to restroom by herself, but is having a little difficulty keeping the toilet paper on the toileting aid. Pt was instructed in use of toileting aid and states understanding of education. Pt states she has been able to complete grooming tasks with set up. Pt is unable to reach her feet to doff/don socks. Instructed pt in use of adaptive equipment for LE dressing. Pt doffed socks with SBA using dressing stick. Donned socks with SBA and verbal cues using sock aid. Educated pt on donning pants with adaptive equipment, but pt did not complete lower body dressing at this time. Pt requests to return to bed after session. Sit to supine with minimal assistance to lift left LE onto bed. Pt resting in bed with needs met and daughter present after session. Functional Coats Measure 0=Not Assessed/NA 4=Minimal Assistance 1=Total Assistance 5=Supervision or Setup 2=Maximal Assistance 6=Modified Coats 3=Moderate Assistance 7=Complete IndependenceIRFPAI Quality Coding Scale 6 Independent with activity with or without an assistive device 5 Patient requires set up or clean up by helper. Patient completes activity by themselves 4 Supervision or touching assist (CGA). Anthony provide cues , steadying assist 3 The helper provides less than half the effort to complete the activity 2 The helper provides more than half the effort to complete the activity 1 Dependent. The helper does all the effort to complete an activity 7 Patient refused to complete or attempt activity 9 The patient did not perform the activity before the current illness or injury 88 Not attempted due to Medical conditions or safety concerns Eating (FIM): 7 (Pt reports feeding self without assistance) Eating (QC): 6 Grooming (FIM): 5 (set up by report) Oral Hygiene (QC): 5 Lower Body Dressing (FIM): 2 (max assist without assistive devices. Pt able to doff/don socks with SBA with adaptive equipment.) Toileting (FIM): 5 (by report) Toileting Hygiene (QC): 5 Toilet/Commode Transfer (FIM): 6 Education OT Patient Education: Modified ADL techniques, Rehab process Teaching Recipient: Patient Teaching Methods: Discussion Response to Teaching: Verbalize Understanding OT Short Term Goals Short Term Goals 1=Demonstrate adherence to instructed precautions during ADL tasks. 2=Patient will verbalize/demonstrate understanding of assistive devices/ modifications for ADL. 3=Patient will improve strength/tolerance for activity to enable patient to perform ADL's. OT Jail Goals Event Marketing Coordinator Goals Time Frame: Jul 08, 2018 Bathing(FIM): 5 Upper Body Dressing(FIM): 6 Lower Body Dressing(FIM): 6 Toileting(FIM): 6 Toileting Hygiene (QC): 6 Additional Goals: 2-Verbalize Understanding, 3-ImproveStrength/Humberto 1=Demonstrate adherence to instructed precautions during ADL tasks. 2=Patient will verbalize/demonstrate understanding of assistive devices/ modifications for ADL. 3=Patient will improve strength/tolerance for activity to enable patient to perform ADL's. OT Education/Plan Problem List/Assessment Assessment: Impaired Self-Care Skills Pt to benefit from short term skilled OT intervention to increase functional independence prior to discharge home. Discharge Recommendations Plan/Recommendations: Continue POC Treatment Plan/Plan of Care Treatment,Training & Education: Yes Patient would benefit from OT for education, treatment and training to promote independence in ADL's, mobility, safety and/or upper extremity function for ADL' s. Plan of Care: ADL Retraining, Functional Mobility, UE Funct Exercise/Act Treatment Duration: Jul 08, 2018 Frequency: 5 times per week Estimated Hrs Per Day: .25 hour per day Agreement: Yes Rehab Potential: Good Time/GCodes Start Time: 14:54 Stop Time: 15:19 Total Time Billed (hr/min): 24 Billed Treatment Time 1 visit, EVM(9minutes), ADL(15minutes) GERSON RUSSO OT Jul 01, 2018 15:47
[2018-07-01 17:42] VITALS: BP 139/65
[2018-07-01] MEDS: HYDROcodone/APAP 7.5 MG/325 MG (LORTAB, LORCET PLUS) TABLET PO PRN (19:52)
[2018-07-01] MEDS: CIPROFLOXACIN IV 400MG/200ML 200 ML IV SCH (23:35)
[2018-07-01] MEDS: metroNIDAZOLE 500MG/100ML IVPB 100 ML IV SCH (23:35)
[2018-07-02 06:00] VITALS: BP 145/64
[2018-07-02] MEDS: metroNIDAZOLE 500MG/100ML IVPB 100 ML IV SCH ×3 (06:57→23:44)
[2018-07-02] MEDS: PANTOPRAZOLE 40 MG (PROTONIX) TAB PO SCH (06:57)
[2018-07-02] MEDS: CATHETER FLUSH 10 ML SYR IV PRN (11:10)
[2018-07-02] MEDS: CIPROFLOXACIN IV 400MG/200ML 200 ML IV SCH ×2 (11:14→23:44)
[2018-07-02 18:00] VITALS: BP 159/72
[2018-07-03] MEDS: PANTOPRAZOLE 40 MG (PROTONIX) TAB PO SCH (06:10)
[2018-07-03] MEDS: metroNIDAZOLE 500MG/100ML IVPB 100 ML IV SCH ×2 (06:10→16:09)
[2018-07-03 06:18] VITALS: BP 137/66
[2018-07-03] MEDS: CATHETER FLUSH 10 ML SYR IV PRN (12:11)
[2018-07-03] MEDS: CIPROFLOXACIN IV 400MG/200ML 200 ML IV SCH (12:11)
[2018-07-03] MEDS: HYDROcodone/APAP 7.5 MG/325 MG (LORTAB, LORCET PLUS) TABLET PO PRN (16:45)
[2018-07-03 18:00] VITALS: BP 145/66
[2018-07-04] MEDS: metroNIDAZOLE 500MG/100ML IVPB 100 ML IV SCH ×2 (00:22→06:30)
[2018-07-04] MEDS: CIPROFLOXACIN IV 400MG/200ML 200 ML IV SCH (00:22)
[2018-07-04 05:52] VITALS: BP 136/61
[2018-07-04] MEDS: PANTOPRAZOLE 40 MG (PROTONIX) TAB PO SCH (06:30)
--- NOTE | 2018-07-04 16:49 | Therapy Team Discharge Summary ---
Therapy Discharge Summary Discharge Recommendations Date of Discharge Jul 04, 2018 at 11:56 Occupational Therapy Pt was seen for skilled OT to increase her independence in basic self care. On admission she was able to feed herself independently, groom with SBA at sink, dress lower body with max assist, toilet with SBA and complete toilet transfer modified independently. She was not seen by OT prior to discharge but nursing documentation shows that she was up ad bob in her room so should have been toileting and grooming herself. She was also documented as independent with eating. See tx plan for goals met. DC OT Impaired Self-Care Skills OT Combining Machine Operator Goals Combining Machine Operator Goals Time Frame: Jul 08, 2018 Bathing(FIM): 5 Upper Body Dressing(FIM): 6 Lower Body Dressing(FIM): 6 Toileting(FIM): 6 (met) Toileting Hygiene (QC): 6 (met) Additional Goals: 2-Verbalize Understanding, 3-ImproveStrength/Humberto 1=Demonstrate adherence to instructed precautions during ADL tasks. 2=Patient will verbalize/demonstrate understanding of assistive devices/ modifications for ADL. 3=Patient will improve strength/tolerance for activity to enable patient to perform ADL's. LAZARA MEAD OT Jul 04, 2018 16:49
--- NOTE | 2018-07-13 03:08 | DISCHARGE SUMMARY ---
DATE OF SERVICE: ATTENDING PRIMARY CARE PHYSICIAN: Gabriella Manriquez DO ADMISSION DIAGNOSES: Abdominal pain, nausea and vomiting, status post exploratory laparotomy, small bowel resection and incarcerated recurrent ventral abdominal incisional hernia repair. POST-ADMISSION DIAGNOSES: Abdominal pain, nausea and vomiting, status post exploratory laparotomy, small bowel resection and incarcerated recurrent ventral abdominal incisional hernia repair. OTHER DIAGNOSES: Degenerative joint disease, osteoporosis, fibromyalgia, hypothyroid, noninsulin dependent diabetes, anxiety, depression, vitamin B12 deficiency. PRINCIPAL PROCEDURE: Exploratory laparotomy, lysis of adhesions, small bowel resection and anastomosis, small bowel repair, repair of multiple recurrent ventral abdominal incisional hernias primarily. No additional procedures. No complications. DISPOSITION: The patient did well during her swing bed status and was able to ambulate better, tolerate regular diet and increase her strength and do the majority of her normal activities of daily living. HOSPITAL COURSE: The patient is a 72-year-old female who presented to the Emergency Department with a 2-day history of abdominal distention, crampy pain, which progressed to nausea and vomiting. A CT scan was performed, which did show dilated loops of small bowel as well as distended stomach. An incisional hernia was identified, which was nonreducible and recurrent. She had previous multiple open surgeries before in the past and was otherwise stable and afebrile, did not have any peritoneal signs. She was admitted for IV hydration, pain control as well as surgery. PAST MEDICAL HISTORY: Gastroesophageal reflux disease, fibromyalgia, degenerative joint disease, hypothyroid, diabetes, anxiety, depression, vitamin B12 deficient anemia. PAST SURGERIES: Open cholecystectomy, open hysterectomy, open ventral abdominal incisional hernia repair, laparoscopic, recurrent ventral abdominal incisional hernia repair. ALLERGIES: MORPHINE, SULFA. CURRENT MEDICATIONS: Levothyroxine 100 mcg daily, losartan 100 mg daily, cholecalciferol daily, vitamin B12 daily. SOCIAL HISTORY: Negative smoke, negative alcohol. FAMILY HISTORY: Noncontributory. The patient did well after surgery on 06/27/2018. The surgery was more extensive than thought where she was found to have significant adhesions, which took a significant amount of time to take them down. She also had very dense adhesion tissue and during the lysis of adhesions, it was noted that she did have a significant size in enterotomy greater than 50% requiring resection and anastomosis. There is also another smaller enterotomy encompassing 25% of the lumen, which was closed primarily. There were multiple recurrent incisional hernias identified, which were connected with cautery midline. It was decided to close all of these primarily with #1 PDS looped sutures. The patient did well after surgery and was sent to the general surgical floor. She did have adequate pain control with MAINTENANCE MECHANIC TELEPHONE pump and we did proceed with DVT prophylaxis with calf SCDs. She was able to have some bowel function and developed flatus and was started on clear liquid diet and this was eventually advanced to a DYS low residue diet. Also, intraoperatively, she was found to have extensive chronic inflammatory changes and edema as well as mesenteric fat creeping along the entirety of the small bowel, most likely indicating an undiagnosed inflammatory bowel disease like Crohn disease. Also due to contamination from the enterotomy, was Sergo-Laguerre drains were placed and she needed extended spectrum antibiotic therapy IV. Her admission status was changed to swing bed status on 07/01/2018. Throughout the process, she did well. She was able to tolerate a low residue diet without any difficulty and with continued walking with a walker three to four times a day. She states that her strength increased to the point where she was ambulating at her normal capacity at home. She was also able to do the majority of her activities of daily living including showering and using the bathroom. Her vital signs remained throughout the hospital course and her incision was clean, dry and intact. She was discharged home on 07/04/2018. HOME GOING INSTRUCTIONS: Low residue diet for the next 2 weeks. Resume previous home medications, Lortab p.r.n., Cipro 500 mg b.i.d. for the next 7 days, Flagyl 500 mg x7 days, Lortab p.r.n. She was instructed to follow up in the office in approximately 1 week for staple removal. Job ID: [id number] DocumentID: [id number] Dictated Date: 07/12/2018 19:35:15 Artillery Or Naval Gunfire Observer Date: 07/13/2018 03:07:57 Dictated By: PEARL ROLLE MD
== END 2018-07-04 11:56 | disposition home or self-care (01) | DRG 949 ==
LOC: 4TH 13:43
PROVIDERS: ADMIT Surgery; ATTEND Surgery
DX: Z48.815 Encounter for surgical aftercare following surgery on the digestive system (principal); E11.9 Type 2 diabetes mellitus without complications; I10 Essential (primary) hypertension; K21.9 Gastro-esophageal reflux disease without esophagitis; K44.9 Diaphragmatic hernia without obstruction or gangrene; E66.01 Morbid (severe) obesity due to excess calories; Z68.41 Body mass index [BMI] 40.0-44.9, adult; E89.0 Postprocedural hypothyroidism; M81.0 Age-related osteoporosis without current pathological fracture; M79.7 Fibromyalgia; M54.9 Dorsalgia, unspecified; F41.9 Anxiety disorder, unspecified; F32.9 Major depressive disorder, single episode, unspecified; D51.9 Vitamin B12 deficiency anemia, unspecified; Z86.010 Personal history of colon polyps; M19.90 Unspecified osteoarthritis, unspecified site

== ENCOUNTER → 2019-06-06 | Outpatient (CLI) | payer MEDICARE ==
[~2019-06-06] MED LIST changes: +CIPR500T4 PO; +HYDR-34 PO; +LOSA100T57 PO; -LOSA100T8 PO; +METR-145 PO
--- NOTE | 2019-06-06 14:33 | Diagnostic Imaging Report ---
INDICATION: RUQ PAIN POST FALL. COMPARISON: 06/25/2018. FINDINGS: Frontal and lateral views of the chest demonstrate normal heart size and pulmonary vascularity. The lungs are clear. There are no signs of infiltrate, pleural effusions or pneumothoraces. The visualized osseous structures show no acute abnormalities. IMPRESSION: 1. No acute process. No signs of infiltrates, effusions or pneumothoraces. Dictated by: Dictated on workstation # [id number]
--- NOTE | 2019-06-06 14:34 | Diagnostic Imaging Report ---
INDICATION: Fall. Right-sided rib pain. COMPARISON: None. FINDINGS: Three views of the right ribs were obtained. There is no fracture, dislocation, or other acute bony abnormality identified. Visualized portions of the right lung are clear. The surrounding soft tissues appear unremarkable. No radiopaque foreign bodies are seen. IMPRESSION: No healing or displaced right-sided rib fractures. Dictated by: Dictated on workstation # [id number]
== END ==
LOC: RAD 13:48
PROVIDERS: ATTEND Nurse Practitioner Family
DX: R10.11 Right upper quadrant pain (principal); R07.81 Pleurodynia; W19.XXXA Unspecified fall, initial encounter
CPT/HCPCS: 71046; 71100

== ENCOUNTER → 2019-06-07 | Outpatient (CLI) | payer MEDICARE ==
--- NOTE | 2019-06-07 09:14 | Diagnostic Imaging Report ---
PROCEDURE: US Hepatic (Liver). TECHNIQUE: Multiple Real-time grayscale images were obtained over the right upper quadrant in various projections. INDICATION: Fall with right upper quadrant pain. FINDINGS: The liver is normal in size at 16.3 cm. There is generalized increased echogenicity throughout the liver, consistent with hepatic steatosis. The portal vein is patent and shows normal direction of flow. No liver mass is identified. The gallbladder is surgically absent. No definite biliary ductal dilatation is seen. The visualized pancreas is unremarkable. The pancreatic tail is poorly visualized due to bowel gas. The right kidney is without calculus or hydronephrosis. There is no ascites. IMPRESSION: 1. Hepatic steatosis. 2. Status post cholecystectomy. 3. No acute feature is detected. Dictated by: Dictated on workstation # [id number]
== END ==
LOC: RAD 08:26
PROVIDERS: ATTEND Nurse Practitioner Family
DX: K76.0 Fatty (change of) liver, not elsewhere classified (principal); Z91.81 History of falling; Z90.49 Acquired absence of other specified parts of digestive tract
CPT/HCPCS: 76705

== ENCOUNTER → 2019-06-15 | Outpatient (CLI) | payer MEDICARE ==
--- NOTE | 2019-06-15 19:14 | Diagnostic Imaging Report ---
INDICATION: Routine screening. Comparison is made with prior mammograms from 06/13/2018 and 05/19/2017. 2-D and 3-D bilateral screening mammography was performed. The current study was also evaluated with a Computer Aided Detection (CAD) system. 3-D tomosynthesis was also performed and reviewed. FINDINGS: Scattered fibroglandular densities are identified bilaterally. Areas of nodularity and calcifications bilaterally are again noted and appear stable. No new mass or malignant-appearing microcalcifications are seen. Axillae are unremarkable. IMPRESSION: No mammographic features suspicious for malignancy are identified. ACR BI-RADS Category 2: Benign findings. Result letter will be mailed to the patient. Note: At least 10% of breast cancer is not imaged by mammography. Dictated by: Dictated on workstation # [id number]
== END ==
LOC: RAD 09:33
PROVIDERS: ATTEND Family Medicine
DX: Z12.31 Encounter for screening mammogram for malignant neoplasm of breast (principal)
CPT/HCPCS: 77067

== ENCOUNTER → 2020-05-13 | Outpatient (CLI) | payer MEDICARE ==
--- NOTE | 2020-05-13 14:08 | Diagnostic Imaging Report ---
PROCEDURE: US carotid duplex, bilateral. TECHNIQUE: Multiple real-time grayscale images were obtained over the carotid arteries in various projections, bilaterally. Additional spectral analysis and color Doppler duplex images were also obtained. INDICATION: Carotid artery stenosis. No significant plaquing is identified in either carotid system. Velocities are normal bilaterally. No velocity elevation or stenosis is identified. Both vertebral arteries show antegrade flow. IMPRESSION: No evidence of a hemodynamically significant stenosis. Parameters based on the consensus panel Snell-Scale and Doppler ultrasound criteria published August 2003, Radiology, Volume 229. DOPPLER (peak systolic velocity M/S Right Left CCA 1.15 .80 ICA Proximal 0.69 0.78 ICA Mid 0.78 0.82 ICA Distal 0.97 1.01 RATIO 0.84 1.27 ECA 0.98 0.89 VERT 0.37 0.62 Dictated by: Dictated on workstation # [id number]
== END ==
LOC: RAD 13:09
PROVIDERS: ATTEND Family Medicine
DX: I65.29 Occlusion and stenosis of unspecified carotid artery (principal)
CPT/HCPCS: 93880

== ENCOUNTER 2020-05-16 05:45 | Outpatient (CLI) | payer MEDICARE ==
[~2020-05-16] VITALS: Ht 154 cm; Wt 110.0 kg
[2020-05-16] MEDS ORDERED: GABA300C PO (16:00)
[2020-05-16] MEDS ORDERED: TELM40TA6 PO (16:00)
[2020-05-16] MEDS ORDERED: CHOL10007 PO (16:00)
== END 2020-05-16 16:07 | disposition home or self-care (01) ==
LOC: PREOP 05:45
PROVIDERS: ATTEND Surgery
DX: Z01.818 Encounter for other preprocedural examination (principal)

== ENCOUNTER → 2020-05-22 | Day surgery (SDC) | payer MEDICARE ==
[~2020-05-22] MED LIST changes: +GABA300C PO; +LIDOCAINE 1% INJ 20 ML 20 ML VIAL ONE; +LIDOCAINE JELLY 2% 6 ML SYRINGE ONE; +MIDAZOLAM 5 MG/5 ML (VERSED) VIAL ONE; +NS IV 500 ML 500 ML ONE; +TELM40TA6 PO; +fentaNYL INJECTION 100 MCG/2 ML AMP ONE
--- NOTE | 2020-05-22 20:50 | OPERATIVE REPORT ---
DATE OF SERVICE: 05/22/2020 ATTENDING PRIMARY CARE PHYSICIAN: Dr. Gabriella Manriquez. PREOPERATIVE DIAGNOSES: Screening colonoscopy with history of colon polyp, symptomatic skin lesion, right flank. POSTOPERATIVE DIAGNOSES: Mild chronic stage II external and internal hemorrhoids, moderate sigmoid diverticulosis, benign skin lesion, right flank approximately 1.5 cm in size. PROCEDURE: Colonoscopy, excision right flank lesion 1.5 cm in size. SURGEON: Dr. Rolle. ANESTHESIA: Conscious sedation with local. ESTIMATED BLOOD LOSS: Minimal. FINDINGS: Mild chronic stage II external and internal hemorrhoids, moderate sigmoid diverticulosis, benign skin lesion, right flank approximately 1.5 cm in size. DISPOSITION: The patient tolerated the procedure well. INDICATIONS: The patient is a 74-year-old female known to us. We had seen her in 2018 for abdominal pain. She was found to have an incarcerated hernia and on 06/27/2018, she underwent exploratory laparotomy and lysis of adhesions and small bowel resection and anastomosis due to two enterotomies adhered to the mesh. She was seen in the office and is in need of a colonoscopy. Last colonoscopy was approximately 10 years ago. She also has a skin lesion along the right flank, which has been around for years; however, has grown slightly larger in size, more raised and pruritic. The lesion is approximately 1.5 cm in size. DESCRIPTION OF PROCEDURE: The patient was brought to the endoscopy suite, laid in the left lateral decubitus position. The right flank was then prepped and draped in standard surgical fashion. A 1% lidocaine was used to anesthetize overlying skin and the lesion was then fully excised using a 15 blade in an elliptical shape that was approximately 1.5 cm in size. The lesion was sent to pathology and good hemostasis was observed with direct pressure and the skin edges were approximated using interrupted 4-0 nylon sutures. Wound was then cleaned and covered with a Band-Aid. We then proceeded with colonoscopy and a digital rectal examination was performed, which revealed chronic stage II external and internal hemorrhoids, not actively edematous nor inflamed and no bleeding. Normal sphincter tone was felt and there were no palpable masses. The endoscope was then intubated to the anus and rectum gently insufflated. The endoscope was then advanced through the valves of Vickers of the rectum with no polyps or any neoplasms identified. We then proceeded through the sigmoid colon where a moderate sigmoid diverticulosis identified. The endoscope was then advanced through the remainder of the descending, transverse and ascending colon to the cecum. These segments were normal. There were no polyps or any neoplasms identified. The endoscope was then slowly withdrawn while taking a second look and suctioning of residual air with no additional findings. The patient tolerated the procedure well. We will recommend a high fiber diet with at least 25 grams of fiber daily as well as significant amounts of water to promote soft stools on a daily basis and to prevent any further propagation of diverticulosis or complications related to them. We will also await the pathology results of the lesion and have her follow up in approximately one week to remove the sutures. Job ID: [id number] DocumentID: [id number] Dictated Date: 05/22/2020 12:11:20 Relief Charge Nurse Date: 05/22/2020 17:02:41 Dictated By: PEARL ROLLE MD
== END | disposition home or self-care (01) ==
LOC: ENDO 09:50
PROVIDERS: ATTEND Surgery
DX: Z12.11 Encounter for screening for malignant neoplasm of colon (principal); L82.1 Other seborrheic keratosis; D22.5 Melanocytic nevi of trunk; K64.1 Second degree hemorrhoids; K57.30 Diverticulosis of large intestine without perforation or abscess without bleeding; K21.9 Gastro-esophageal reflux disease without esophagitis; M79.7 Fibromyalgia; M19.91 Primary osteoarthritis, unspecified site; E03.9 Hypothyroidism, unspecified; E11.9 Type 2 diabetes mellitus without complications; F41.9 Anxiety disorder, unspecified; F32.9 Major depressive disorder, single episode, unspecified; E53.8 Deficiency of other specified B group vitamins; Z79.890 Hormone replacement therapy; Z79.899 Other long term (current) drug therapy; Z80.0 Family history of malignant neoplasm of digestive organs; Z88.2 Allergy status to sulfonamides; Z86.010 Personal history of colon polyps; Z88.5 Allergy status to narcotic agent
CPT/HCPCS: 11402; G0105

== ENCOUNTER → 2020-07-05 | Outpatient (CLI) | payer MEDICARE ==
[~2020-07-05] MED LIST changes: -LIDOCAINE 1% INJ 20 ML 20 ML VIAL ONE; -LIDOCAINE JELLY 2% 6 ML SYRINGE ONE; -MIDAZOLAM 5 MG/5 ML (VERSED) VIAL ONE; -NS IV 500 ML 500 ML ONE; -fentaNYL INJECTION 100 MCG/2 ML AMP ONE
--- NOTE | 2020-07-08 08:49 | Diagnostic Imaging Report ---
INDICATION: Routine screening. Comparison is made with prior mammogram 06/15/2019 and 06/13/2018. 2-D and 3-D bilateral screening mammography was performed with CAD. Scattered fibroglandular densities are identified bilaterally. Benign appearing nodules in both breasts are again noted and appear stable. The benign appearing calcifications in both breasts are stable. No spiculated mass or malignant appearing microcalcifications are identified. Axillae are unremarkable. IMPRESSION: BI-RADS Category 2 No mammographic features suspicious for malignancy are identified. ACR BI-RADS Category 2: Benign findings. Result letter will be mailed to the patient. Note: At least 10% of breast cancer is not imaged by mammography. Dictated by: Dictated on workstation # [id number]
== END ==
LOC: RAD 14:45
PROVIDERS: ATTEND Family Medicine
DX: Z12.31 Encounter for screening mammogram for malignant neoplasm of breast (principal)
CPT/HCPCS: 77063; 77067

== ENCOUNTER → 2020-11-04 | Outpatient (CLI) | payer MEDICARE ==
--- NOTE | 2020-11-04 17:24 | Diagnostic Imaging Report ---
INDICATION: Left knee pain, started hurting a few months ago. TECHNIQUE: 3 views of the left knee CORRELATION STUDY: None FINDINGS: Very mild joint space narrowing both medially and laterally. The articular surfaces are otherwise maintained. No acute bony abnormality. Soft tissues are unremarkable. IMPRESSION: 1. Negative for acute bony abnormality of the knee. Dictated by: Dictated on workstation # [id number]
== END ==
LOC: RAD 16:49
PROVIDERS: ATTEND Family Medicine
DX: M25.562 Pain in left knee (principal)
CPT/HCPCS: 73562

== ENCOUNTER → 2021-07-09 | Outpatient (CLI) | payer MEDICARE ==
[~2021-07-09] MED LIST changes: -CIPR500T4 PO; +CIPR500T5 PO; -CYAN250T PO; +CYAN250T3 PO; -LISI-552 PO; +LISI20TA26 PO
--- NOTE | 2021-07-09 16:44 | Diagnostic Imaging Report ---
HISTORY: Low back pain after fall. COMPARISON: 06/08/2018. TECHNIQUE: Three views of the lumbar spine. FINDINGS: There is mild left convex curvature of the lumbar spine with no spondylolisthesis. Bones appear osteopenic. Vertebral body heights are preserved. No acute fracture is seen. There are oqas-ha-tecoqxxs degenerative changes throughout the lumbar spine. Bilateral sacroiliac joints are patent. IMPRESSION: 1. Yiox-wm-pfmxachs degenerative changes in the lumbar spine with no acute fracture seen. Dictated by: Dictated on workstation # [id number]
== END ==
LOC: RAD 13:31
PROVIDERS: ATTEND Family Medicine
DX: M47.816 Spondylosis without myelopathy or radiculopathy, lumbar region (principal); W19.XXXA Unspecified fall, initial encounter
CPT/HCPCS: 72100

== ENCOUNTER → 2021-08-06 | Outpatient (CLI) | payer MEDICARE ==
--- NOTE | 2021-08-07 08:29 | Diagnostic Imaging Report ---
Indication: Routine screening. Comparison is made with prior mammogram from 07/05/2020 and 06/15/2019. 2-D and 3-D bilateral screening mammography was performed with CAD. Scattered fibroglandular densities are identified bilaterally. The benign calcifications in both breasts appears stable. Nodular densities in both breasts appears stable. No spiculated mass or malignant-appearing microcalcifications are seen. Axillae are unremarkable. IMPRESSION: BI-RADS Category 2 No mammographic features suspicious for malignancy are identified. ACR BI-RADS Category 2: Benign findings. Result letter will be mailed to the patient. Note: At least 10% of breast cancer is not imaged by mammography. Dictated by: Dictated on workstation # [id number]
== END ==
LOC: RAD 14:45
PROVIDERS: ATTEND Family Medicine
DX: Z12.31 Encounter for screening mammogram for malignant neoplasm of breast (principal)
CPT/HCPCS: 77063; 77067

== ENCOUNTER → 2022-08-10 | Outpatient (CLI) | payer MEDICARE ==
[~2022-08-10] MED LIST changes: +HYDR-4085 PO; -HYDR-87 PO
--- NOTE | 2022-08-11 11:59 | Diagnostic Imaging Report ---
Bilateral screening mammogram with CAD. This study was compared to the prior exams of 08/06/2021, 07/05/2020 and 06/15/2019. At this time there are no current complaints. The breasts are predominantly fatty. When compared to the previous study there does not appear to have been any significant change. The macrocalcifications in the right breast and the 3.5 cm macrocalcifications in the left breast seen previously are again evident and no different. There is no primary or secondary sign of malignancy noted. Impression: There is no evidence of malignancy. ACR BI-RADS Category 1: Negative. Result letter will be mailed to the patient. Note: At least 10% of breast cancer is not imaged by mammography. Dictated by: Dictated on workstation # [id number]
== END ==
LOC: RAD 14:22
PROVIDERS: ATTEND Nurse Practitioner Family
DX: Z12.31 Encounter for screening mammogram for malignant neoplasm of breast (principal)
CPT/HCPCS: 77063; 77067

== ENCOUNTER → 2022-10-16 | Outpatient (CLI) | payer MEDICARE ==
--- NOTE | 2022-10-16 15:16 | Diagnostic Imaging Report ---
EXAMINATION: CT head without contrast. TECHNIQUE: Multiple contiguous axial images were obtained through the brain without the use of intravenous contrast. All CT scans use one or more of the following dose optimizing techniques: automated exposure control, MA and/or KvP adjustment based on patient size and exam type or iterative reconstruction. HISTORY: Memory loss. Right-sided head pain. Headaches. COMPARISON: 03/18/2017. FINDINGS: No large acute territorial ischemia, mass, or hemorrhage. No midline shift or mass effect. Confluent decreased attenuation is seen in the left temporoparietal region, suggestive of chronic microvascular disease or ischemia. The ventricles, cortical sulci, and basilar cisterns are patent and unremarkable. The orbits are normal. Paranasal sinuses are normal. Mastoid air cells are clear. No soft tissue abnormality is seen. No osseus lesions or fractures are seen. IMPRESSION: 1. No large acute territorial ischemia, mass, or hemorrhage. 2. Chronic appearing ischemic changes involving the left temporoparietal region. If indicated, consider MRI of the brain to further evaluate. Dictated by: Dictated on workstation # [id number]
== END ==
LOC: RAD 14:45
PROVIDERS: ATTEND Family Medicine
DX: I67.82 Cerebral ischemia (principal)
CPT/HCPCS: 70450

== ENCOUNTER → 2022-10-20 | Outpatient (CLI) | payer MEDICARE ==
--- NOTE | 2022-10-21 16:38 | Diagnostic Imaging Report ---
PROCEDURE: US carotid duplex, bilateral. INDICATION: 77-year-old female, memory loss, headache. TECHNIQUE: Multiple real-time grayscale images were obtained over the carotid arteries in various projections bilaterally. Additional spectral analysis and color Doppler and Duplex images were also obtained. CORRELATION: None FINDINGS: Color images demonstrate very minimal atherosclerotic plaque to be present. Right carotid circulation: The right common carotid artery is normal in course and caliber. The right internal carotid artery is patent. No hemodynamically significant stenosis is present at this time. Right external carotid artery is patent. Left carotid circulation: The left common carotid artery is normal in course and caliber. The left internal carotid artery is patent. No hemodynamically significant stenosis is present at this time. Left external carotid artery is patent. Antegrade flow in the bilateral vertebral arteries. DOPPLER (peak systolic velocity M/S Right Left CCA .92 .64 ICA Proximal .53 .98 ICA Mid .63 .93 ICA Distal .86 1.1 RATIO .94 1.8 ECA 1.0 1.1 VERT .42 .37 IMPRESSION: 1. Minimal atherosclerosis involving bilateral carotid arteries. 2. No sonographic evidence to suggest a hemodynamically significant stenosis of the internal carotid arteries at this time. Parameters based on the consensus panel Snell-Scale and Doppler ultrasound criteria published August 2003, Radiology, Volume 229. Dictated by: Dictated on workstation # [id number]
== END ==
LOC: CARD 13:18
PROVIDERS: ATTEND Family Medicine
DX: M31.6 Other giant cell arteritis (principal); R41.3 Other amnesia; R51.9 Headache, unspecified
CPT/HCPCS: 93880; C8929; 93306

== ENCOUNTER → 2022-11-02 | Outpatient (CLI) | payer MEDICARE ==
--- NOTE | 2022-11-02 13:01 | Diagnostic Imaging Report ---
CLINICAL INDICATION: Patient is having memory problems, headaches, possible stroke. Patient states the symptoms started after getting COVID. EXAM: MRI of the brain performed without IV contrast. Sequences include axial DWI, ADC map, axial T1, axial T2, axial FLAIR, axial gradient echo, sagittal T1, axial FSPGR THEODORE. COMPARISON: Head CT without contrast dated 10/16/2022. FINDINGS: There is a 3.7 cm x 2.7 cm x 2.8 cm (AP x Trans x CC) heterogeneous mass involving the posterior left temporal lobe/occipital lobe region. There is a small amount of confluent adjacent parenchymal edema. There is a 12 mm x 8 mm low T1/T2 signal involving the parafalcine right frontal region. This area represented calcification on the prior CT scan. There are multiple focal, patchy, and confluent areas of high T2 signal involving the white matter of both cerebral hemispheres, periventricular regions, and choco, likely representing chronic small vessel ischemic disease and leukoaraiosis. There is no brain herniation or midline shift. Basal cisterns are unremarkable. The [place] vascular structures show no gross abnormality as visualized. There is mild mucosal thickening involving the ethmoid sinus. Mastoid air cells are clear. IMPRESSION: 1: There is a 3.7 cm heterogeneous mass in the left posterior left temporal/occipital lobe region. This mass appears to be intra-axial. Primary glioma or metastatic disease should be excluded. MRI of the brain with contrast is suggested for further evaluation. 2: There is a calcification in the right frontal parafalcine region. 3: There are age-appropriate brain parenchymal changes. Dictated by: Dictated on workstation # [id number]
== END ==
LOC: RAD 10:15
PROVIDERS: ATTEND Family Medicine
DX: R22.0 Localized swelling, mass and lump, head (principal); I63.533 Cerebral infarction due to unspecified occlusion or stenosis of bilateral posterior cerebral arteries; R41.3 Other amnesia
CPT/HCPCS: 70551

== ENCOUNTER → 2022-11-05 | Outpatient (CLI) | payer MEDICARE ==
[~2022-11-05] MED LIST changes: +GADOTERATE 0.5 MMOL/ML (CLARISCAN) 20 ML VIAL IV ONE
--- NOTE | 2022-11-05 15:18 | Diagnostic Imaging Report ---
PROCEDURE: MR imaging of the brain with contrast. TECHNIQUE: Multiplanar, multisequence MR imaging of the brain was performed with contrast. INDICATION: Left temporal lobe mass. COMPARISON: MRI brain without contrast 11/02/2022. FINDINGS: Enhancing mass in the left posterior temporal lobe measures 2.9 x 4.0 cm. This mass appears to be extra-axial with small dural tails. There is mild vasogenic edema about this mass on the comparison noncontrast exam. No midline shift. No other abnormal intracranial enhancement. Normal morphology of the major midline structures, sella, posterior fossa and cerebellar pontine angle. No suspicious osseous enhancement. IMPRESSION: Enhancing mass in the left temporal lobe is most likely extra-axial with subtle dural tails. There is also mild vasogenic edema about the periphery of this mass. Overall findings most compatible with a benign meningioma. However, continued followup is recommended if intervention is not performed. Dictated by: Dictated on workstation # [id number]
== END ==
LOC: RAD 12:30
PROVIDERS: ATTEND Family Medicine
DX: G93.89 Other specified disorders of brain (principal)
CPT/HCPCS: 70552

== ENCOUNTER 2022-11-26 05:39 | Outpatient (CLI) | payer MEDICARE ==
[~2022-11-26] VITALS: Ht 154.9 cm; Wt 108.0 kg
[~2022-11-26 05:39] MED LIST changes: -GADOTERATE 0.5 MMOL/ML (CLARISCAN) 20 ML VIAL IV ONE
[2022-11-30] MEDS ORDERED: PRD20T PO (16:50)
[2022-11-30] MEDS ORDERED: TRZ50T PO (16:50)
[2022-11-30] MEDS ORDERED: ASPI-999 PO (16:50)
[2022-11-30] MEDS ORDERED: SERT-414 PO (16:50)
== END 2022-11-30 17:08 ==
LOC: PREOP 05:39
PROVIDERS: ATTEND Surgery
DX: Z01.818 Encounter for other preprocedural examination (principal); M31.6 Other giant cell arteritis

== ENCOUNTER 2022-12-03 09:51 | Day surgery (SDC) | payer MEDICARE ==
--- NOTE | 2022-11-26 06:44 | HISTORY AND PHYSICAL ---
DATE OF ADMISSION: 12/03/2022. ATTENDING PRIMARY CARE PHYSICIAN: Gabriella Manriquez DO HISTORY OF PRESENT ILLNESS: The patient is a 77-year-old female known to us. She had abdominal pain and she was found to have an incarcerated hernia and on 06/27/2018, she underwent exploratory laparotomy, lysis of adhesions as well as a small bowel resection. She has also underwent an endoscopy by us. She states that she developed a new issue in 09/2022. She developed a severe headache, which was constant. She does not report ever having this type of headache or migraine headaches in the past. She was started on oral steroids and states that this did help some; however, she continues to have symptoms on a daily basis; however, more on an intermittent basis. She states that she has had some loss of memory as well as some mild visual changes. Unfortunately, it was difficult to differentiate potential long COVID symptoms. She states that she contracted COVID in September. She reports that multiple labs were drawn and her ESR and CRP have been elevated. She was referred over to us for a temporal artery biopsy to rule out temporal arteritis. PAST MEDICAL HISTORY: Gastroesophageal reflux disease, fibromyalgia, degenerative joint disease, hypothyroid, diabetes, anxiety, depression, vitamin B12 deficiency. PAST SURGICAL HISTORY: Open cholecystectomy, open hysterectomy, open ventral abdominal incisional hernia repair, exploratory laparotomy, lysis of adhesions, small bowel resection, primary repair of recurrent incarcerated ventral abdominal incisional hernia in 2018. ALLERGIES: MORPHINE, SULFA. MEDICATIONS: Trazodone 50 mg at bedtime, prednisone 30 mg b.i.d., sertraline 100 mg daily, telmisartan 40 mg daily, levothyroxine 100 mcg daily, spironolactone 50 mg daily, vitamin D3 5000 units b.i.d. SOCIAL HISTORY: Negative smoke, negative alcohol. FAMILY HISTORY: Grandmother with colon cancer. REVIEW OF SYSTEMS: A well-nourished female, currently in no acute distress. She is not experiencing shortness of breath or difficulty breathing. No chest pain, palpitations, diaphoresis. No nausea, vomiting with a persistent headache, more on the right side with mild memory loss as well as visual changes. No diarrhea, constipation, no red blood per rectum, no dark tarry stools. No focal deficits. No fever, chills, no recent inadvertent weight loss. All other review of systems negative. PHYSICAL EXAMINATION: CHEST: Clear. Good breath sounds bilaterally. HEART: Regular. No murmurs. EXTREMITIES: No lower extremity edema. Negative Homans sign. HEENT: No scleral icterus. No cervical lymphadenopathy. ABDOMEN: Soft, nontender, nondistended. SKIN: Warm, dry. ASSESSMENT AND PLAN: A 77-year-old female with persistent headache, elevated inflammatory mediators on labs with a mild incisional and memory loss. She is currently being treated with prednisone 30 mg daily for temporal arteritis. However, she will require a temporal artery biopsy for proper diagnosis and continued treatment, which we will schedule. Job ID: [id number] DocumentID: [id number] Dictated Date: 11/24/2022 16:53:52 Recovery Assistant Date: 11/24/2022 17:21:00 Dictated By: PEARL ROLLE MD
[2022-12-03] VITALS (7 sets, daily range): BP systolic 117–136; BP diastolic 61–65
[~2022-12-03 09:51] MED LIST changes: +ASPI-999 PO; +PRD20T PO; +SERT-414 PO; +TRZ50T PO
[2022-12-03] MEDS ORDERED: BUP/EPI 0.25% 1:200,000 (MARCAINE) 30 ML VIAL ONE (10:01)
[2022-12-03] MEDS ORDERED: ACETAMINOPHEN 325 MG TABLET PO PRN (10:15)
[2022-12-03] MEDS ORDERED: HYDROcodone/APAP 5 MG/325 MG (LORTAB) TAB PO ONE (10:15)
[2022-12-03] MEDS ORDERED: fentaNYL INJ 100 MCG/2 ML AMP IVP PRN (10:15)
[2022-12-03] MEDS ORDERED: ONDANSETRON 4 MG/2 ML (SDV) Z0FRAN IVP PRN ×2 (10:15→12:00)
--- NOTE | 2022-12-03 10:15 | Progress Note-Pre Operative ---
Pre-Operative Progress Note Date H&P Reviewed: Dec 03, 2022 Time H&P Reviewed: 10:05 History & Physical: H&P Reviewed, Patient Examed, No changes noted Pre-Operative Diagnosis: Temporal Arteritis WADE ALBERTO APRN Dec 03, 2022 10:15
[2022-12-03] MEDS ORDERED: LIDOCAINE/EPI 1%-1:100,000 (XYLOCAINE) 20ML ONE (10:19)
[2022-12-03] MEDS ORDERED: HYDR-3817 PO (10:19)
--- NOTE | 2022-12-03 10:20 | Discharge Inst-Surgical ---
D/C Lap Instructions-KIDO Reconcile Patient Problems Problems Reviewed?: Yes New, Converted, or Re-Newed RX: RX on Chart Follow Up Appt in 2 weeks Activity as tolerated No driving for 24 hours No driving while on pain medications Regular Diet Symptoms to Report: Fever over 101 degree F, Nausea/Vomiting Infection Signs and Symptoms to report: Increased redness, Foul odor of wound, Increased drainage Bathing instructions: May shower Operative Area Clean/Dry; Keep incision clean/dry If any problems/questions: Contact your physician or go to Emergency Room WADE ALBERTO APRN Dec 03, 2022 10:20
[2022-12-03] MEDS ORDERED: ceFAZolin INJECTION 2,000 MG ONE (10:34)
[2022-12-03] MEDS ORDERED: NS (IVPB) 50 ML ONE (10:34)
[2022-12-03] MEDS ORDERED: PROPOFOL INJECTION 50 ML IV ONE ×2 (10:39→11:29)
[2022-12-03] MEDS ORDERED: MIDAZOLAM 2 MG/2 ML (VERSED) VIAL ONE (10:39)
[2022-12-03] MEDS ORDERED: ceFAZolin INJECTION 2,000 MG in NS (IVPB) 50 ML IV ONE (10:45)
[2022-12-03] MEDS ORDERED: LACTATED RINGERS 1,000 ML IV PRN (10:45)
[2022-12-03] MEDS ORDERED: LIDOCAINE/EPI 1%-1:100,000 (XYLOCAINE) 20ML INJ ONE (11:01)
--- NOTE | 2022-12-03 11:52 | Progress Note-Post Operative ---
Post-Operative Progess Note Surgeon (s)/Forging Operator (s) Surgeon PEARL ROLLE MD Forging Operator: saskia leonard [employer] Pre-Operative Diagnosis Temporal Arteritis Post-Operative Diagnosis same Procedure & Operative Findings Date of Procedure 12/03/22 Procedure Performed/Findings right temporal artery biopsy Anesthesia Type mac with local Estimated Blood Loss Estimated blood loss (mL): minimal Specimens/Packing Specimens Removed right temporal PEARL Prajapati MD Dec 03, 2022 11:52
--- NOTE | 2022-12-03 13:27 | OPERATIVE REPORT ---
DATE OF SERVICE: 12/03/2022 ATTENDING PRIMARY CARE PHYSICIAN: Gabriella Manriquez DO PREOPERATIVE DIAGNOSES: Persistent headaches, loss of memory, mild visual changes. POSTOPERATIVE DIAGNOSES: Persistent headaches, loss of memory, mild visual changes. PROCEDURE: Right temporal artery biopsy. SURGEON: Thanh Rolle MD TAPER MACHINE: Leo Guerrier APRN ANESTHESIA: Monitored anesthesia care with local. ESTIMATED BLOOD LOSS: Minimal. FINDINGS: Intact temporal artery confirmed by Doppler. DISPOSITION: The patient tolerated the procedure well. INDICATIONS: The patient is a 77-year-old female known to us. We had seen her before for an incarcerated hernia on 06/27/2018 and she underwent exploratory laparotomy, lysis of adhesions as well as small bowel resection. We also had done some endoscopy on her as well. She developed a severe headache, which was constant. She reports that she has not had this type of headache or migraine headaches in the past. She was started on oral steroids and states that this did help some; however, she continues to have symptoms on a daily basis, however, more on an intermittent basis. She also states that she has had some loss of memory as well as some mild visual changes. Unfortunately, it was difficult to differentiate potential long COVID symptoms where she contracted the virus in 09/2022. Multiple labs were drawn. ESR and CRP were elevated. She will need temporal artery biopsy. DESCRIPTION OF PROCEDURE: The patient was brought to the operating room, laid supine on the table. After adequate IV pain and sedative medications and monitored anesthesia care, the right gnosticist was prepped and draped in standard surgical fashion. 1% lidocaine was then used to anesthetize the overlying skin approximately 1 cm anterior to the tragus of the right ear. A vertical skin incision was then made using a #15 blade. Using a Doppler, we were able to localize the temporal artery and then this was dissected out using Metzenbaum scissors as well as electrocautery. The nerve and vein were identified and spared and the artery dissected out and proximal and distal ends were tied with 3-0 silk sutures and a 1 cm segment excised using Metzenbaum scissors and this was sent to pathology. Good hemostasis was observed. The skin was then closed using 4-0 Monocryl running subcuticular suture. Wound was then cleaned and covered with Dermabond. The patient tolerated the procedure well. We will await the biopsy results; however, she may proceed with all of her normal activities of daily living. Job ID: [id number] DocumentID: [id number] Dictated Date: 12/03/2022 11:56:59 Sales And Events Coordinator Date: 12/03/2022 13:24:00 Dictated By: THANH ROLLE MD
--- NOTE | 2022-12-03 13:57 | Anesthesia-General Post-Op ---
MAC Patient Condition Mental Status/LOC: Same as Preop Cardiovascular: Satisfactory Nausea/Vomiting: Absent Respiratory: Satisfactory Pain: Controlled Complications: Absent Post Op Complications Complications None Follow Up Care/Instructions Patient Instructions None needed. Anesthesiology Discharge Order Discharge Order Patient is doing well, no complaints, stable vital signs, no apparent adverse anesthesia problems. No complications reported per nursing. LUIS AMAYA CRNA Dec 03, 2022 13:56
== END 2022-12-03 12:45 | disposition home or self-care (01) ==
LOC: SDC 09:51
PROVIDERS: ATTEND Surgery
DX: R51.9 Headache, unspecified (principal); R41.3 Other amnesia; H53.8 Other visual disturbances; E66.01 Morbid (severe) obesity due to excess calories; Z68.42 Body mass index [BMI] 45.0-49.9, adult; Z86.16 Personal history of COVID-19
CPT/HCPCS: 87081; 88305